=== PATIENT | male | born 1945 | race Caucasian/White ===

== ENCOUNTER 2017-09-18 07:41 | Day surgery (SDC) | payer MEDICARE, BC, SELFPAY ==
--- NOTE | 2017-09-11 11:33 | EKG12_ITS ---
Test Reason : PRE-OP Blood Pressure : / mmHG Vent. Rate : 073 BPM Atrial Rate : 073 BPM P-R Int : 134 ms QRS Dur : 112 ms QT Int : 444 ms P-R-T Axes : 081 060 -19 degrees QTc Int : 489 ms Normal sinus rhythm ST & T wave abnormality, consider inferior ischemia Abnormal ECG Confirmed by GINA BYRD ([id number]), purchase request editor RENATO CARTER ([id number]) on 09/14/2017 2:42:19 PM Referred By: Lakisha Figueroa Confirmed By:GINA BYRD
[2017-09-11 11:49] LABS: Hematocrit 39.4 % (40-54); Hemoglobin 13.2 g/dl (13.0-16.5); Mean Corp Hgb Conc 33.5 g/gl (32-36); Mean Corpuscular Hgb 31.7 pg (27.0-32.0); Mean Corpuscular Volume 94.7 fL (80-94); Mean Platelet Vol. 10.1 fl (6.2-12.0); Platelet Count 262 K/mm3 (150-450); RBC Distribution Width CV 12.9 % (11.6-14.6); RBC Distribution Width SD 44.5 fl (35.1-43.9); Red Blood Count 4.16 M/mm3 (4.6-6.2); White Blood Count 8.2 K/mm3 (4.4-11.0)
[2017-09-11 11:50] LABS: Scan Indicated on CBC? Y/N NO
[2017-09-11 12:01] LABS: Partial Thromboplast Time 37.7 Seconds (24.1-36.2)
[2017-09-11 14:32] LABS: AST(SGOT) 22 U/L (15-37); Alanine Aminotransfer ALT/SGPT 21 U/L (16-61); Albumin, Serum 2.9 g/dL (3.2-5.0); Alkaline Phosphatase 110 U/L (45-117); Anion Gap 5 (5-15); BUN 17 mg/dL (7-18); Bilirubin, Direct 0.16 mg/dL (0.00-0.30); Calcium,Total 8.8 mg/dL (8.5-10.1); Chloride 102 mmol/L (98-107); Creatinine, Serum 1.31 mg/dL (0.70-1.30); EST Glomerular Filtration Rate 57 mL/min (>60); Est Glom Filt Rate - Afr Amer 69 mL/min (>60); Globulin 3.5 g/dL (2.2-4.2); Glucose 91 mg/dL (74-106); Potassium 4.2 mmol/L (3.5-5.1); Protein, Total 6.4 g/dL (6.4-8.2); Sodium Level 136 mmol/L (136-145)
[2017-09-18] VITALS (7 sets, daily range): BP systolic 118–165; BP diastolic 74–85; PULSE 72–82; RESP 16–18; TEMP 36–36.1; O2SAT 94–99; BMI 19.5
[2017-09-18] MEDS: Cefazolin 2 GM in 0.9% Normal Saline 100 ML IV (09:02)
--- NOTE | 2017-09-18 09:04 | PCM.DC.HER ---
Discharge Diet: No Restrictions Discharge Activity: Return to Normal Activity, May not drive while taking narcotic pain medications. Lifting Restrictions: no lifting greater than 20 pounds for 6 weeks Call your doctor if your incision/area has: Continuous Slow Oozing, Foul Smelling Discharge Call your doctor if you observe: Fever of 101 or Higher Additional Dressing/Incision Instructions:: Leave dressings in place. May get wet in shower. Do not soak - no tub baths/swimming Allergies/Adverse Reactions: Allergies morphine Adverse Reaction (Verified 09/11/17 10:19) Nausea Medications to take at Discharge Multivit-Min/FA/Lycopene/Lut [Centrum Silver Tablet] 1 ea PO DAILY 08/31/13 Paroxetine HCl [Paxil] 20 mg PO DAILY 08/31/13 Atorvastatin Calcium [Lipitor] 80 mg PO QHS #30 tab 09/04/13 Carvedilol [Coreg (Beta Gely)] 6.25 mg PO BID #60 tab 09/04/13 Albuterol Inhaler [Ventolin Hfa] 1 puff INHALATION Q4H PRN PRN 10/03/16 Beclomethasone Diprop Inhaler [Qvar 80 Mcg Inhaler] 1 puff INHALATION BID 10/03/16 prednisone 5 mg tablet 4 mg PO QDAY 06/25/17 Albuterol Aerosols [Ventolin Aerosols] 2.5 mg INHALATION 4X/DAY 09/11/17 Hydroxychloroquine [Plaquenil] 200 mg PO QODAY 09/11/17 Hydroxychloroquine [Plaquenil] 300 mg PO QODAY 09/11/17 Omeprazole [Prilosec] 40 mg PO BID 09/11/17 Varenicline [Chantix] 1 mg PO DAILY 09/11/17 Primary Care Physician: Charly Benz MD [Primary Care Provider] - Please Follow Up With: Yahaira Mccann PA-C - call When: to be seen in 7-10 days, please call for date and time, thank you
--- NOTE | 2017-09-18 09:07 | OP.PN_ITS ---
Immediate Post-Op Note Date of Procedure: 09/18/17 Primary Surgeon/Physician: Lakisha Figueroa group therapy counselor: NOT,DEFINED Pre-Operative Diagnosis: left inguinal hernia Post-Operative Diagnosis: same Surgery/Procedure Performed:: left inguinal hernia repair with mesh Description of Surgical Findings:: left inguinal hernia Estimated Blood Loss: < 5 ml Specimen's removed: none Type of Anesthesia:: Local MAC ASA Class: ASA3 Severe Disease - Admit VTE Documentation VTE Present on Admission: Yes VTE Mechan Device Prophylaxis: SCD's
[2017-09-18] MEDS: Bupivacaine 0.25% 30 ML Vial (10:00)
--- NOTE | 2017-09-18 10:19 | OP.PCM_ITS ---
Report of Operation Date of Procedure: 09/18/17 Pre-Operative Diagnosis: left inguinal hernia Post-Operative Diagnosis: same Surgery/Procedure Performed:: left inguinal hernia repair with mesh Description of Surgical Findings:: left inguinal hernia - direct health information internship: NOT,DEFINED Type of Anesthesia:: Local MAC Anesthesiologist: Zack Rowley Specimen's removed: none Estimated Blood Loss (mL): < 5 ml Fluids Replaced: 700 ml RL Description of Procedure: After informed consent was obtained, the patient was brought to the Operating Room and placed in the supine position. Appropriate time out protocol was followed. The patient was then placed under anesthesia. The left groin area and lower torso and genitalia were then prepped with a sterile surgical skin preparation. Sterile surgical drapes were placed. This skin and subcutaneous tissues were then widely infiltrated with the local anesthetic. A skin incision was then made with a 15 blade scalpel over the hernia site in a transverse oblique fashion and carried down to the subcutaneous tissues using sharp dissection. Any hemorrhage was adequately controlled with electrocautery. Division of the tissues along the incision line continued down to the external oblique fascia was identified. It was then divided along its fibers using sharp dissection carefully avoiding any injury to any blood vessels /nerves. The spermatic cord was then isolated using blunt dissection and tagged with a Belén drain. The hernia defect was identified as a direct inguinal hernia. The spermatic cord was carefully inspected. There was no indirect inguinal hernia sac present. A Perfix plug was then placed in the preperitoneal space after opening the already filmy transversalis fascia at the floor of the inguinal canal. The repair of the hernia was then done. The Perfix mesh edges were sutured superiorly to the confluence of the internal oblique and transversalis fascia and the inferior aspect was sutured to Eloy' s ligament using interrupted 0 prolene suture. Another suture was placed at the pubic tubercle. The patch portion of the mesh was then sutured with 0 prolene suture in a continuous fashion to include the confluence of the internal oblique fascia superiorly, the pubic tubercle medially, and the Eloy' s ligament inferiorly. The lateral 'legs' of the mesh were then wrapped around the spermatic cord to recreate the internal ring. The spermatic cord was then replaced in its proper anatomical position. The external oblique fascia was then reapproximated over the spermatic cord to close the roof of the inguinal canal with a running 2-0 vicryl suture. Rafat's fascia was reapproximated with interrupted 3-0 vicryl sutures. The skin incision was reapproximated with a running 4-0 Monocryl suture. Cavilon and steristrips were placed to reinforce the skin closure and a sterile opsite dressing was applied. The patient was brought from to the Recovery Room in stable condition. Grafts/Implants Used: Bard Mesh Perfix plug lot#[id number] - Complications none noted - Admit VTE Documentation VTE Present on Admission: Yes VTE Mechan Device Prophylaxis: SCD's
== END 2017-09-18 11:24 | disposition home or self-care (01) ==
LOC: SDC 07:41 → AC 07:42
PROVIDERS: Family Provider Family Medicine; PCP Family Medicine; Visit Provider Surgery
PROC: (CPT 49505; principal; 2017-09-18 09:00)
DX: K40.90 Unilateral inguinal hernia, without obstruction or gangrene, not specified as recurrent (principal); K22.70 Barrett's esophagus without dysplasia; J44.9 Chronic obstructive pulmonary disease, unspecified; I25.10 Atherosclerotic heart disease of native coronary artery without angina pectoris; N18.3 Chronic kidney disease, stage 3 (moderate); I50.9 Heart failure, unspecified; F32.9 Major depressive disorder, single episode, unspecified; I42.0 Dilated cardiomyopathy; E78.00 Pure hypercholesterolemia, unspecified; I73.9 Peripheral vascular disease, unspecified; M19.90 Unspecified osteoarthritis, unspecified site; I27.20 Pulmonary hypertension, unspecified; G25.81 Restless legs syndrome; K21.9 Gastro-esophageal reflux disease without esophagitis; Z87.442 Personal history of urinary calculi; Z87.448 Personal history of other diseases of urinary system; Z87.19 Personal history of other diseases of the digestive system; Z87.2 Personal history of diseases of the skin and subcutaneous tissue; Z95.820 Peripheral vascular angioplasty status with implants and grafts; F17.200 Nicotine dependence, unspecified, uncomplicated; Z79.52 Long term (current) use of systemic steroids; Z79.899 Other long term (current) drug therapy
CPT/HCPCS: 49505; 36415; 80048; 80076; 85027; 85610; 85730; J7120; C1781

== ENCOUNTER 2018-01-15 11:07 | Inpatient (IN) | payer MEDICARE, BC, SELFPAY ==
[2018-01-15] VITALS (21 sets, daily range): BP systolic 83–178; BP diastolic 42–70; PULSE 75–113; RESP 16–36; TEMP 36.7–39.3; O2SAT 88–100; BMI 18.3; BMI 19.1; BMI 19.2
[2018-01-15] MEDS: 0.9% Normal Saline 1,000 ML 999 ML IV (11:30)
--- NOTE | 2018-01-15 11:50 | ED.RN ---
DR. CARSON NOTIFIED OF PT TRIAGE BP. VERBAL ORDER GIVEN FOR BOLUS OF NS, 1000 ML TO BE GIVEN IN TRIAGE WHILE PT WAITS FOR ROOM.
[2018-01-15 11:53] LABS: Mucous, Urine 0 SEEN /hpf (<or=2+); Red Blood Cells-Urine 0 SEEN /hpf (0-5); Squamous Epithelial Cells - UA 0 SEEN /hpf (0-5)
[2018-01-15 11:54] LABS: Color, Urine Yellow (Yellow); Glucose, Dipstick Normal (Normal); Ketone-Dipstick 5 mg/dl (Negative); Leukocyte Esterase-Dipstick 500 /ul (Negative); Nitrite-Dipstick Positive (Negative); Occult Blood-Urine 250 /ul (Negative); Protein-Dipstick 100 mg/dl (Negative); Specific Gravity, Urine 1.025 (1.002-1.030); Urine Clarity Turbid (Clear); Urine Urobilinogen 4 mg/dl (Normal)
[2018-01-15 11:56] LABS: Urine Bilirubin Dipstick 3 mg/dL (Negative)
--- NOTE | 2018-01-15 11:59 | EKG12_ITS ---
Test Reason : CP Blood Pressure : / mmHG Vent. Rate : 073 BPM Atrial Rate : 073 BPM P-R Int : 136 ms QRS Dur : 100 ms QT Int : 420 ms P-R-T Axes : 083 063 261 degrees QTc Int : 462 ms Normal sinus rhythm ST & T wave abnormality, consider inferolateral ischemia Prolonged QT Abnormal ECG Confirmed by BRAN BENSON, NIKOLAS ([id number]), publishing editor RENATO CARTER ([id number]) on 01/19/2018 1:08:33 PM Referred By: ALLI Confirmed By:NIKOLAS SOTOMAYOR MD
[2018-01-15 12:09] LABS: Bacteria 3+ /hpf (None Seen); White Blood Cells >100 SEEN /hpf (0-5)
[2018-01-15 12:13] LABS: Absolute Lymphocyte Count 0.56 X10^3/ul (0.83-4.51); Absolute Neutrophil Count 27.8 X10^3/uL (2.0-7.7); Basophil# 0.05 X10^3/uL; Basophil% 0.2 % (0-1); Eosinophil# 0.05 X10^3/uL; Eosinophils% 0.2 % (0-5); Hematocrit 42.8 % (40-54); Hemoglobin 14.6 g/dl (13.0-16.5); Lymphocyte # 0.56 X10^3/ul (4.0); Lymphocyte % 1.9 % (19-41); Mean Corp Hgb Conc 34.1 g/gl (32-36); Mean Corpuscular Hgb 33.2 pg (27.0-32.0); Mean Corpuscular Volume 97.3 fL (80-94); Mean Platelet Vol. 10.6 fl (6.2-12.0); Monocyte# 1.49 X10^3/uL; Monocyte% 4.9 % (0-10); Neutrophil # 27.84 X10^3/uL (2.7-7.7); Neutrophil % 92.2 % (47-70); Platelet Count 206 K/mm3 (150-450); RBC Distribution Width CV 12.8 % (11.6-14.6); RBC Distribution Width SD 44.1 fl (35.1-43.9)
[2018-01-15 12:17] LABS: Anion Gap 7 (5-15); BUN 24 mg/dL (7-18); BUN/Creat Ratio 10.5 RATIO (10-20); Calcium,Total 9.1 mg/dL (8.5-10.1); Chloride 106 mmol/L (98-107); Creatinine, Serum 2.28 mg/dL (0.70-1.30); Differential Indicated SCAN CRITERIA MET; EST Glomerular Filtration Rate 30 mL/min (>60); Est Glom Filt Rate - Afr Amer 36 mL/min (>60); Estimated Creatinine Clearance 20.36 ml/min; Glucose 94 mg/dL (74-106); POSITIVE COUNT YES; POSITIVE DIFFERENTIAL YES; POSITIVE MORPHOLOGY NO; Sodium Level 139 mmol/L (136-145); White Blood Count 30.2 K/mm3 (4.4-11.0)
--- NOTE | 2018-01-15 12:18 | ED.RN ---
LAB RESULTED WBC 30.2, PHYSICIAN NOTIFIED
[2018-01-15] MEDS: Ceftriaxone 1 GM/50 ML BAG IV (12:21)
[2018-01-15 12:23] LABS: Lactic Acid 2.6 mmol/L (0.4-2.0)
--- NOTE | 2018-01-15 12:29 | ED.DCSUM_ITS ---
- ER Visit Summary Date of Service: 01/15/18 Chief Complaint: Frequency, nausea vomiting fever chills History of Present Illness: The patient is a 72 M with multiple medical problems who presents with fever and chills yesterday. He complains of urgency with minimal urine output and dysuria. He states his urine looks different. He gives orthostatic symptoms. He states he does not feel well. He denies headache, visual, ocular auditory symptoms. He does complain of chronic shortness of breath secondary COPD. He has had some intermittent chest pain. He denies diarrhea. He denies any paresthesia, anesthesia motor weakness. Physical Examination: Initial blood pressure was 83/42 with a mean arterial pressure of 55. He is not febrile tachycardic. He appears ill. Pupils equal round reactive paradoxic muscle intact. Sclerae anicteric. TMs normal. Mucosa is dry. Heart is regular. Lungs reveal and his story rales at the bases. There is diminished breath sounds bilaterally. Abdomen is soft with suprapubic discomfort. Is no CVA tenderness noted. He is alert oriented with nonfocal neurologic exam. Test Results: White count is 30.2 thousand with 92 segs. Hemoglobin slightly elevated for patient. BMP is remarkable for elevated creatinine of 2.28 which is higher than baseline. Urine reveals leukoesterase nitrites blood and microscopic reveals grade 100 W disease with 3+ bacteria. Lactate elevated 2.6. EKG reveals sinus rhythm rate of [address]-T wave changes inferiorly and laterally. The lateral changes are new. The inferior changes are not. Emergency Department Course and Treatment: Since there is a concern this patient is septic he received a 30 cc/kg bolus. He received 1 g of Rocephin. Treatment Plan: Admit PCU stepdown Disposition: Admit PCU stepdown Impression: 1. UTI 2. Severe sepsis 3. Hypotension fluid responsive 4. History of COPD 5. Acute on chronic renal failure This note was generated with StormMQ dictation software. It may contain incorrect words, spelling, and punctuation that were not noted in review of the chart prior to signing ED Disposition - Plan for ED Patient: Chief Complaint: Nausea/Vomiting/Diarrhea Referrals: Charly Benz MD [Primary Care Provider] -
--- NOTE | 2018-01-15 14:18 | PCM.HP.STD ---
Problem List (1) Ischemic cardiomyopathy Status: Chronic (2) Other [employer] (current) drug therapy Status: Chronic (3) Atherosclerotic heart disease of [place] coronary artery without angina pectoris Status: Chronic Comment: Nondominant right coronary artery with total proximal occlusion Main coronary artery with 30% distal stenosis Left anterior descending artery with mild diffuse disease Ostial circumflex artery with 80% stenosis in a dominant vessel per [facility] 09/04/2013 (4) Nonrheumatic tricuspid (valve) insufficiency Status: Chronic (5) Hyperlipidemia Status: Chronic (6) Depression Status: Chronic (7) COPD (chronic obstructive pulmonary disease) Status: Chronic (8) 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 The patient is a 72 year old M who presents the emergency room with nausea, vomiting, bilateral flank pain, dysuria, frequency, hesitancy. Describes associated intermittent fever and chills. Patient states he began having urinary symptoms a few weeks ago with nausea beginning the last 2 days. Patient is dyspneic during assessment. He states this is his baseline breathing. Denies increased shortness of breath. Patient has chronic cough with occasional brown sputum. Denies chest pain. Patient complains of mild suprapubic discomfort. Denies other associated complaints. He has a past medical history of chronic kidney disease stage III, PVD, COPD, chronic systolic and diastolic CHF, ischemic cardio myopathy, hyperlipidemia, depression, tricuspid valve insufficiency, CAD, rheumatoid arthritis, tobacco dependence. Past Medical History Past Medical History (Chronic Problems): Chronic Problems (Last Reviewed 08/30/17 @ 18:42 by Beronica Pettit) Rheumatoid arthritis (Chronic) Ischemic cardiomyopathy (Chronic) Other correction (current) drug therapy (Chronic) Atherosclerotic heart disease of [place] coronary artery without angina pectoris (Chronic) Nondominant right coronary artery with total proximal occlusion Main coronary artery with 30% distal stenosis Left anterior descending artery with mild diffuse disease Ostial circumflex artery with 80% stenosis in a dominant vessel per [facility] 09/04/2013 Nonrheumatic tricuspid (valve) insufficiency (Chronic) Hyperlipidemia (Chronic) Depression (Chronic) COPD (chronic obstructive pulmonary disease) (Chronic) 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) 25% EF /14global diskinesia CKD (chronic kidney disease) stage 3, GFR 30-59 ml/min (Chronic) PVD (peripheral vascular disease) (Chronic) total occlusion of stents in iliacs, per cath 09/06 Medical History: Medical History (Last Reviewed 08/30/17 @ 18:42 by Beronica Pettit) Ischemic cardiomyopathy (Chronic) I25.5 Atherosclerotic heart disease of [place] coronary artery without angina pectoris (Chronic) I25.10 Nondominant right coronary artery with total proximal occlusion Main coronary artery with 30% distal stenosis Left anterior descending artery with mild diffuse disease Ostial circumflex artery with 80% stenosis in a dominant vessel per [facility] 09/04/2013 Nonrheumatic tricuspid (valve) insufficiency (Chronic) I36.1 Hyperlipidemia (Chronic) E78.5 Depression (Chronic) F32.9 COPD (chronic obstructive pulmonary disease) (Chronic) J44.9 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) I50.41 25% EF /14global diskinesia CKD (chronic kidney disease) stage 3, GFR 30-59 ml/min (Chronic) PVD (peripheral vascular disease) (Chronic) I73.9 total occlusion of stents in iliacs, per cath 09/06 Allergies morphine Adverse Reaction (Verified 01/15/18 11:12) Nausea Home Medications: Ambulatory Orders Medication Instructions Recorded Multivit-Min/FA/Lycopene/Lut 1 ea PO DAILY 08/31/13 [Centrum Silver Tablet] Paroxetine HCl [Paxil] 20 mg PO DAILY 08/31/13 Atorvastatin Calcium [Lipitor] 80 mg PO QHS #30 tab 09/04/13 Carvedilol [Coreg (Beta Gely)] 6.25 mg PO BID #60 tab 09/04/13 Albuterol Inhaler [Ventolin Hfa] 1 puff INHALATION Q4H PRN PRN 10/03/16 Beclomethasone Diprop Inhaler 1 puff INHALATION BID 10/03/16 [Qvar 80 Mcg Inhaler] prednisone 5 mg tablet 3 mg PO DAILY 06/25/17 Albuterol Aerosols [Ventolin 2.5 mg INHALATION 4X/DAY 09/11/17 Aerosols] Hydroxychloroquine [Plaquenil] 200 mg PO QODAY 09/11/17 Hydroxychloroquine [Plaquenil] 300 mg PO QODAY 09/11/17 Omeprazole [Prilosec] 40 mg PO BID 09/11/17 Surgical History: Surgical History (Last Reviewed 08/30/17 @ 18:42 by Beronica Pettit) History of right and left heart catheterization Z98.890 09/02/2016 right, with attempted left; 09/04/16 left heart cath per Dr. Sotelo [facility] Surgical History: adenoidectomy, appendectomy, tonsillectomy, - - Aortic aneurysm repair, left inguinal hernia repair, hemorrhoidectomy Psychiatric History: No pertinent psych hx Lives: Retirement Smoking Status: Heavy Smoker (>10/day) Tobacco Use: Cigarettes Alcohol: None Drugs: None - *Family History Offspring Family History: Family History (Last Reviewed 08/30/17 @ 18:42 by Beronica Pettit) Father CAD (coronary artery disease) History Items: No pertinent history Maternal Family History: Family History (Last Reviewed 08/30/17 @ 18:42 by Beronica Pettit) Father CAD (coronary artery disease) History Items: No pertinent history Paternal Family History: Family History (Last Reviewed 08/30/17 @ 18:42 by Beronica Pettit) Father CAD (coronary artery disease) History Items: No pertinent history Sibling Family History: Family History (Last Reviewed 08/30/17 @ 18:42 by Beronica Pettit) Father CAD (coronary artery disease) History Items: No pertinent history Review of Systems Constitutional: Reports: Chills, Fever, Weakness HEENT: Denies: Head Aches, Sinus Congestion, Sinus Drainage Cardiovascular: Denies: Chest Pain, Palpitations Respiratory: Denies: Cough, Shortness of breath at rest, Sputum production Gastrointestinal: Reports: Nausea, Vomiting. Denies: Abdominal Pain Genitourinary: Reports: Frequency Musculoskeletal: Denies: Joint Pain, Joint Tenderness Skin: Denies: Rash, Wounds Neurological: Denies: Numbness, Tingling, Focal weakness Psychiatric: Reports: Depression. Denies: Anxiety, Homicidal Ideations, Suicidal Ideations Hematologic/ Lymphatic: Denies: Easy Bruising, Easy Bleeding VTE Information - Inpt Only VTE Present on Admission: No VTE Mechan Device Prophylaxis: None VTE Pharm Prophylaxis ordered?: Yes - Physical Exam General: Alert, Oriented x3, Cooperative HEENT: Atraumatic, PERRLA, EOMI, Normocephalic Oral: Dry Mucosa Neck: Supple, No JVD, Negative Carotid Bruits Lungs: Diminished, Rales - Bilateral bases, Wheezes Cardiovascular: Regular rate, Regular Rhythm, Normal S1, Normal S2, No murmurs Abdomen: Bowel Sounds Present, Soft, Non Tender, Non-Distended Extremities: No clubbing, No cyanosis, No edema, Capillary Refill Less than 3 Seconds Skin: No rashes, No breakdown Musculoskeletal: No Tenderness to Palpation of Joints or Extremities, Cachexia Neurological: Cranial nerves II-XII grossly intact, Neuro grossly intact Psych/Mental Status: Normal Affect, Appropriate Vital Signs Temp Pulse Resp BP Pulse Ox 98.0 F 86 24 H 119/63 92 01/15/18 11:08 01/15/18 14:12 01/15/18 14:12 01/15/18 13:07 01/15/18 14:12 Oxygen Delivery Method Room Air Assessment/Plan All Active Problems (Last Reviewed 08/30/17 @ 18:42 by Beronica Pettit) CÉSAR (acute kidney injury) (Acute) Suicidal ideation (Resolved) 1. Severe sepsis secondary to acute UTI-UA positive. Urine sent for culture. Continue IV Rocephin. IV fluids. Lactic acid on admission 2.6. WBC 30.2. Tachypneic. Hypotensive. Complete post void bladder scan. Patient reports ongoing dribbling and hesitancy. Begin Flomax 0.4 mg daily. 2. Acute kidney injury on chronic kidney disease stage III-IV fluids, trend BMP. 3. Hypotension secondary to #1-improved with IV fluids. Continue to monitor. 4. CAD-continue statin, beta-gely. 5. Chronic combined systolic and diastolic CHF-follows with Dr. Sotelo. Continue home carvedilol regimen. 6. PVD-continue statin. 7. Chronic COPD-patient states his breathing is at baseline. Patient is dyspneic with scattered wheezing. Obtain chest x-ray. Continue supplemental oxygen to maintain O2 at or above 90%. Patient will need walking pulse ox prior to discharge. States he follows with pulmonary medicine out of town. 8. Hyperlipidemia-continue statin. 9. Depression-continue Paxil regimen. 10. GERD-continue omeprazole. 11. Moderate to severe protein calorie malnutrition-BMI 18.3. Consult nutrition. 12. Tobacco dependence-current pack per day smoker. Nicotine replacement patch. Encourage smoking cessation. 13. Rheumatoid arthritis-continue home regimen. DVT prophylaxis-heparin subcu. This patient was seen by BRITT Rosa under the supervision of Dr. Pguh.
--- NOTE | 2018-01-15 14:24 | HP.PCM_ITS ---
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 (3) Atherosclerotic heart disease of [place] coronary artery without angina pectoris Status: Chronic Comment: Nondominant right coronary artery with total proximal occlusion Main coronary artery with 30% distal stenosis Left anterior descending artery with mild diffuse disease Ostial circumflex artery with 80% stenosis in a dominant vessel per [facility] 2013 (4) Nonrheumatic tricuspid (valve) insufficiency Status: Chronic (5) Hyperlipidemia Status: Chronic (6) Depression Status: Chronic (7) COPD (chronic obstructive pulmonary disease) Status: Chronic (8) 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 The patient is a 72 year old M who presents the emergency room with nausea, vomiting, bilateral flank pain, dysuria, frequency, hesitancy. Describes associated intermittent fever and chills. Patient states he began having urinary symptoms a few weeks ago with nausea beginning the last 2 days. Patient is dyspneic during assessment. He states this is his baseline breathing. Denies increased shortness of breath. Patient has chronic cough with occasional brown sputum. Denies chest pain. Patient complains of mild suprapubic discomfort. Denies other associated complaints. He has a past medical history of chronic kidney disease stage III, PVD, COPD, chronic systolic and diastolic CHF, ischemic cardio myopathy, hyperlipidemia, depression , tricuspid valve insufficiency, CAD, rheumatoid arthritis, tobacco dependence. Past Medical History Past Medical History (Chronic Problems): Chronic Problems (Last Reviewed 08/30/17 @ 18:42 by Beronica Pettit) Rheumatoid arthritis (Chronic) Ischemic cardiomyopathy (Chronic) Other chcf (current) drug therapy (Chronic) Atherosclerotic heart disease of [place] coronary artery without angina pectoris (Chronic) Nondominant right coronary artery with total proximal occlusion Main coronary artery with 30% distal stenosis Left anterior descending artery with mild diffuse disease Ostial circumflex artery with 80% stenosis in a dominant vessel per [facility] 2013 Nonrheumatic tricuspid (valve) insufficiency (Chronic) Hyperlipidemia (Chronic) Depression (Chronic) COPD (chronic obstructive pulmonary disease) (Chronic) 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) 25% EF /14global diskinesia CKD (chronic kidney disease) stage 3, GFR 30-59 ml/min (Chronic) PVD (peripheral vascular disease) (Chronic) total occlusion of stents in iliacs, per cath 09/06 Medical History: Medical History (Last Reviewed 08/30/17 @ 18:42 by Beronica Pettit) Ischemic cardiomyopathy (Chronic) I25.5 Atherosclerotic heart disease of [place] coronary artery without angina pectoris (Chronic) I25.10 Nondominant right coronary artery with total proximal occlusion Main coronary artery with 30% distal stenosis Left anterior descending artery with mild diffuse disease Ostial circumflex artery with 80% stenosis in a dominant vessel per [facility] 2013 Nonrheumatic tricuspid (valve) insufficiency (Chronic) I36.1 Hyperlipidemia (Chronic) E78.5 Depression (Chronic) F32.9 COPD (chronic obstructive pulmonary disease) (Chronic) J44.9 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) I50.41 25% EF /14global diskinesia CKD (chronic kidney disease) stage 3, GFR 30-59 ml/min (Chronic) PVD (peripheral vascular disease) (Chronic) I73.9 total occlusion of stents in iliacs, per cath 09/06 Allergies morphine Adverse Reaction (Verified 01/15/18 11:12) Nausea Home Medications: Ambulatory Orders Medication Instructions Recorded Multivit-Min/FA/Lycopene/Lut 1 ea PO DAILY 08/31/13 [Centrum Silver Tablet] Paroxetine HCl [Paxil] 20 mg PO DAILY 08/31/13 Atorvastatin Calcium [Lipitor] 80 mg PO QHS #30 tab 09/04/13 Carvedilol [Coreg (Beta Gely)] 6.25 mg PO BID #60 tab 09/04/13 Albuterol Inhaler [Ventolin Hfa] 1 puff INHALATION Q4H PRN PRN 10/03/16 Beclomethasone Diprop Inhaler 1 puff INHALATION BID 10/03/16 [Qvar 80 Mcg Inhaler] prednisone 5 mg tablet 3 mg PO DAILY 06/25/17 Albuterol Aerosols [Ventolin 2.5 mg INHALATION 4X/DAY 09/11/17 Aerosols] Hydroxychloroquine [Plaquenil] 200 mg PO QODAY 09/11/17 Hydroxychloroquine [Plaquenil] 300 mg PO QODAY 09/11/17 Omeprazole [Prilosec] 40 mg PO BID 09/11/17 Surgical History: Surgical History (Last Reviewed 08/30/17 @ 18:42 by Beronica Pettit) History of right and left heart catheterization Z98.890 09/02/2016 right, with attempted left; 09/04/16 left heart cath per Dr. Sotelo [facility] Surgical History: adenoidectomy, appendectomy, tonsillectomy, - - Aortic aneurysm repair, left inguinal hernia repair, hemorrhoidectomy Psychiatric History: No pertinent psych hx Lives: [facility] Smoking Status: Heavy Smoker (>10/day) Tobacco Use: Cigarettes Alcohol: None Drugs: None - *Family History Offspring Family History: Family History (Last Reviewed 08/30/17 @ 18:42 by Beronica Pettit) Father CAD (coronary artery disease) History Items: No pertinent history Maternal Family History: Family History (Last Reviewed 08/30/17 @ 18:42 by Beronica Pettit) Father CAD (coronary artery disease) History Items: No pertinent history Paternal Family History: Family History (Last Reviewed 08/30/17 @ 18:42 by Beronica Pettit) Father CAD (coronary artery disease) History Items: No pertinent history Sibling Family History: Family History (Last Reviewed 08/30/17 @ 18:42 by Beronica Pettit) Father CAD (coronary artery disease) History Items: No pertinent history Review of Systems Constitutional: Reports: Chills, Fever, Weakness HEENT: Denies: Head Aches, Sinus Congestion, Sinus Drainage Cardiovascular: Denies: Chest Pain, Palpitations Respiratory: Denies: Cough, Shortness of breath at rest, Sputum production Gastrointestinal: Reports: Nausea, Vomiting. Denies: Abdominal Pain Genitourinary: Reports: Frequency Musculoskeletal: Denies: Joint Pain, Joint Tenderness Skin: Denies: Rash, Wounds Neurological: Denies: Numbness, Tingling, Focal weakness Psychiatric: Reports: Depression. Denies: Anxiety, Homicidal Ideations, Suicidal Ideations Hematologic/ Lymphatic: Denies: Easy Bruising, Easy Bleeding VTE Information - Inpt Only VTE Present on Admission: No VTE Mechan Device Prophylaxis: None VTE Pharm Prophylaxis ordered?: Yes - Physical Exam General: Alert, Oriented x3, Cooperative HEENT: Atraumatic, PERRLA, EOMI, Normocephalic Oral: Dry Mucosa Neck: Supple, No JVD, Negative Carotid Bruits Lungs: Diminished, Rales - Bilateral bases, Wheezes Cardiovascular: Regular rate, Regular Rhythm, Normal S1, Normal S2, No murmurs Abdomen: Bowel Sounds Present, Soft, Non Tender, Non-Distended Extremities: No clubbing, No cyanosis, No edema, Capillary Refill Less than 3 Seconds Skin: No rashes, No breakdown Musculoskeletal: No Tenderness to Palpation of Joints or Extremities, Cachexia Neurological: Cranial nerves II-XII grossly intact, Neuro grossly intact Psych/Mental Status: Normal Affect, Appropriate Vital Signs Temp Pulse Resp BP Pulse Ox 98.0 F 86 24 H 119/63 92 01/15/18 11:08 01/15/18 14:12 01/15/18 14:12 01/15/18 13:07 01/15/18 14:12 Oxygen Delivery Method Room Air Assessment/Plan All Active Problems (Last Reviewed 08/30/17 @ 18:42 by Beronica Pettit) CÉSAR (acute kidney injury) (Acute) Suicidal ideation (Resolved) 1. Severe sepsis secondary to acute UTI-UA positive. Urine sent for culture. Continue IV Rocephin. IV fluids. Lactic acid on admission 2.6. WBC 30.2. Tachypneic. Hypotensive. Complete post void bladder scan. Patient reports ongoing dribbling and hesitancy. Begin Flomax 0.4 mg daily. 2. Acute kidney injury on chronic kidney disease stage III-IV fluids, trend BMP. 3. Hypotension secondary to #1-improved with IV fluids. Continue to monitor. 4. CAD-continue statin, beta-gely. 5. Chronic combined systolic and diastolic CHF-follows with Dr. Sotelo. Continue home carvedilol regimen. 6. PVD-continue statin. 7. Chronic COPD-patient states his breathing is at baseline. Patient is dyspneic with scattered wheezing. Obtain chest x-ray. Continue supplemental oxygen to maintain O2 at or above 90%. Patient will need walking pulse ox prior to discharge. States he follows with pulmonary medicine out of town. 8. Hyperlipidemia-continue statin. 9. Depression-continue Paxil regimen. 10. GERD-continue omeprazole. 11. Moderate to severe protein calorie malnutrition-BMI 18.3. Consult nutrition. 12. Tobacco dependence-current pack per day smoker. Nicotine replacement patch. Encourage smoking cessation. 13. Rheumatoid arthritis-continue home regimen. DVT prophylaxis-heparin subcu. This patient was seen by BRITT Rosa under the supervision of Dr. Pugh.
[2018-01-15] MEDS: Ipratropium/Albuterol Sulfate 3 ML AMPUL.NEB INHALATION ×2 (14:55→19:39)
--- NOTE | 2018-01-15 15:36 | RAD_ITS ---
STUDY: X-RAY CHEST REASON FOR EXAM: Male, 72 years old. Shortness of breath. Fever. Sepsis. TECHNIQUE: Single AP portable view of the chest. COMPARISON: Acute abdominal series with chest, October 05, 2016. Chest, August 08, 2015. FINDINGS: The lungs are hyperexpanded with chronic interstitial changes suggesting COPD. No new mass or infiltrate. There is no demonstrated pleural abnormality. Normal size heart. Normal mediastinum and anitha. Normal visualized pulmonary arteries. Normal visualized aortic arch and descending thoracic aorta. There are diffuse degenerative changes of the visualized thoracic spine. There is degenerative osteoarthritis of the bilateral shoulders. There is no demonstrated abnormality of the visualized soft tissue structures of the upper abdomen. RAD/Chest 1 View (Portable) IMPRESSION: Question COPD without acute cardiopulmonary disease. Electronically Signed: Zoltan Rebolledo DO at 16:12 EDT Tel [phone], Service support ,
[2018-01-15 16:03] LABS: Reflex Lactate? Y
--- NOTE | 2018-01-15 16:29 | NURSING ---
pt not answering nurses questions at this time. unable to complete shift assess. will try again later
[2018-01-15 17:24] LABS: Lactic Acid 3.7 mmol/L (0.4-2.0)
[2018-01-15] MEDS: Ondansetron 4 MG/2 ML Vial IV (17:46)
[2018-01-15] MEDS: Heparin Injection (Vial) 5,000 UNIT/ML VIAL 5000 UNIT SC ×2 (17:47→21:29)
[2018-01-15] MEDS: Tamsulosin HCl 0.4 MG Capsule PO (17:49)
[2018-01-15] MEDS: Budesonide Respules 0.5 MG/2 ML AMPUL.NEB. INHALATION (19:39)
[2018-01-15] MEDS: 0.9% Normal Saline 1,000 ML 100 ML IV (21:25)
[2018-01-15] MEDS: Albuterol 2.5 MG/3 ML VIAL.NEB. INHALATION ×2 (21:26→23:30)
[2018-01-15] MEDS: Atorvastatin Calcium 80 MG Tablet PO (21:30)
[2018-01-15] MEDS: Carvedilol 6.25 MG Tablet PO (21:30)
[2018-01-15] MEDS: Acetaminophen 325 MG Tablet 650 MG PO (23:17)
[2018-01-16] VITALS (23 sets, daily range): BP systolic 83–136; BP diastolic 39–78; PULSE 61–107; RESP 16–26; TEMP 36.4–37.3; O2SAT 93–98
[2018-01-16] MEDS: Ipratropium/Albuterol Sulfate 3 ML AMPUL.NEB INHALATION ×4 (01:28→19:15)
[2018-01-16] MEDS: 0.9% Normal Saline 1,000 ML 100 ML IV ×3 (05:06→23:58)
[2018-01-16] MEDS: Heparin Injection (Vial) 5,000 UNIT/ML VIAL 5000 UNIT SC ×3 (05:06→21:46)
[2018-01-16 06:25] LABS: Absolute Lymphocyte Count 0.58 X10^3/ul (0.83-4.51); Absolute Neutrophil Count 16.6 X10^3/uL (2.0-7.7); Basophil# 0.02 X10^3/uL; Basophil% 0.1 % (0-1); Eosinophil# 0.01 X10^3/uL; Eosinophils% 0.1 % (0-5); Hematocrit 34.3 % (40-54); Hemoglobin 11.7 g/dl (13.0-16.5); Lymphocyte # 0.58 X10^3/ul (4.0); Lymphocyte % 3.1 % (19-41); Mean Corp Hgb Conc 34.1 g/gl (32-36); Mean Corpuscular Hgb 33.9 pg (27.0-32.0); Mean Corpuscular Volume 99.4 fL (80-94); Monocyte# 1.02 X10^3/uL; Monocyte% 5.5 % (0-10); Neutrophil # 16.63 X10^3/uL (2.7-7.7); Neutrophil % 88.8 % (47-70); Platelet Count 98 K/mm3 (150-450); RBC Distribution Width CV 13.1 % (11.6-14.6); RBC Distribution Width SD 45.3 fl (35.1-43.9); Red Blood Count 3.45 M/mm3 (4.6-6.2); White Blood Count 18.7 K/mm3 (4.4-11.0)
[2018-01-16 06:29] LABS: Differential Indicated SCAN CRITERIA MET; POSITIVE COUNT YES; POSITIVE DIFFERENTIAL YES; POSITIVE MORPHOLOGY YES
[2018-01-16 06:46] LABS: Anion Gap 9 (5-15); BUN 28 mg/dL (7-18); BUN/Creat Ratio 13.4 RATIO (10-20); Calcium,Total 7.6 mg/dL (8.5-10.1); Chloride 112 mmol/L (98-107); Creatinine, Serum 2.09 mg/dL (0.70-1.30); EST Glomerular Filtration Rate 33 mL/min (>60); Est Glom Filt Rate - Afr Amer 40 mL/min (>60); Estimated Creatinine Clearance 23.29 ml/min; Glucose 80 mg/dL (74-106); Potassium 4.1 mmol/L (3.5-5.1); Sodium Level 141 mmol/L (136-145)
[2018-01-16 06:58] LABS: Differential Comment SCANNED
[2018-01-16] MEDS: Pantoprazole Sodium 40 MG Tablet PO ×2 (07:08→21:46)
[2018-01-16] MEDS: Budesonide Respules 0.5 MG/2 ML AMPUL.NEB. INHALATION ×2 (07:37→19:15)
[2018-01-16] MEDS: Carvedilol 6.25 MG Tablet PO ×2 (09:01→21:46)
[2018-01-16] MEDS: predniSONE 1 MG Tablet 3 MG PO (09:01)
[2018-01-16] MEDS: Hydroxychloroquine 200 MG Tablet 300 MG PO (09:04)
[2018-01-16] MEDS: Albuterol 2.5 MG/3 ML VIAL.NEB. INHALATION ×3 (11:55→23:00)
--- NOTE | 2018-01-16 12:20 | CASEMGMT ---
arabella to Face with patient for initial transition planning/care coordination assessment. LINDA OLIVA introduced self and role at [facility], pt voices understanding and consents to assessment at this time. Pt is lying in bed in no distress at this time. Pt is A/O x4 at this time and answers all questions appropriately at this time. Care providers, pharmacy, and demographics verified. See attached link. Pt voices no further concerns/needs at this time. Advised pt to ask for CM if any further questions/concerns/needs arise, voices understanding. Pt requests that this LINDA OLIVA call daughter, Jud, to verify specialists and to get phone number for pt's granddaughter/HPOA, Kathia Smith. Granddaughter states no concerns with pt coming home at time of discharge. PL[place]IV[place]
--- NOTE | 2018-01-16 14:44 | PCM.PROGNOTE ---
Subjective: Patient seen and examined. Resting comfortably in bed no acute distress. Denies further nausea, vomiting. Denies fever, chills. Dysuria improved. No other complaints at this time. - Physical Exam General: Alert, Oriented x3, Cooperative, No apparent distress HEENT: Atraumatic, PERRLA, EOMI, Normocephalic Neck: Supple, No JVD, Negative Carotid Bruits Lungs: Clear to auscultation, Diminished Cardiovascular: Regular rate, Regular Rhythm, Normal S1, Normal S2, No murmurs Abdomen: Bowel Sounds Present, Soft, Non Tender, Non-Distended Extremities: No clubbing, No cyanosis, No edema, Capillary Refill Less than 3 Seconds Skin: No rashes, No breakdown Musculoskeletal: No Tenderness to Palpation of Joints or Extremities, Cachexia Neurological: Cranial nerves II-XII grossly intact, Neuro grossly intact Psych/Mental Status: Normal Affect, Appropriate Vital Signs Temp Pulse Resp BP Pulse Ox 97.5 F L 78 16 113/59 L 95 01/16/18 09:13 01/16/18 13:24 01/16/18 13:24 01/16/18 09:13 01/16/18 09:13 Oxygen Flow Rate (L/min) 2 Oxygen Delivery Method Nasal Cannula Weight: 115 lb 4.828 oz Body Mass Index (BMI) 19.1 Intake and Output for Last 24 Hours 01/14/18 01/15/18 01/16/18 23:59 23:59 23:59 Intake Total 1031 / 1031 1762 / 1762 Output Total 100 / 100 Balance 1031 / 1031 1662 / 1662 Laboratory Tests Past 24 Hrs 01/15/18 01/16/18 01/16/18 16:19 05:40 05:40 WBC 18.7 H RBC 3.45 L Hgb 11.7 L Hct 34.3 L MCV 99.4 H MCH 33.9 H MCHC 34.1 RDW 13.1 RDW Differential 45.3 H Plt Count 98 L MPV 11.0 Immature Gran % (Auto) 2.400 H Neut % (Auto) 88.8 H Lymph % (Auto) 3.1 L Sullivan % (Auto) 5.5 Eos % (Auto) 0.1 Baso % (Auto) 0.1 Absolute Neuts (auto) 16.6 H Absolute Lymphs (auto) 0.58 L Total Counted Not Reportable Differential Comment SCANNED Diff Path Review May foll Sodium 141 Potassium 4.1 Chloride 112 H Carbon Dioxide 20.0 L Anion Gap 9 BUN 28 H Creatinine 2.09 H Estim Creat Clear Calc 23.29 Est GFR (MDRD) Af Amer 40 L Est GFR (MDRD) Non-Af 33 L BUN/Creatinine Ratio 13.4 Glucose 80 Lactic Acid 3.7 H Calcium 7.6 L Medical Necessity - Tobacco Use Smoking Status: Heavy Smoker (>10/day) Tobacco Use: Cigarettes Assessment/Plan All Active Problems (Last Reviewed 08/30/17 @ 18:42 by Beronica Pettit) CÉSAR (acute kidney injury) (Acute) Suicidal ideation (Resolved) 1. Severe sepsis secondary to acute suspected gram-negative UTI with associated gram-negative bacteremia-UA positive. Urine culture pending. Continue IV Rocephin. IV fluids. (Severe sepsis criteria, present on admission with Lactic acid 2.6, WBC 30.2, Tachypneic, Hypotensive) Continue Flomax 0.4 mg daily. Leukocytosis improving. 2. Acute kidney injury on chronic kidney disease stage III-IV fluids, trend BMP. Improved with IV fluids. 3. Hypotension secondary to #1-improved with IV fluids. Continue to monitor. 4. CAD-continue statin, beta-mikel. 5. Chronic combined systolic and diastolic CHF-follows with Dr. Sotelo. Continue home carvedilol regimen. 6. PVD-continue statin. 7. Chronic COPD-patient states his breathing is at baseline. Patient is dyspneic with scattered wheezing. Chest x-ray shows COPD without acute cardiopulmonary process. Continue supplemental oxygen to maintain O2 at or above 90%. Patient will need walking pulse ox prior to discharge. States he follows with pulmonary medicine out of town. 8. Hyperlipidemia-continue statin. 9. Depression-continue Paxil regimen. 10. GERD-continue omeprazole. 11. Moderate to severe protein calorie malnutrition-BMI 18.3. Consult nutrition. 12. Tobacco dependence-current pack per day smoker. Nicotine replacement patch. Encourage smoking cessation. 13. Rheumatoid arthritis-continue home regimen. DVT prophylaxis-heparin subcu. This patient was seen by BRITT Rosa under the supervision of Dr. Pugh.
--- NOTE | 2018-01-16 16:02 | CHAPLAIN ---
Type of Pastoral Visit _x__ Initial Visit ___ Follow-up Visit ___ On-call Visit ___ General Patient Visit ___ Spiritual Assessment ___ Family Conference ___ Bereavement ___ Rapid Response ___ Code Blue ___ Other (describe below) Pastoral Care Referral From _x__ Patient ___ Family ___ Nurse ___ Physician ___ Dietitian Chief ___ Inbound Sales Advisor ___ Other (describe below) Sacrament/Intervention _x__ Active listening ___ Anointing ___ Episcopalian ___ Bereavement ___ Communion ___ Lilia exploration ___ ___ Life review ___ Prayer ___ Reconciliation ___ Sacrament of Sick ___ Supportive presence ___ Wedding ___ Other (describe below) Pastoral Comments patient is blunt in conversation; pt says that he does not accept any adventism; offered emotional support and asked pt to describe his life and what is happening; pt continued to talk about himself; pt said that he did not need anything and believes he is getting better; pt said that the truth is that his body is wearing out;pt says that he has numerous family members living with him at his house
[2018-01-16 16:28] LABS: Pathologist Review Reviewed
[2018-01-16 16:30] LABS: Pathologist Review Reviewed
[2018-01-16] MEDS: Tamsulosin HCl 0.4 MG Capsule PO (16:33)
[2018-01-16] MEDS: Acetaminophen 325 MG Tablet 650 MG PO (20:14)
[2018-01-16] MEDS: Atorvastatin Calcium 80 MG Tablet PO (21:46)
[2018-01-17] VITALS (14 sets, daily range): BP systolic 114–131; BP diastolic 61–74; PULSE 58–101; RESP 16–20; TEMP 37.1–37.3; O2SAT 92–96
[2018-01-17] MEDS: Albuterol 2.5 MG/3 ML VIAL.NEB. INHALATION ×3 (01:15→11:18)
[2018-01-17] MEDS: Heparin Injection (Vial) 5,000 UNIT/ML VIAL 5000 UNIT SC (06:12)
[2018-01-17] MEDS: Ipratropium/Albuterol Sulfate 3 ML AMPUL.NEB INHALATION ×2 (06:57→12:55)
[2018-01-17] MEDS: Budesonide Respules 0.5 MG/2 ML AMPUL.NEB. INHALATION (07:00)
[2018-01-17] MEDS: Pantoprazole Sodium 40 MG Tablet PO (08:19)
[2018-01-17] MEDS: Hydroxychloroquine 200 MG Tablet PO (08:20)
[2018-01-17] MEDS: predniSONE 1 MG Tablet 3 MG PO (08:21)
[2018-01-17 08:24] LABS: Absolute Lymphocyte Count 0.42 X10^3/ul (0.83-4.51); Absolute Neutrophil Count 12.3 X10^3/uL (2.0-7.7); Basophil# 0.02 X10^3/uL; Basophil% 0.2 % (0-1); Eosinophil# 0.05 X10^3/uL; Eosinophils% 0.4 % (0-5); Hematocrit 34.9 % (40-54); Hemoglobin 11.5 g/dl (13.0-16.5); Lymphocyte # 0.42 X10^3/ul (4.0); Lymphocyte % 3.2 % (19-41); Mean Corpuscular Hgb 32.6 pg (27.0-32.0); Mean Corpuscular Volume 98.9 fL (80-94); Mean Platelet Vol. 11.5 fl (6.2-12.0); Neutrophil # 12.28 X10^3/uL (2.7-7.7); Neutrophil % 92.9 % (47-70); Platelet Count 87 K/mm3 (150-450); RBC Distribution Width CV 13.3 % (11.6-14.6); RBC Distribution Width SD 48.1 fl (35.1-43.9); Red Blood Count 3.53 M/mm3 (4.6-6.2); White Blood Count 13.2 K/mm3 (4.4-11.0)
[2018-01-17 08:33] LABS: Differential Indicated SCAN CRITERIA MET; POSITIVE COUNT NO; POSITIVE DIFFERENTIAL YES; POSITIVE MORPHOLOGY NO
[2018-01-17] MEDS: Carvedilol 6.25 MG Tablet PO (10:02)
[2018-01-17] MEDS: Cefazolin 1 GM/50 ML BAG IV (10:12)
--- NOTE | 2018-01-17 11:17 | PCM.DC ---
- Discharge Diagnoses Current Active Problems: Current Active and Chronic Problems (Last Reviewed 08/30/17 @ 18:42 by Beronica Pettit) Rheumatoid arthritis (Chronic) You will use the following diet at home:: Cardiac Discharge Activity: Return to Normal Activity Call your doctor if you observe: Fever of 101 or Higher, Inability to urinate, Dizziness, Fainting spells, Chest pain Allergies/Adverse Reactions: Allergies morphine Adverse Reaction (Verified 01/15/18 11:12) Nausea Medications to take at Discharge Multivit-Min/FA/Lycopene/Lut [Centrum Silver Tablet] 1 ea PO DAILY 08/31/13 Paroxetine HCl [Paxil] 20 mg PO DAILY 08/31/13 Atorvastatin Calcium [Lipitor] 80 mg PO QHS #30 tab 09/04/13 Carvedilol [Coreg (Beta Gely)] 6.25 mg PO BID #60 tab 09/04/13 Albuterol Inhaler [Ventolin Hfa] 1 puff INHALATION Q4H PRN PRN 10/03/16 Beclomethasone Diprop Inhaler [Qvar 80 Mcg Inhaler] 1 puff INHALATION BID 10/03/16 prednisone 5 mg tablet 3 mg PO DAILY 06/25/17 Albuterol Aerosols [Ventolin Aerosols] 2.5 mg INHALATION 4X/DAY 09/11/17 Hydroxychloroquine [Plaquenil] 200 mg PO QODAY 09/11/17 Hydroxychloroquine [Plaquenil] 300 mg PO QODAY 09/11/17 Omeprazole [Prilosec] 40 mg PO BID 09/11/17 Ciprofloxacin [Cipro] 500 mg PO BID #20 tab 01/17/18 Tamsulosin HCl [Flomax] 0.4 mg PO DAILY@1730 #30 cap 01/17/18 The following prescriptions were given: Tamsulosin HCl [Flomax] 0.4 mg PO DAILY@1730 #30 cap Ciprofloxacin [Cipro] 500 mg PO BID #20 tab Primary Care Physician: Charly Benz MD [Primary Care Provider] - Please follow up with your Primary Care Physician in: 1 Week Test Results: Test results from this visit will be discussed in further detail at your follow-up appointment, if applicable. Proposed Discharge Date: 01/17/18
--- NOTE | 2018-01-17 11:21 | CASEMGMT ---
Addendum entered by Giselle Florian 01/17/18 11:49: Per Rosalba MCKEON, pt does not qualify for home oxygen at this time. Magda MCKEON CM Original Note: If pt qualifies for home oxygen, pt states would like [facility]. Awaiting home oxygen qualification. Magda MCKEON CM
--- NOTE | 2018-01-17 11:23 | DCINST_ITS ---
- Discharge Diagnoses Current Active Problems: Current Active and Chronic Problems (Last Reviewed 08/30/17 @ 18:42 by Beronica Pettit) Rheumatoid arthritis (Chronic) You will use the following diet at home:: Cardiac Discharge Activity: Return to Normal Activity Call your doctor if you observe: Fever of 101 or Higher, Inability to urinate, Dizziness, Fainting spells, Chest pain Allergies/Adverse Reactions: Allergies morphine Adverse Reaction (Verified 01/15/18 11:12) Nausea Medications to take at Discharge Multivit-Min/FA/Lycopene/Lut [Centrum Silver Tablet] 1 ea PO DAILY 08/31/13 Paroxetine HCl [Paxil] 20 mg PO DAILY 08/31/13 Atorvastatin Calcium [Lipitor] 80 mg PO QHS #30 tab 09/04/13 Carvedilol [Coreg (Beta Gely)] 6.25 mg PO BID #60 tab 09/04/13 Albuterol Inhaler [Ventolin Hfa] 1 puff INHALATION Q4H PRN PRN 10/03/16 Beclomethasone Diprop Inhaler [Qvar 80 Mcg Inhaler] 1 puff INHALATION BID prednisone 5 mg tablet 3 mg PO DAILY 06/25/17 Albuterol Aerosols [Ventolin Aerosols] 2.5 mg INHALATION 4X/DAY 09/11/17 Hydroxychloroquine [Plaquenil] 200 mg PO QODAY 09/11/17 Hydroxychloroquine [Plaquenil] 300 mg PO QODAY 09/11/17 Omeprazole [Prilosec] 40 mg PO BID 09/11/17 Ciprofloxacin [Cipro] 500 mg PO BID #20 tab 01/17/18 Tamsulosin HCl [Flomax] 0.4 mg PO DAILY@1730 #30 cap 01/17/18 The following prescriptions were given: Tamsulosin HCl [Flomax] 0.4 mg PO DAILY@1730 #30 cap Ciprofloxacin [Cipro] 500 mg PO BID #20 tab Primary Care Physician: Charly Benz MD [Primary Care Provider] - Please follow up with your Primary Care Physician in: 1 Week Test Results: Test results from this visit will be discussed in further detail at your follow- up appointment, if applicable. Proposed Discharge Date: 01/17/18
--- NOTE | 2018-01-17 11:28 | PCM.DC.SUM ---
Discharge Date and Diagnosis Date of Admission: 01/15/18 Date of Discharge: 01/17/18 - Primary Discharge Diagnosis 1. Severe sepsis secondary to acute E. coli cystitis 2. Acute kidney injury on chronic kidney disease stage III 3. Hypotension, secondary #1 4. Rheumatoid arthritis 5. CAD 6. Chronic combined systolic and diastolic CHF 7. PVD 8. Hyperlipidemia 9. Depression 10. GERD 11. Moderate protein calorie restriction 12. Tobacco dependence - Secondary Discharge Diagnosis Chronic Problems (Last Reviewed 08/30/17 @ 18:42 by Beronica Pettit) Rheumatoid arthritis (Chronic) Ischemic cardiomyopathy (Chronic) Other [facility] (current) drug therapy (Chronic) Atherosclerotic heart disease of [place] coronary artery without angina pectoris (Chronic) Nondominant right coronary artery with total proximal occlusion Main coronary artery with 30% distal stenosis Left anterior descending artery with mild diffuse disease Ostial circumflex artery with 80% stenosis in a dominant vessel per [facility] 09/04/2013 Nonrheumatic tricuspid (valve) insufficiency (Chronic) Hyperlipidemia (Chronic) Depression (Chronic) COPD (chronic obstructive pulmonary disease) (Chronic) 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) 25% EF 09/06global diskinesia CKD (chronic kidney disease) stage 3, GFR 30-59 ml/min (Chronic) PVD (peripheral vascular disease) (Chronic) total occlusion of stents in iliacs, per cath 09/06 Hospital Course and Treatment Imaging Results: Diagnostic Data Chest X-Ray 01/15/18 15:36 IMPRESSION: Question COPD without acute cardiopulmonary disease. Electronically Signed: Zoltan Rebolledo DO at 16:12 EDT Tel [phone], Service support , Operations: None Procedures: None Summary of Care Provided: 1. Severe sepsis secondary to acute E. coli UTI with associated gram-negative bacteremia-urine culture positive for E. coli. Patient received IV Rocephin. Patient will be discharged on Cipro 500 mg twice daily for 10 days. (Severe sepsis criteria, present on admission with Lactic acid 2.6, WBC 30.2, Tachypneic, Hypotensive) Continue Flomax 0.4 mg daily. If patient continues to have dribbling or recurrent UTI, recommend referral to urology. Follow-up with primary care physician in 1 week. 2. Acute kidney injury on chronic kidney disease stage III-improved with IV fluids. Repeat BMP in 1 week. 3. Hypotension secondary to #1-improved with IV fluids. Continue to monitor. 4. CAD-continue statin, beta-gely. 5. Chronic combined systolic and diastolic CHF-follows with Dr. Sotelo. Continue home carvedilol regimen. 6. PVD-continue statin. 7. Chronic COPD-patient states his breathing is at baseline. Patient is dyspneic with scattered wheezing. Chest x-ray shows COPD without acute cardiopulmonary process. Follow-up with pulmonary medicine as scheduled. Patient follows with a steam box operator out of town. Walking pulse ox completed prior to discharge and patient did not require supplemental oxygen. 8. Hyperlipidemia-continue statin. 9. Depression-continue Paxil regimen. 10. GERD-continue omeprazole. 11. Moderate to severe protein calorie malnutrition-BMI 18.3. Recommend continued ensure/boost supplements at discharge. 12. Tobacco dependence-current pack per day smoker. Encourage smoking cessation. 13. Rheumatoid arthritis-continue home regimen. General: Alert, Oriented x3, Cooperative, No apparent distress HEENT: Atraumatic, PERRLA, EOMI, Normocephalic Neck: Supple, No JVD, Negative Carotid Bruits Lungs: Clear to auscultation, Diminished Cardiovascular: Regular rate, Regular Rhythm, Normal S1, Normal S2, No murmurs Abdomen: Bowel Sounds Present, Soft, Non Tender, Non-Distended Extremities: No clubbing, No cyanosis, No edema, Capillary Refill Less than 3 Seconds Skin: No rashes, No breakdown Musculoskeletal: No Tenderness to Palpation of Joints or Extremities, Cachexia Neurological: Cranial nerves II-XII grossly intact, Neuro grossly intact Psych/Mental Status: Normal Affect, Appropriate Patient seen exam prior to discharge. Physical assessment as noted above. Patient is stable for discharge home. This patient was seen by BRITT Rosa under the supervision of Dr. Pugh. Discharge Diet: Low fat/ Low Cholesterol Discharge Activity: Return to Normal Activity Call your doctor if you observe: Fever of 101 or Higher, Inability to urinate, Dizziness, Fainting spells, Chest pain Home Medications: Medications to take at Discharge Multivit-Min/FA/Lycopene/Lut [Centrum Silver Tablet] 1 ea PO DAILY 08/31/13 Paroxetine HCl [Paxil] 20 mg PO DAILY 08/31/13 Atorvastatin Calcium [Lipitor] 80 mg PO QHS #30 tab 09/04/13 Carvedilol [Coreg (Beta Gely)] 6.25 mg PO BID #60 tab 09/04/13 Albuterol Inhaler [Ventolin Hfa] 1 puff INHALATION Q4H PRN PRN 10/03/16 Beclomethasone Diprop Inhaler [Qvar 80 Mcg Inhaler] 1 puff INHALATION BID 10/03/16 prednisone 5 mg tablet 3 mg PO DAILY 06/25/17 Albuterol Aerosols [Ventolin Aerosols] 2.5 mg INHALATION 4X/DAY 09/11/17 Hydroxychloroquine [Plaquenil] 200 mg PO QODAY 09/11/17 Hydroxychloroquine [Plaquenil] 300 mg PO QODAY 09/11/17 Omeprazole [Prilosec] 40 mg PO BID 09/11/17 Ciprofloxacin [Cipro] 500 mg PO BID #20 tab 01/17/18 Tamsulosin HCl [Flomax] 0.4 mg PO DAILY@1730 #30 cap 01/17/18 Following Prescrptions Were Given to Patient: Tamsulosin HCl [Flomax] 0.4 mg PO DAILY@1730 #30 cap Ciprofloxacin [Cipro] 500 mg PO BID #20 tab Primary Care Physician: Charly Benz MD [Primary Care Provider] - Please follow up with your Primary Care Physician in: 1 Week Disposition: Home Minutes spent on discharge:: 35 Patient Condition:: Stable Medical Necessity - Tobacco Use Smoking Status: Heavy Smoker (>10/day) Tobacco Use: Cigarettes Meaningful Use Info Meaningful Use Diagnoses (Choose all that apply): None applicable
--- NOTE | 2018-01-17 11:37 | DS.PCM_ITS ---
Addendum entered and electronically signed by BRITT Rosa 01/17/18 11:40: Code Visit Addendum to discharge diagnoses #1- Severe sepsis secondary to acute E. coli cystitis with associated E. coli bacteremia Original Note: Discharge Date and Diagnosis Date of Admission: 01/15/18 Date of Discharge: 01/17/18 - Primary Discharge Diagnosis 1. Severe sepsis secondary to acute E. coli cystitis 2. Acute kidney injury on chronic kidney disease stage III 3. Hypotension, secondary #1 4. Rheumatoid arthritis 5. CAD 6. Chronic combined systolic and diastolic CHF 7. PVD 8. Hyperlipidemia 9. Depression 10. GERD 11. Moderate protein calorie restriction 12. Tobacco dependence - Secondary Discharge Diagnosis Chronic Problems (Last Reviewed 08/30/17 @ 18:42 by Beronica Pettit) Rheumatoid arthritis (Chronic) Ischemic cardiomyopathy (Chronic) Other halfway (current) drug therapy (Chronic) Atherosclerotic heart disease of [place] coronary artery without angina pectoris (Chronic) Nondominant right coronary artery with total proximal occlusion Main coronary artery with 30% distal stenosis Left anterior descending artery with mild diffuse disease Ostial circumflex artery with 80% stenosis in a dominant vessel per [facility] 2013 Nonrheumatic tricuspid (valve) insufficiency (Chronic) Hyperlipidemia (Chronic) Depression (Chronic) COPD (chronic obstructive pulmonary disease) (Chronic) 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) 25% EF 09/06global diskinesia CKD (chronic kidney disease) stage 3, GFR 30-59 ml/min (Chronic) PVD (peripheral vascular disease) (Chronic) total occlusion of stents in iliacs, per cath 09/06 Hospital Course and Treatment Imaging Results: Diagnostic Data Chest X-Ray 01/15/18 15:36 IMPRESSION: Question COPD without acute cardiopulmonary disease. Electronically Signed: Zoltan Rebolledo DO at 16:12 EDT Tel [phone], Service support , Operations: None Procedures: None Summary of Care Provided: 1. Severe sepsis secondary to acute E. coli UTI with associated gram-negative bacteremia-urine culture positive for E. coli. Patient received IV Rocephin. Patient will be discharged on Cipro 500 mg twice daily for 10 days. (Severe sepsis criteria, present on admission with Lactic acid 2.6, WBC 30.2, Tachypneic , Hypotensive) Continue Flomax 0.4 mg daily. If patient continues to have dribbling or recurrent UTI, recommend referral to urology. Follow-up with primary care physician in 1 week. 2. Acute kidney injury on chronic kidney disease stage III-improved with IV fluids. Repeat BMP in 1 week. 3. Hypotension secondary to #1-improved with IV fluids. Continue to monitor. 4. CAD-continue statin, beta-gely. 5. Chronic combined systolic and diastolic CHF-follows with Dr. Sotelo. Continue home carvedilol regimen. 6. PVD-continue statin. 7. Chronic COPD-patient states his breathing is at baseline. Patient is dyspneic with scattered wheezing. Chest x-ray shows COPD without acute cardiopulmonary process. Follow-up with pulmonary medicine as scheduled. Patient follows with a tobacco curer out of town. Walking pulse ox completed prior to discharge and patient did not require supplemental oxygen. 8. Hyperlipidemia-continue statin. 9. Depression-continue Paxil regimen. 10. GERD-continue omeprazole. 11. Moderate to severe protein calorie malnutrition-BMI 18.3. Recommend continued ensure/boost supplements at discharge. 12. Tobacco dependence-current pack per day smoker. Encourage smoking cessation. 13. Rheumatoid arthritis-continue home regimen. General: Alert, Oriented x3, Cooperative, No apparent distress HEENT: Atraumatic, PERRLA, EOMI, Normocephalic Neck: Supple, No JVD, Negative Carotid Bruits Lungs: Clear to auscultation, Diminished Cardiovascular: Regular rate, Regular Rhythm, Normal S1, Normal S2, No murmurs Abdomen: Bowel Sounds Present, Soft, Non Tender, Non-Distended Extremities: No clubbing, No cyanosis, No edema, Capillary Refill Less than 3 Seconds Skin: No rashes, No breakdown Musculoskeletal: No Tenderness to Palpation of Joints or Extremities, Cachexia Neurological: Cranial nerves II-XII grossly intact, Neuro grossly intact Psych/Mental Status: Normal Affect, Appropriate Patient seen exam prior to discharge. Physical assessment as noted above. Patient is stable for discharge home. This patient was seen by BRITT Rosa under the supervision of Dr. Pugh. Discharge Diet: Low fat/ Low Cholesterol Discharge Activity: Return to Normal Activity Call your doctor if you observe: Fever of 101 or Higher, Inability to urinate, Dizziness, Fainting spells, Chest pain Home Medications: Medications to take at Discharge Multivit-Min/FA/Lycopene/Lut [Centrum Silver Tablet] 1 ea PO DAILY 08/31/13 Paroxetine HCl [Paxil] 20 mg PO DAILY 08/31/13 Atorvastatin Calcium [Lipitor] 80 mg PO QHS #30 tab 09/04/13 Carvedilol [Coreg (Beta Gely)] 6.25 mg PO BID #60 tab 09/04/13 Albuterol Inhaler [Ventolin Hfa] 1 puff INHALATION Q4H PRN PRN 10/03/16 Beclomethasone Diprop Inhaler [Qvar 80 Mcg Inhaler] 1 puff INHALATION BID prednisone 5 mg tablet 3 mg PO DAILY 06/25/17 Albuterol Aerosols [Ventolin Aerosols] 2.5 mg INHALATION 4X/DAY 09/11/17 Hydroxychloroquine [Plaquenil] 200 mg PO QODAY 09/11/17 Hydroxychloroquine [Plaquenil] 300 mg PO QODAY 09/11/17 Omeprazole [Prilosec] 40 mg PO BID 09/11/17 Ciprofloxacin [Cipro] 500 mg PO BID #20 tab 01/17/18 Tamsulosin HCl [Flomax] 0.4 mg PO DAILY@1730 #30 cap 01/17/18 Following Prescrptions Were Given to Patient: Tamsulosin HCl [Flomax] 0.4 mg PO DAILY@1730 #30 cap Ciprofloxacin [Cipro] 500 mg PO BID #20 tab Primary Care Physician: Charly Benz MD [Primary Care Provider] - Please follow up with your Primary Care Physician in: 1 Week Disposition: Home Minutes spent on discharge:: 35 Patient Condition:: Stable Medical Necessity - Tobacco Use Smoking Status: Heavy Smoker (>10/day) Tobacco Use: Cigarettes Meaningful Use Info Meaningful Use Diagnoses (Choose all that apply): None applicable
--- NOTE | 2018-01-19 11:22 | CASEMGMT ---
RN CM F/U phone call. Intro role of CM to patient via home phone. Pt states he is doing well, no questions re: f/u appointment, dc instructions. Pt stated his care was exceptional and had no suggestions. Arturo SUMMERSN RN ACM
== END 2018-01-17 15:49 | disposition home or self-care (01) | DRG 872 ==
LOC: ED 13:11 → PCU 13:13
PROVIDERS: Admitting Provider Internal Medicine; Emergency Provider Emergency Medicine; Family Provider Family Medicine; PCP Family Medicine; Visit Provider Internal Medicine
DX: A41.51 Sepsis due to Escherichia coli [E. coli] (principal); N30.00 Acute cystitis without hematuria; N17.9 Acute kidney failure, unspecified; E44.0 Moderate protein-calorie malnutrition; Z68.1 Body mass index [BMI] 19.9 or less, adult; I50.42 Chronic combined systolic (congestive) and diastolic (congestive) heart failure; R65.20 Severe sepsis without septic shock; I95.9 Hypotension, unspecified; B96.20 Unspecified Escherichia coli [E. coli] as the cause of diseases classified elsewhere; N18.3 Chronic kidney disease, stage 3 (moderate); I25.10 Atherosclerotic heart disease of native coronary artery without angina pectoris; I25.5 Ischemic cardiomyopathy; M06.9 Rheumatoid arthritis, unspecified; J44.9 Chronic obstructive pulmonary disease, unspecified; I73.9 Peripheral vascular disease, unspecified; E78.5 Hyperlipidemia, unspecified; K21.9 Gastro-esophageal reflux disease without esophagitis; F32.9 Major depressive disorder, single episode, unspecified; F17.210 Nicotine dependence, cigarettes, uncomplicated; Z79.52 Long term (current) use of systemic steroids; Z79.899 Other long term (current) drug therapy; Z86.73 Personal history of transient ischemic attack (TIA), and cerebral infarction without residual deficits
CPT/HCPCS: 36415; 71045; 80048; 81001; 83605; 85025; 87040; 87077; 87086; 87088; 87186; 93005; 94640; 97110; 97162; 97165; 97802; 99285; J7030; J7040; J0696; J2405

== ENCOUNTER 2018-03-06 09:46 | Emergency (ER) | payer MEDICARE, BC, SELFPAY ==
[2018-03-06 09:47] VITALS: BP 144/79; PULSE 102; RESP 20; TEMP 36.3; O2SAT 94; BMI 18.3
[2018-03-06 10:19] LABS: Absolute Lymphocyte Count 0.62 X10^3/ul (0.83-4.51); Absolute Neutrophil Count 8.2 X10^3/uL (2.0-7.7); Basophil# 0.04 X10^3/uL; Basophil% 0.4 % (0-1); Hematocrit 40.1 % (40-54); Hemoglobin 13.2 g/dl (13.0-16.5); Lymphocyte # 0.62 X10^3/ul (4.0); Lymphocyte % 6.3 % (19-41); Mean Corp Hgb Conc 32.9 g/gl (32-36); Mean Corpuscular Hgb 32.2 pg (27.0-32.0); Mean Corpuscular Volume 97.8 fL (80-94); Mean Platelet Vol. 9.9 fl (6.2-12.0); Monocyte# 0.69 X10^3/uL; Neutrophil % 83.2 % (47-70); POSITIVE COUNT NO; POSITIVE DIFFERENTIAL NO; POSITIVE MORPHOLOGY NO; Platelet Count 222 K/mm3 (150-450); RBC Distribution Width CV 13.6 % (11.6-14.6); RBC Distribution Width SD 48.7 fl (35.1-43.9); White Blood Count 9.9 K/mm3 (4.4-11.0)
[2018-03-06 10:32] LABS: Anion Gap 8 (5-15); BUN 25 mg/dL (7-18); BUN/Creat Ratio 15.7 RATIO (10-20); Calcium,Total 9.2 mg/dL (8.5-10.1); Chloride 108 mmol/L (98-107); Creatinine, Serum 1.59 mg/dL (0.70-1.30); EST Glomerular Filtration Rate 46 mL/min (>60); Est Glom Filt Rate - Afr Amer 55 mL/min (>60); Glucose 112 mg/dL (74-106); Potassium 4.4 mmol/L (3.5-5.1); Sodium Level 142 mmol/L (136-145)
--- NOTE | 2018-03-06 10:41 | ED.DCSUM_ITS ---
- ER Visit Summary Date of Service: 03/06/18 Chief Complaint: Rectal pain and was diagnosed by urologist yesterday with prostatitis. Prescription for antibiotic was called into pharmacy. 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 History of Present Illness: The patient is a 72 M who presents with constipation for the past 4-5 days with rectal pain and diagnosis of prostatitis by urologist. He denies fever, chills night sweats. He has no more short of breath than normal. He has end-stage COPD with weight loss. He denies nausea, vomiting or abdominal pain. He denies dysuria, frequency, urgency or hematuria. He states is having difficulty urinating. He denies any testicular pain. He denies any hematologic, immunologic, or neurologic symptoms. Physical Examination: Vital signs noted and blood pressure is elevated 144/77. Head is atraumatic normocephalic. Pupils are equal round reactive. Extraocular muscles are intact. TMs are pearly white with landmarks noted. Nares patent with no drainage. Posterior pharynx without erythema or exudate. Uvula is midline. There is no dysphonia or dysphasia. Trachea is midline. There is no stridor with auscultation of the neck. Heart is regular without murmur, gallop or rub. S1 and S2 are normal. Lungs are clear to auscultation with good movement of air bilaterally. Abdomen soft nontender. exam is unremarkable. Rectal exam is remarkable for hemorrhoids and fecal impaction. Unable to palpate the prostate. Attempted rectal exam causes him significant discomfort. Neuro exam is nonfocal Test Results: CBC is essentially unremarkable. Basic metabolic panel reveals elevated BUN and creatinine at 25 1.59 and glucose of 152. Will need to compare to prior. UA is consistent with infection positive leukoesterase nitrites blood pyuria and bacteria. Since she has had a recent urinary tract infection culture was sent. He received first dose of Bactrim DS in the department. Emergency Department Course and Treatment: In light of patient's history blood work was obtained as well as UA. After performing rectal exam and determine if patient has fecal impaction causing his pain light of the chest was instilled into the rectum for anesthesia. He was unable to retain and difficulty because of the amount of stool. Patient was digitally disimpacted by me. There was significant amount of stool. After rectum was disimpacted prostate exam was performed and is normal. He reports he is still unable to urinate. Bladder scan was performed. Treatment Plan: Discharge to home with appropriate home-going instruction and 7 day course of Bactrim DS Disposition: Discharged home in stable improved condition Impression: 1. UTI 2. Fecal impaction 3. End-stage renal disease 4. End-stage COPD on oxygen 5. History of ischemic cardiomyopathy This note was generated with nothingGrinder dictation software. It may contain incorrect words, spelling, and punctuation that were not noted in review of the chart prior to signing ED Disposition - Plan for ED Patient: Disposition: Home or Assisted Living Chief Complaint: Complaint Instructions: ED UTI Cystitis Male, ED Impaction Fecal Treated Prescriptions: Smz/Tmp Ds [Bactrim Ds] 1 tab PO BID #14 tab Referrals: Charly Benz MD [Primary Care Provider] - 3-5 Days if not improving
[2018-03-06 11:12] LABS: Color, Urine Yellow (Yellow); Glucose, Dipstick Normal (Normal); Ketone-Dipstick Negative (Negative); Leukocyte Esterase-Dipstick 500 /ul (Negative); Nitrite-Dipstick Positive (Negative); Occult Blood-Urine 150 /ul (Negative); Protein-Dipstick 30 mg/dl (Negative); Specific Gravity, Urine 1.015 (1.002-1.030); Urine Bilirubin Dipstick Negative (Negative); Urine Clarity Cloudy (Clear); Urine Urobilinogen Normal (Normal)
[2018-03-06 11:17] LABS: White Blood Cells >100 SEEN /hpf (0-5)
[2018-03-06 11:22] LABS: Bacteria 4+ /hpf (None Seen); Mucous, Urine 1+ /hpf (<or=2+); Red Blood Cells-Urine 0-5 SEEN /hpf (0-5); Squamous Epithelial Cells - UA 0-5 SEEN /hpf (0-5)
[2018-03-06 11:30] VITALS: BP 139/83; PULSE 90; RESP 20; O2SAT 96
[2018-03-06] MEDS: Lidocaine Jelly 2% 20 ML Syringe (URO-JET) 20 APPLIC TOPICAL (11:30)
[2018-03-06 11:40] VITALS: BP 139/83; PULSE 91; RESP 24; O2SAT 95
[2018-03-06] MEDS: Smz/Tmp Ds Tablet 1 TABLET PO (11:43)
== END 2018-03-06 12:38 | disposition home or self-care (01) ==
PROVIDERS: Emergency Provider Emergency Medicine; Family Provider Family Medicine; PCP Family Medicine
DX: N39.0 Urinary tract infection, site not specified (principal); K56.41 Fecal impaction; N18.6 End stage renal disease; R33.9 Retention of urine, unspecified; K64.9 Unspecified hemorrhoids; I25.10 Atherosclerotic heart disease of native coronary artery without angina pectoris; I25.5 Ischemic cardiomyopathy; J44.9 Chronic obstructive pulmonary disease, unspecified; M06.9 Rheumatoid arthritis, unspecified; R03.0 Elevated blood-pressure reading, without diagnosis of hypertension; I73.9 Peripheral vascular disease, unspecified; F32.9 Major depressive disorder, single episode, unspecified; Z72.0 Tobacco use; Z79.899 Other long term (current) drug therapy
CPT/HCPCS: 51702; 80048; 81001; 85025; 87086; 87088; 99285

== ENCOUNTER 2018-03-06 21:03 | Inpatient (IN) | payer MEDICARE, BC, SELFPAY ==
[2018-03-06 21:03] VITALS: BP 138/94; PULSE 111; RESP 16; TEMP 36.6; O2SAT 95; BMI 18.3
[2018-03-06] MEDS: Ipratropium/Albuterol Sulfate 3 ML AMPUL.NEB INHALATION (22:28)
[2018-03-06 22:30] VITALS: PULSE 108; RESP 22
--- NOTE | 2018-03-06 22:30 | ED.DCSUM_ITS ---
- ER Visit Summary Date of Service: 03/06/18 Chief Complaint: Vomiting, abdominal pain History of Present Illness: The patient is a 72 M he was seen in the ER this morning with constipation and urinary retention. He was disimpacted in the ED. Leija catheter was placed. He states he had 3 bowel movements after returning home. Patient was diagnosed with prostatitis 2 days ago. His urine looked infected today and he was started on Bactrim. Patient states after returning home he developed upper abdominal pain along with nausea and vomiting. Past history significant for CHF, COPD, high cholesterol, chronic kidney disease , rheumatoid arthritis, ischemic cardiomyopathy. Physical Examination: Blood pressure is 138/94, temperature 97.9, heart rate 111 , respiratory rate 16, pulse ox 95% on room air. Patient is a cachectic appearing elderly gentleman. He is in no acute distress. Head neck examination grossly unremarkable. Heart is slightly tachycardic. Lung sounds with mild expiratory wheezes throughout. Abdomen is soft with epigastric tenderness. No guarding or rebound. Hypoactive bowel sounds noted throughout. Test Results: CBC tonight reveal a white count 11.5 with 89% neutrophils. White count has bumped slightly when compared to this morning's labs. Chemistry studies reveal BUN 24 and creatinine 1.63. LFTs and lipase normal. Lactate is normal. The urinalysis earlier today showed greater than 100 white cells with 4+ bacteria. Urine culture is currently pending. Acute abdominal series was obtained. Per my impression there appears to be an ileus. Normal read is still pending. Emergency Department Course and Treatment: Patient was given IV fluids, fentanyl , Zofran, and a DuoNeb treatment. On repeat evaluation he is resting much more comfortably. He will be given a dose of IV Rocephin and admitted. Treatment Plan: [] Disposition: Admit Impression: 1. Cystitis 2. Vomiting, improved 3. Ileus This note was generated with [employer] dictation software. It may contain incorrect words, spelling, and punctuation that were not noted in review of the chart prior to signing ED Disposition - Plan for ED Patient: Chief Complaint: Nausea/Vomiting Referrals: Charly Benz MD [Primary Care Provider] -
[2018-03-06] MEDS: 0.9% Normal Saline 1,000 ML 150 ML IV (22:32)
[2018-03-06 22:33] LABS: Absolute Lymphocyte Count 1.12 X10^3/ul (0.83-4.51); Absolute Neutrophil Count 10.3 X10^3/uL (2.0-7.7); Basophil# 0.04 X10^3/uL; Basophil% 0.3 % (0-1); Eosinophil# 0.02 X10^3/uL; Eosinophils% 0.2 % (0-5); Hematocrit 43.2 % (40-54); Hemoglobin 14.5 g/dl (13.0-16.5); Lymphocyte # 1.12 X10^3/ul (4.0); Lymphocyte % 9.7 % (19-41); Mean Corp Hgb Conc 33.6 g/gl (32-36); Mean Corpuscular Hgb 32.6 pg (27.0-32.0); Mean Corpuscular Volume 97.1 fL (80-94); Mean Platelet Vol. 10.5 fl (6.2-12.0); Monocyte# 0.05 X10^3/uL; Monocyte% 0.4 % (0-10); Neutrophil # 10.25 X10^3/uL (2.7-7.7); Neutrophil % 89.3 % (47-70); POSITIVE COUNT NO; POSITIVE DIFFERENTIAL NO; POSITIVE MORPHOLOGY NO; Platelet Count 269 K/mm3 (150-450); RBC Distribution Width CV 13.6 % (11.6-14.6); RBC Distribution Width SD 48.5 fl (35.1-43.9); Red Blood Count 4.45 M/mm3 (4.6-6.2); White Blood Count 11.5 K/mm3 (4.4-11.0)
[2018-03-06] MEDS: fentaNYL 100 MCG/2 ML Ampul 25 MCG IV (22:33)
[2018-03-06] MEDS: Ondansetron 4 MG/2 ML Vial IV (22:33)
--- NOTE | 2018-03-06 22:45 | RAD_ITS ---
STUDY: X-RAY - ACUTE ABDOMINAL SERIES REASON FOR EXAM: Male, 72 years old. Abdominal pain TECHNIQUE: Single view of the chest. Supine, and erect view(s) of the abdomen were obtained. COMPARISON: None. FINDINGS: The lungs are clear and expanded. Normal size heart. Normal mediastinum and anitha. Normal visualized pulmonary arteries. Normal visualized aortic arch and descending thoracic aorta. Multiple distended loops of small bowel are noted with air-fluid levels. There is a stent in the right lower quadrant. Normal visualized osseous structures. RAD/Acute Abdomen Inc Chest IMPRESSION: Probable small bowel obstruction.. Recommend CT abdomen and pelvis. Electronically Signed: Boom Campos MD at 23:45 EDT , Service support ,
[2018-03-06 22:46] LABS: AST(SGOT) 22 U/L (15-37); Alanine Aminotransfer ALT/SGPT 23 U/L (16-61); Albumin, Serum 3.6 g/dL (3.2-5.0); Alkaline Phosphatase 129 U/L (45-117); Anion Gap 9 (5-15); BUN 24 mg/dL (7-18); BUN/Creat Ratio 14.7 RATIO (10-20); Bilirubin, Direct 0.22 mg/dL (0.00-0.30); Calcium,Total 9.9 mg/dL (8.5-10.1); Chloride 103 mmol/L (98-107); Creatinine, Serum 1.63 mg/dL (0.70-1.30); EST Glomerular Filtration Rate 44 mL/min (>60); Est Glom Filt Rate - Afr Amer 54 mL/min (>60); Estimated Creatinine Clearance 28.48 ml/min; Globulin 4.2 g/dL (2.2-4.2); Glucose 134 mg/dL (74-106); Lipase 57 U/L (73-393); Potassium 4.1 mmol/L (3.5-5.1); Protein, Total 7.8 g/dL (6.4-8.2); Sodium Level 141 mmol/L (136-145)
[2018-03-06 22:48] LABS: Lactic Acid 1.5 mmol/L (0.4-2.0)
[2018-03-06 23:12] VITALS: BP 140/81; PULSE 102; RESP 19; O2SAT 93
[2018-03-06] MEDS: Ceftriaxone 1 GM/50 ML BAG IV (23:51)
[2018-03-06 23:52] VITALS: BP 139/76; PULSE 101; RESP 17; O2SAT 93
[2018-03-07] VITALS (13 sets, daily range): BP systolic 140–174; BP diastolic 82–99; PULSE 82–103; RESP 16–20; TEMP 36.8–37.3; O2SAT 89–96; BMI 18.3; BMI 18.6
--- NOTE | 2018-03-07 00:39 | PCM.HP.STD ---
Problem List (1) Prostatitis, acute Status: Acute (2) Depression Status: Chronic (3) COPD (chronic obstructive pulmonary disease) Status: Chronic (4) CÉSAR (acute kidney injury) Status: Chronic (5) Abdominal pain Status: Acute History of Present Illness Date of Admission: 03/06/18 Chief Complaint: abdominal pain; nausea and vomitting The patient is a 72 year old M with a significant history of rheumatoid arthritis; Shingles; CKD stage 4; COPD; ischemic cardiomyopathy; pulmonary hypertension and CKD who presents with severe lower abdominal pain; nausea and vomiting after drinking soup. Back pain radiates to his back. His back pain improved with pain medication administered at emergency department. His daughter reports that patient's vomits with every food intake. Patient was diagnosed with prostatitis by his urologist within this week. He was prescribed double strength Bactrim but to the first dose on the day of admission. This is patient's second visit in the same day. On the first visit he had rectal pain and constipation and he was disimpacted. Also on the face visit because he had a urinary retention and a Leija catheter was placed and was asked to follow up with his urologist Dr. Juan Manuel Tian in 3 days time. His current symptoms of abdominal pain nausea and vomited started today (day of admission) after his bowel disimpaction. Urinalysis obtained on the first ED visit was positive for nitrites; Leukocyte esterase; WBC and bacteria At emergency department patient had on him a bottle filled with Bactrim DS that he was supposed to take for prostatitis Abdominal pain, nausea and vomiting Likely related to his acute prostatitis Official reading of acute abdominal series showed probable small bowel obstruction and CT of abdomen and pelvis was recommended. Independent review of acute abdominal series showed distended loops of bowel. CT abdomen and pelvis with oral contrast ordered. IV contrast not used because of CKD. NPO Normal saline IV infusion. Acute prostatitis Since patient is unable to tolerate p.o. Bactrim IV ordered. Supportive treatment with oxycodone pain medication and antiemetics. Trend CBC and BMP. Tobacco abuse Smoke cigarettes Counseled Nicotine patch ordered. COPD Stable Home breathing treatments continued Rheumatoid arthritis Plaquenil continued. Prednisone continued. Family reported that the patient is on prednisone taper 2 mg for 2 weeks; and 1 mg for 4 weeks. CKD stage 4 Creatinine 1.63; baseline Trend BMP. 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) Atherosclerotic heart disease of [place] coronary artery without angina pectoris (Chronic) Nondominant right coronary artery with total proximal occlusion Main coronary artery with 30% distal stenosis Left anterior descending artery with mild diffuse disease Ostial circumflex artery with 80% stenosis in a dominant vessel per [facility] 09/04/2013 Nonrheumatic tricuspid (valve) insufficiency (Chronic) Hyperlipidemia (Chronic) Depression (Chronic) COPD (chronic obstructive pulmonary disease) (Chronic) 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) 25% EF 09/06global diskinesia CKD (chronic kidney disease) stage 3, GFR 30-59 ml/min (Chronic) PVD (peripheral vascular disease) (Chronic) total occlusion of stents in iliacs, per cath 09/06 CÉSAR (acute kidney injury) (Chronic) Medical History: Medical History (Last Reviewed 03/07/18 @ 01:05 by Bonilla Denise MD) Ischemic cardiomyopathy (Chronic) I25.5 Atherosclerotic heart disease of [place] coronary artery without angina pectoris (Chronic) I25.10 Nondominant right coronary artery with total proximal occlusion Main coronary artery with 30% distal stenosis Left anterior descending artery with mild diffuse disease Ostial circumflex artery with 80% stenosis in a dominant vessel per [facility] 09/04/2013 Nonrheumatic tricuspid (valve) insufficiency (Chronic) I36.1 Hyperlipidemia (Chronic) E78.5 Depression (Chronic) F32.9 COPD (chronic obstructive pulmonary disease) (Chronic) J44.9 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) I50.41 25% EF /14global diskinesia CKD (chronic kidney disease) stage 3, GFR 30-59 ml/min (Chronic) PVD (peripheral vascular disease) (Chronic) I73.9 total occlusion of stents in iliacs, per cath 09/06 Allergies morphine Adverse Reaction (Verified 03/06/18 22:06) Nausea Home Medications: Ambulatory Orders Medication Instructions Recorded Multivit-Min/FA/Lycopene/Lut 1 ea PO DAILY 08/31/13 [Centrum Silver Tablet] Paroxetine HCl [Paxil] 20 mg PO DAILY 08/31/13 Atorvastatin Calcium [Lipitor] 80 mg PO QHS #30 tab 09/04/13 Carvedilol [Coreg (Beta Gely)] 6.25 mg PO BID #60 tab 09/04/13 Albuterol Inhaler [Ventolin Hfa] 1 puff INHALATION Q4H PRN PRN 10/03/16 Beclomethasone Diprop Inhaler 1 puff INHALATION BID 10/03/16 [Qvar 80 Mcg Inhaler] prednisone 5 mg tablet 2 mg PO DAILY 06/25/17 Albuterol Aerosols [Ventolin 2.5 mg INHALATION 4X/DAY 09/11/17 Aerosols] Hydroxychloroquine [Plaquenil] 200 mg PO QODAY 09/11/17 Hydroxychloroquine [Plaquenil] 300 mg PO QODAY 09/11/17 Omeprazole [Prilosec] 40 mg PO BID 09/11/17 Tamsulosin HCl [Flomax] 0.4 mg PO DAILY@1730 #30 cap 01/17/18 Smz/Tmp Ds [Bactrim Ds] 1 tab PO BID #14 tab 03/06/18 Surgical History: Surgical History (Last Reviewed 03/07/18 @ 01:05 by Bonilla Denise MD) History of right and left heart catheterization Z98.890 09/02/2016 right, with attempted left; 09/04/16 left heart cath per Dr. Sotelo [facility] Surgical History: adenoidectomy, appendectomy, tonsillectomy, - - Aortic aneurysm repair, left inguinal hernia repair, hemorrhoidectomy Psychiatric History: Depression Smoking Status: Current every day smoker - smokes cigarette Alcohol: Occasional - *Family History Offspring Family History: Family History (Last Reviewed 03/07/18 @ 01:06 by Bonilla Denise MD) Father CAD (coronary artery disease) History Items: No pertinent history Maternal Family History: Family History (Last Reviewed 03/07/18 @ 01:06 by Bonilla Denise MD) Father CAD (coronary artery disease) History Items: No pertinent history Paternal Family History: Family History (Last Reviewed 03/07/18 @ 01:06 by Bonilla Denise MD) Father CAD (coronary artery disease) History Items: No pertinent history Sibling Family History: Family History (Last Reviewed 03/07/18 @ 01:06 by Bonilla Denise MD) Father CAD (coronary artery disease) History Items: No pertinent history Review of Systems Constitutional: Denies: Chills, Fever, Weight Change Eyes: Denies: Blurred vision, Pain HEENT: Denies: Head Aches, Sinus Congestion, Sinus Drainage Cardiovascular: Denies: Chest Pain, Palpitations Respiratory: Denies: Cough, Shortness of breath at rest, Sputum production Gastrointestinal: Reports: Abdominal Pain, Nausea, Vomiting Genitourinary: Reports: Retention Musculoskeletal: Denies: Joint Pain, Joint Tenderness Skin: Denies: Rash, Wounds Neurological: Denies: Numbness, Tingling, Focal weakness Psychiatric: Denies: Anxiety, Depression, Homicidal Ideations, Suicidal Ideations Hematologic/ Lymphatic: Denies: Easy Bruising, Easy Bleeding VTE Information - Inpt Only VTE Present on Admission: No VTE Mechan Device Prophylaxis: None VTE Pharm Prophylaxis ordered?: Yes Patient Problems: Active and Suspected Problems (Last Reviewed 03/07/18 @ 01:05 by Bonilla Denise MD) Prostatitis, acute (Acute) Abdominal pain (Acute) - Physical Exam General: Alert, Oriented x3, Cooperative HEENT: Atraumatic, PERRLA, EOMI, Normocephalic Neck: Supple, No JVD, Negative Carotid Bruits Lungs: Wheezes Cardiovascular: Regular Rhythm, Normal S1, Normal S2, Tachycardic Abdomen: Non Tender, - - Bowel sounds not present Extremities: No edema, Capillary Refill Less than 3 Seconds Skin: No rashes, No breakdown Musculoskeletal: No Tenderness to Palpation of Joints or Extremities Lymphatic: No Cervical, Supraclavicular, or Inguinal Adenopathy Neurological: Cranial nerves II-XII grossly intact Psych/Mental Status: Normal Affect, Appropriate Vital Signs Temp Pulse Resp BP Pulse Ox 97.9 F 101 H 17 139/76 H 93 03/06/18 21:03 03/06/18 23:52 03/06/18 23:52 03/06/18 23:52 03/06/18 23:52 Oxygen Delivery Method Room Air Assessment/Plan All Active Problems (Last Reviewed 03/07/18 @ 01:05 by Bonilla Denise MD) Prostatitis, acute (Acute) Abdominal pain (Acute) Suicidal ideation (Resolved) The patient is a 72 year old M with a significant history of rheumatoid arthritis; Shingles; CKD stage 4; COPD; ischemic cardiomyopathy; pulmonary hypertension and CKD who presents with severe lower abdominal pain; nausea and vomiting after drinking soup; and also with recently diagnosed prostatitis; abnormal urinalysis and radiographic evidence of probable small bowel obstruction. Abdominal pain, nausea and vomiting Likely related to his acute prostatitis Official reading of acute abdominal series showed probable small bowel obstruction and CT of abdomen and pelvis was recommended. Independent review of acute abdominal series showed distended loops of bowel. CT abdomen and pelvis with oral contrast ordered. IV contrast not used because of CKD. NPO Normal saline IV infusion. Acute prostatitis Since patient is unable to tolerate p.o. Bactrim IV ordered. Supportive treatment with oxycodone pain medication and antiemetics. Trend CBC and BMP. Tobacco abuse Smoke cigarettes Counseled Nicotine patch ordered. COPD Stable Home breathing treatments continued Rheumatoid arthritis Plaquenil continued. Prednisone continued. Family reported that the patient is on prednisone taper 2 mg for 2 weeks; and 1 mg for 4 weeks. CKD stage 4 Creatinine 1.63; baseline Trend BMP. DVT prophylaxis with subcutaneous heparin Code Visit Inpatient E&M: 68226 Init Hosp L3
--- NOTE | 2018-03-07 01:16 | CT_ITS ---
STUDY: CT ABDOMEN AND PELVIS WITHOUT CONTRAST REASON FOR EXAM: Male, 72 years old. Lower abdominal pain. RADIATION DOSAGE (If Supplied By Facility): CTDIvol = ( 6.04 ) mGy, DLP = ( 265.75 ) mGycm TECHNIQUE: Transaxial images were obtained from the dome of the diaphragm to the symphysis pubis without oral contrast, and without intravenous contrast. Sagittal and coronal images were reconstructed. Individualized dose optimization techniques were used for this CT. COMPARISON: Comparison is made with prior study dated October 01, 2016. FINDINGS: Mild degree of increased linear markings with areas of confluence at the right lung base suggestive of a scarring with possible superimposed atelectasis. This has progressed as compared to prior study. Coronary artery calcification. Normal liver. Small amount of perihepatic fluid. Low-level density are seen within the gallbladder lumen. This may represent either cholelithiasis or sludge. There are multiple benign calcified granulomata of the spleen. Normal pancreas. Normal bilateral adrenal glands. Normal right kidney. Nonobstructive 4 mm calculus in the midpole calyx of the left kidney. Normal visualized stomach. There are dilated loops of the small intestine with a non-distended colon consistent with a small bowel obstruction. Normal colon. The patient is status post appendectomy. There is diffuse atherosclerotic calcification of the abdominal aorta and the major visceral branches, without a demonstrated aneurysm. The patient is status post aortic biiliac bypass. The [place] aorta and iliac arteries are densely calcified. Normal inferior vena cava. Normal retroperitoneum. A Leija catheter is seen within the urinary bladder. The urinary bladder is empty. Small amount of free fluid is seen in the pelvis. There is a left-sided inguinal hernia containing adipose tissue. Disc space narrowing and degeneration at the L5-S1 level. Stable mild degree of loss of height of the superior endplate of the T12 vertebrae. CT/Abdomen/Pel W ORAL Cont Only IMPRESSION: Findings in keeping with a small bowel obstruction. Small amount of fluid is seen in the cul-de-sac. Electronically Signed: Chandu Patel MD at 12:48 EDT Tel [phone], Service support ,
[2018-03-07] MEDS: 0.9% Normal Saline 1,000 ML 100 ML IV (02:05)
[2018-03-07] MEDS: oxyCODONE 5 MG Tablet PO (03:45)
[2018-03-07] MEDS: Albuterol 2.5 MG/3 ML VIAL.NEB. INHALATION ×4 (06:00→18:46)
[2018-03-07] MEDS: Budesonide Respules 0.5 MG/2 ML AMPUL.NEB. INHALATION ×2 (06:10→18:47)
[2018-03-07 06:35] LABS: Absolute Lymphocyte Count 0.68 X10^3/ul (0.83-4.51); Basophil# 0.05 X10^3/uL; Basophil% 0.5 % (0-1); Eosinophil# 0.06 X10^3/uL; Eosinophils% 0.6 % (0-5); Hematocrit 39.1 % (40-54); Hemoglobin 12.9 g/dl (13.0-16.5); Lymphocyte # 0.68 X10^3/ul (4.0); Mean Corpuscular Hgb 32.3 pg (27.0-32.0); Mean Corpuscular Volume 97.8 fL (80-94); Mean Platelet Vol. 10.1 fl (6.2-12.0); Monocyte# 0.86 X10^3/uL; Monocyte% 8.9 % (0-10); Neutrophil # 8.03 X10^3/uL (2.7-7.7); Neutrophil % 82.8 % (47-70); Platelet Count 247 K/mm3 (150-450); RBC Distribution Width CV 13.4 % (11.6-14.6); RBC Distribution Width SD 46.8 fl (35.1-43.9); White Blood Count 9.7 K/mm3 (4.4-11.0)
[2018-03-07 06:40] LABS: POSITIVE COUNT NO; POSITIVE DIFFERENTIAL NO; POSITIVE MORPHOLOGY NO
[2018-03-07] MEDS: Ondansetron 4 MG/2 ML Vial IV ×2 (06:42→14:52)
[2018-03-07] MEDS: LORazepam 2 MG/ML Syringe 1 MG IV (06:42)
[2018-03-07] MEDS: 0.9% NaCl Peripheral Flush Adult/Peds IV ×3 (06:43→14:52)
[2018-03-07 06:45] LABS: Anion Gap 11 (5-15); BUN 21 mg/dL (7-18); Calcium,Total 8.9 mg/dL (8.5-10.1); Chloride 106 mmol/L (98-107); EST Glomerular Filtration Rate 49 mL/min (>60); Est Glom Filt Rate - Afr Amer 59 mL/min (>60); Estimated Creatinine Clearance 31.39 ml/min; Glucose 117 mg/dL (74-106); Potassium 3.7 mmol/L (3.5-5.1); Sodium Level 144 mmol/L (136-145)
[2018-03-07] MEDS: Heparin Injection (Vial) 5,000 UNIT/ML VIAL 5000 UNIT SC ×3 (06:45→21:20)
--- NOTE | 2018-03-07 08:05 | NURSING ---
Addendum entered by Catalina Myers 03/07/18 08:09: CT staff notified that pt. did not drink about 80cc of contrast as it emptied on floor Original Note: upon entering pt's room at 0715- pt had fallen asleep and spilled some of contrast from his cup on floor. Assisted with clean up. pt finished drinking CT contrast at 0730- CT called and notified by this RN. Notified that patient will have CT at 0930. Sylvester notified on MS3 and same written on board.
--- NOTE | 2018-03-07 08:30 | PCM.PN.HOSP ---
Patient Problems: Active and Suspected Problems (Last Reviewed 03/07/18 @ 01:05 by Bonilla Denise MD) Prostatitis, acute (Acute) Abdominal pain (Acute) Subjective: The patient is a 72 year old M with a significant history including COPD; ischemic cardiomyopathy; pulmonary hypertension and CKD who presented with severe lower abdominal pain; an assessment acute prostatitis made admitted to regular nursing floor for further management Objective: GENERAL:Seen appears ill looking HEENT: Clear conjunctiva, NECK; supple, normal thyroid, CHEST: Clear to auscultation bilaterally, HEART: Regular S1 S2, ABDOMEN: Non Distended, epigastric tenderness RECTAL: deferred EXTREMITIES: No edema, no clubbing, no cyanosis. 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 SKIN: No Rash Vitals/I&O's: Vital Signs Temp Pulse Resp BP Pulse Ox 98.3 F 99 18 160/82 H 92 03/07/18 07:43 03/07/18 07:43 03/07/18 07:43 03/07/18 07:43 03/07/18 07:57 Oxygen Flow Rate (L/min) 1 Oxygen Delivery Method Nasal Cannula Weight: 50.6 kg Body Mass Index (BMI) 18.6 Intake and Output for Last 24 Hours 03/05/18 03/06/18 03/07/18 23:59 23:59 23:59 Intake Total 1462 / 1462 Output Total 450 / 450 Balance 1012 / 1012 Laboratory Results 03/07/18 06:14: WBC 9.7, RBC 4.00 L, Hgb 12.9 L, Hct 39.1 L, MCV 97.8 H, MCH 32.3 H, MCHC 33.0, RDW 13.4, RDW Differential 46.8 H, Plt Count 247, MPV 10.1, Immature Gran % (Auto) 0.200, Neut % (Auto) 82.8 H, Lymph % (Auto) 7.0 L, [place] % (Auto) 8.9, Eos % (Auto) 0.6, Baso % (Auto) 0.5, Absolute Neuts (auto) 8.0 H, Absolute Lymphs (auto) 0.68 L, Total Counted Not Reportable 03/07/18 06:14: Sodium 144, Potassium 3.7, Chloride 106, Carbon Dioxide 27.0, Anion Gap 11, BUN 21 H, Creatinine 1.50 H, Estim Creat Clear Calc 31.39, Est GFR (MDRD) Af Amer 59 L, Est GFR (MDRD) Non-Af 49 L, BUN/Creatinine Ratio 14.0, Glucose 117 H, Calcium 8.9 Current Medications Acetaminophen (Tylenol) 650 mg PO Q6H PRN PRN PRN Reason: Mild Pain (1-3)/Temp > 100.7 F Albuterol Sulfate (Ventolin Aerosols) 2.5 mg INHALATION 4X/DAY.RT [facility] Last Admin: 03/07/18 06:00 Dose: 2.5 mg Albuterol Sulfate (Ventolin Aerosols) 2.5 mg INHALATION Q4H PRN PRN PRN Reason: wheezing Atorvastatin Calcium (Lipitor) 80 mg PO QHS [facility] Bisacodyl (Dulcolax) 5 mg PO DAILY PRN PRN PRN Reason: Constipation Budesonide (Pulmicort Aerosol) 0.5 mg INHALATION BID.RT [facility] Last Admin: 03/07/18 06:10 Dose: 0.5 mg Carvedilol (Coreg) 6.25 mg PO BID [facility] Heparin Sodium (Porcine) (Heparin Na) 5,000 unit SC Q8 [facility] Last Admin: 03/07/18 06:45 Dose: 5,000 unit Hydroxychloroquine Sulfate (Plaquenil) 200 mg PO MoWeFr@0800 JOYCE Hydroxychloroquine Sulfate (Plaquenil) 300 mg PO SuTuThSa@0800 [facility] Sodium Chloride () 1,000 mls @ 100 mls/hr IV .Q10H [facility] Stop: 03/07/18 11:15 Last Admin: 03/07/18 02:05 Dose: 100 mls/hr Trimethoprim/Sulfamethoxazole (160 mg/ Dextrose) 260 mls @ 175 mls/hr IV Q12 [facility] Last Admin: 03/07/18 02:40 Dose: 175 mls/hr Magnesium Hydroxide (Milk Of Magnesia) 30 ml PO DAILY PRN PRN PRN Reason: Constipation Nicotine (Nicoderm Cq (Pbkc)) 21 mg TRANSDERM. DAILY [facility] Last Admin: 03/07/18 02:04 Dose: 21 mg Ondansetron HCl (Zofran) 4 mg IV Q6H PRN PRN PRN Reason: NAUSEA/VOMITING Last Admin: 03/07/18 06:42 Dose: 4 mg Oxycodone HCl (Oxyir) 5 - 10 mg PO Q4H PRN PRN PRN Reason: MOD-SEVERE PAIN (4-10/10) Last Admin: 03/07/18 03:45 Dose: 10 mg Pantoprazole Sodium (Protonix) 40 mg PO BID [facility] Paroxetine HCl (Paxil) 20 mg PO DAILY [facility] Prednisone () 2 mg PO DAILYCM [facility] Sodium Chloride () 5 - 30 ml IV UD PRN PRN Reason: SALINE FLUSH Last Admin: 03/07/18 06:43 Dose: 10 ml Tamsulosin HCl (Flomax) 0.4 mg PO DAILY@1730 [facility] Zolpidem Tartrate (Ambien (Generic)) 5 mg PO QHS PRN PRN PRN Reason: INSOMNIA Medical Necessity - Tobacco Use Smoking Status: Current every day smoker - smokes cigarette Assessment/Plan All Active Problems (Last Reviewed 03/07/18 @ 01:05 by Bonilla Denise MD) Prostatitis, acute (Acute) Abdominal pain (Acute) Suicidal ideation (Resolved) The patient is a 72 year old M with a significant history including COPD; ischemic cardiomyopathy; pulmonary hypertension and CKD who presented with severe lower abdominal pain; an assessment acute prostatitis made admitted to regular nursing floor for further management 1. Acute prostatitis patient did fail outpatient treatment admitted to regular nursing floor was initially started on Bactrim which has been switched to IV Rocephin 2. Partial small bowel obstruction as demonstrated on patient CAT scan patient conservatively with bowel rest, pain meds as well as antinausea medication with serial imaging studies ordered 3. Chronic systolic heart failure 9Ischemic cardiomyopathy with an ejection fraction of 25%) currently compensated 4. rheumatoid arthritis; is on Plaquenil did continue 5. Hypertension-blood pressure controlled, home medications continued with dose adjustment as needed 6. Dyslipidemia-patient is on statin therapy, continued at home dose 7. COPD without exacerbation did continue with home regimen 8. Coronary artery disease 9. Peripheral vascular disease with previous stents in his iliacs 10. BPH 11. Pulmonary hypertension Active Medications Acetaminophen (Tylenol) 650 mg PO Q6H PRN PRN PRN Reason: Mild Pain (1-3)/Temp > 100.7 F Albuterol Sulfate (Ventolin Aerosols) 2.5 mg INHALATION 4X/DAY.RT [facility] Last Admin: 03/07/18 06:00 Dose: 2.5 mg Albuterol Sulfate (Ventolin Aerosols) 2.5 mg INHALATION Q4H PRN PRN PRN Reason: wheezing Atorvastatin Calcium (Lipitor) 80 mg PO QHS [facility] Bisacodyl (Dulcolax) 5 mg PO DAILY PRN PRN PRN Reason: Constipation Budesonide (Pulmicort Aerosol) 0.5 mg INHALATION BID.RT [facility] Last Admin: 03/07/18 06:10 Dose: 0.5 mg Carvedilol (Coreg) 6.25 mg PO BID [facility] Heparin Sodium (Porcine) (Heparin Na) 5,000 unit SC Q8 [facility] Last Admin: 03/07/18 06:45 Dose: 5,000 unit Hydroxychloroquine Sulfate (Plaquenil) 200 mg PO MoWeFr@0800 [facility] Hydroxychloroquine Sulfate (Plaquenil) 300 mg PO SuTuThSa@0800 [facility] Sodium Chloride () 1,000 mls @ 100 mls/hr IV .Q10H [facility] Stop: 03/07/18 11:15 Last Admin: 03/07/18 02:05 Dose: 100 mls/hr Trimethoprim/Sulfamethoxazole (160 mg/ Dextrose) 260 mls @ 175 mls/hr IV Q12 [facility] Last Admin: 03/07/18 02:40 Dose: 175 mls/hr Magnesium Hydroxide (Milk Of Magnesia) 30 ml PO DAILY PRN PRN PRN Reason: Constipation Nicotine (Nicoderm Cq (Pbkc)) 21 mg TRANSDERM. DAILY [facility] Last Admin: 03/07/18 02:04 Dose: 21 mg Ondansetron HCl (Zofran) 4 mg IV Q6H PRN PRN PRN Reason: NAUSEA/VOMITING Last Admin: 03/07/18 06:42 Dose: 4 mg Oxycodone HCl (Oxyir) 5 - 10 mg PO Q4H PRN PRN PRN Reason: MOD-SEVERE PAIN (4-10/10) Last Admin: 03/07/18 03:45 Dose: 10 mg Pantoprazole Sodium (Protonix) 40 mg PO BID [facility] Paroxetine HCl (Paxil) 20 mg PO DAILY [facility] Prednisone () 2 mg PO DAILYCM [facility] Sodium Chloride () 5 - 30 ml IV UD PRN PRN Reason: SALINE FLUSH Last Admin: 03/07/18 06:43 Dose: 10 ml Tamsulosin HCl (Flomax) 0.4 mg PO DAILY@1730 [facility] Zolpidem Tartrate (Ambien (Generic)) 5 mg PO QHS PRN PRN PRN Reason: INSOMNIA Clinical Impression(s) from Imaging Studies Acute Abdomen Series 03/06/18 22:45 IMPRESSION: Probable small bowel obstruction.. Recommend CT abdomen and pelvis. Electronically Signed: Boom Campos MD at 23:45 EDT , Service support , Code Visit Inpatient E&M: 18386 Subs Hosp L3
--- NOTE | 2018-03-07 09:29 | NURSING ---
pt saline locked- taken off of unit for ct scan.
--- NOTE | 2018-03-07 10:00 | CASEMGMT ---
LINDA OLIVA Face to Face with patient for initial transition planning/care coordination assessment. LINDA OLIVA introduced self and role at [facility]. Patient becki willoughby bed, alert and oriented. Patient willing to participate in assessment and is able to answer all questions appropriately. Care providers, pharmacy, and demographics verified. See link attached. Patient wishes to discharge home, denies need for home health at this time. Patient states he has no further needs or concerns at this time. CM to follow for discharge planning needs that may arise. Disposition Plan: Patient to discharge home with family support and follow-up plans in place. Will continue to monitor for need for HHC Giselle CLARK, RN, CM
--- NOTE | 2018-03-07 11:13 | NURSING ---
Addendum entered by Catalina Myers 03/07/18 12:23: peggy Renner's phone number: [phone] Original Note: Returned call to peggy Renner after speaking with pt to ensure giving medical information regarding his care was ok with him. Pt verbalized that any information may be given to peggy Renner. Notified of CT scan this morning and waiting on results. Jud states she is pulling into parking lot now.
[2018-03-07] MEDS: proMETHazine 25 MG/ML Syringe 12.5 MG IV (11:41)
--- NOTE | 2018-03-07 17:40 | RAD_ITS ---
STUDY: X-RAY - ABDOMEN/PELVIS REASON FOR EXAM: Male, 72 years old. Small bowel obstruction and NG placement TECHNIQUE: Single AP view of the abdomen / pelvis. COMPARISON: March 06, 2018 FINDINGS: Normal visualized lung bases. Multiple distended gas-filled loops of small bowel. Enteric tube in the stomach. Sidehole is near the GE junction. The visualized liver, spleen and kidneys are grossly normal in size and morphology. Surgical clips right lower quadrant and endovascular stent. Normal soft tissue structures. Normal visualized osseous structures. RAD/Abdomen Single View IMPRESSION: Small bowel obstruction versus ileus unchanged. NG tube in the stomach but sidehole is near the GE junction. Recommend advancing 5 to 10 cm. Electronically Signed: Boom Campos MD at 18:53 EDT , Service support ,
[2018-03-08] VITALS (7 sets, daily range): BP systolic 131–145; BP diastolic 85–92; PULSE 85–103; RESP 16–20; TEMP 37.2–37.4; O2SAT 92–96
[2018-03-08] MEDS: Heparin Injection (Vial) 5,000 UNIT/ML VIAL 5000 UNIT SC ×3 (06:01→21:24)
[2018-03-08 06:25] LABS: Hematocrit 40.2 % (40-54); Hemoglobin 13.6 g/dl (13.0-16.5); Mean Corp Hgb Conc 33.8 g/gl (32-36); Mean Corpuscular Hgb 32.9 pg (27.0-32.0); Mean Corpuscular Volume 97.3 fL (80-94); Platelet Count 224 K/mm3 (150-450); RBC Distribution Width CV 13.6 % (11.6-14.6); RBC Distribution Width SD 47.1 fl (35.1-43.9); Red Blood Count 4.13 M/mm3 (4.6-6.2); White Blood Count 10.9 K/mm3 (4.4-11.0)
[2018-03-08 06:28] LABS: Anion Gap 8 (5-15); BUN 13 mg/dL (7-18); BUN/Creat Ratio 9.2 RATIO (10-20); Calcium,Total 8.6 mg/dL (8.5-10.1); Chloride 107 mmol/L (98-107); Creatinine, Serum 1.41 mg/dL (0.70-1.30); EST Glomerular Filtration Rate 52 mL/min (>60); Est Glom Filt Rate - Afr Amer 63 mL/min (>60); Estimated Creatinine Clearance 33.39 ml/min; Glucose 124 mg/dL (74-106); Magnesium 1.9 mg/dL (1.6-2.6); Potassium 3.8 mmol/L (3.5-5.1); Sodium Level 140 mmol/L (136-145)
[2018-03-08 06:29] LABS: Scan Indicated on CBC? Y/N NO
[2018-03-08] MEDS: Budesonide Respules 0.5 MG/2 ML AMPUL.NEB. INHALATION (06:31)
[2018-03-08] MEDS: Albuterol 2.5 MG/3 ML VIAL.NEB. INHALATION ×3 (06:31→22:43)
--- NOTE | 2018-03-08 09:13 | PCM.PN.HOSP ---
Patient Problems: Active and Suspected Problems (Last Reviewed 03/07/18 @ 01:05 by Bonilla Denise MD) Prostatitis, acute (Acute) Abdominal pain (Acute) Subjective: Imaging studies obtained the day prior demonstrates the presence of small bowel obstruction. An NG tube was placed with copious amounts of secretions. Consultation was placed to general surgery due to persistence of patient bowel obstruction; patient seen this a.m. complains of sore throat Objective: GENERAL:Seen appears ill looking HEENT: Clear conjunctiva, NECK; supple, normal thyroid, CHEST: Clear to auscultation bilaterally, HEART: Regular S1 S2, ABDOMEN: Non Distended, epigastric tenderness RECTAL: deferred EXTREMITIES: No edema, no clubbing, no cyanosis. 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 SKIN: No Rash Vitals/I&O's: Vital Signs Temp Pulse Resp BP Pulse Ox 99.4 F H 88 20 H 137/92 H 96 03/08/18 04:04 03/08/18 06:31 03/08/18 06:31 03/08/18 04:04 03/08/18 06:31 Oxygen Flow Rate (L/min) 2 Oxygen Delivery Method Room Air Weight: 50.6 kg Intake and Output for Last 24 Hours 03/06/18 03/07/18 03/08/18 23:59 23:59 23:59 Intake Total 997 / 2459 1569 / 1569 Output Total 1250 / 1700 1650 / 1650 Balance -253 / 759 -81 / -81 Laboratory Results 03/08/18 05:25: WBC 10.9, RBC 4.13 L, Hgb 13.6, Hct 40.2, MCV 97.3 H, MCH 32.9 H, MCHC 33.8, RDW 13.6, RDW Differential 47.1 H, Plt Count 224, MPV 11.0 03/08/18 05:25: Sodium 140, Potassium 3.8, Chloride 107, Carbon Dioxide 25.0, Anion Gap 8, BUN 13, Creatinine 1.41 H, Estim Creat Clear Calc 33.39, Est GFR (MDRD) Af Amer 63, Est GFR (MDRD) Non-Af 52 L, BUN/Creatinine Ratio 9.2 L, Glucose 124 H, Calcium 8.6, Magnesium 1.9 Current Medications Acetaminophen (Tylenol) 650 mg PO Q6H PRN PRN PRN Reason: Mild Pain (1-3)/Temp > 100.7 F Albuterol Sulfate (Ventolin Aerosols) 2.5 mg INHALATION 4X/DAY.RT [facility] Last Admin: 03/08/18 06:31 Dose: 2.5 mg Albuterol Sulfate (Ventolin Aerosols) 2.5 mg INHALATION Q4H PRN PRN PRN Reason: wheezing Atorvastatin Calcium (Lipitor) 80 mg PO QHS [facility] Last Admin: 03/07/18 21:22 Dose: Not Given Bisacodyl (Dulcolax) 5 mg PO DAILY PRN PRN PRN Reason: Constipation Budesonide (Pulmicort Aerosol) 0.5 mg INHALATION BID.RT [facility] Last Admin: 03/08/18 06:31 Dose: 0.5 mg Carvedilol (Coreg) 6.25 mg PO BID [facility] Last Admin: 03/07/18 21:22 Dose: Not Given Heparin Sodium (Porcine) (Heparin Na) 5,000 unit SC Q8 [facility] Last Admin: 03/08/18 06:01 Dose: 5,000 unit Hydroxychloroquine Sulfate (Plaquenil) 200 mg PO MoWeFr@0800 [facility] Last Admin: 03/07/18 14:54 Dose: Not Given Hydroxychloroquine Sulfate (Plaquenil) 300 mg PO SuTuThSa@0800 [facility] Last Admin: 03/08/18 08:10 Dose: Not Given Ceftriaxone Sodium 2 gm/ (Sodium Chloride) 50 mls @ 100 mls/hr IV Q24 [facility] Last Admin: 03/07/18 10:03 Dose: 100 mls/hr Potassium Chloride/Dextrose/Sod Cl (Kcl 20meq In D5.45ns 1000ml) 1,000 mls @ 125 mls/hr IV .Q8H [facility] Last Admin: 03/08/18 08:11 Dose: 125 mls/hr Magnesium Hydroxide (Milk Of Magnesia) 30 ml PO DAILY PRN PRN PRN Reason: Constipation Nicotine (Nicoderm Cq (Pbkc)) 21 mg TRANSDERM. DAILY [facility] Last Admin: 03/07/18 02:04 Dose: 21 mg Nutritional Formula (Lactose Free) (Ensure Clear) 120 ml PO 4X/DAY [facility] Ondansetron HCl (Zofran) 4 mg IV Q6H PRN PRN PRN Reason: NAUSEA/VOMITING Last Admin: 03/07/18 14:52 Dose: 4 mg Oxycodone HCl (Oxyir) 5 - 10 mg PO Q4H PRN PRN PRN Reason: MOD-SEVERE PAIN (4-10/10) Last Admin: 03/07/18 03:45 Dose: 10 mg Pantoprazole Sodium (Protonix) 40 mg PO BID [facility] Last Admin: 03/07/18 21:22 Dose: Not Given Paroxetine HCl (Paxil) 20 mg PO DAILY [facility] Last Admin: 03/07/18 14:54 Dose: Not Given Prednisone () 2 mg PO DAILYCM [facility] Last Admin: 03/08/18 08:10 Dose: Not Given Promethazine HCl (Phenergan) 12.5 mg IV Q6H PRN PRN PRN Reason: NAUSEA/VOMITING Last Admin: 03/07/18 11:41 Dose: 12.5 mg Sodium Chloride () 5 - 30 ml IV UD PRN PRN Reason: SALINE FLUSH Last Admin: 03/07/18 14:52 Dose: 10 ml Tamsulosin HCl (Flomax) 0.4 mg PO DAILY@1730 [facility] Last Admin: 03/07/18 17:15 Dose: Not Given Zolpidem Tartrate (Ambien (Generic)) 5 mg PO QHS PRN PRN PRN Reason: INSOMNIA Medical Necessity - Tobacco Use Smoking Status: Current every day smoker Assessment/Plan All Active Problems (Last Reviewed 03/07/18 @ 01:05 by Bonilla Denise MD) Prostatitis, acute (Acute) Abdominal pain (Acute) Suicidal ideation (Resolved) The patient is a 72 year old M with a significant history including COPD; ischemic cardiomyopathy; pulmonary hypertension and CKD who presented with severe lower abdominal pain; an assessment acute prostatitis made admitted to regular nursing floor for further management 1. Acute prostatitis repeat cultures drawn so far positive for E. coli (please refer to previous visit to review microbiology) patient did fail outpatient treatment admitted to regular nursing floor was initially started on Bactrim which has been switched to IV Rocephin 2. Amall bowel obstruction as demonstrated on patient CAT scan patient conservatively with bowel rest, pain meds as well as antinausea medication with serial imaging studies ordered subsequent imaging studies demonstrated presence of small bowel obstruction. An NG tube was placed with copious amount of NG secretions. Consultation was placed to Dr. Nathan with general surgery on 03/08/2018 3. Chronic systolic heart failure 9schemic cardiomyopathy with an ejection fraction of 25%) currently compensated 4. Rheumatoid arthritis; is on Plaquenil did continue 5. Hypertension-blood pressure controlled, home medications continued with dose adjustment as needed 6. Dyslipidemia-patient is on statin therapy, continued at home dose 7. COPD without exacerbation did continue with home regimen 8. Coronary artery disease 9. Peripheral vascular disease with previous stents in his iliacs 10. BPH 11. Pulmonary hypertension Clinical Impression(s) from Imaging Studies Acute Abdomen Series 03/06/18 22:45 IMPRESSION: Probable small bowel obstruction.. Recommend CT abdomen and pelvis. Electronically Signed: Boom Campos MD at 23:45 EDT , Service support , Abdomen CT 03/07/18 01:16 IMPRESSION: Findings in keeping with a small bowel obstruction. Small amount of fluid is seen in the cul-de-sac. Electronically Signed: Chandu Patel MD at 12:48 EDT Tel [phone], Service support , KUB X-Ray 03/07/18 17:40 IMPRESSION: Small bowel obstruction versus ileus unchanged. NG tube in the stomach but sidehole is near the GE junction. Recommend advancing 5 to 10 cm. Electronically Signed: Boom Campos MD at 18:53 EDT , Service support , Code Visit Inpatient E&M: 00122 Subs Hosp L3
--- NOTE | 2018-03-08 09:17 | PN_ITS ---
Patient Problems: Active and Suspected Problems (Last Reviewed 03/07/18 @ 01:05 by Bonilla Denise MD) Prostatitis, acute (Acute) Abdominal pain (Acute) Subjective: Imaging studies obtained the day prior demonstrates the presence of small bowel obstruction. An NG tube was placed with copious amounts of secretions. Consultation was placed to general surgery due to persistence of patient bowel obstruction; patient seen this a.m. complains of sore throat Objective: GENERAL:Seen appears ill looking HEENT: Clear conjunctiva, NECK; supple, normal thyroid, CHEST: Clear to auscultation bilaterally, HEART: Regular S1 S2, ABDOMEN: Non Distended, epigastric tenderness RECTAL: deferred EXTREMITIES: No edema, no clubbing, no cyanosis. 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 SKIN: No Rash Vitals/I&O's: Vital Signs Temp Pulse Resp BP Pulse Ox 99.4 F H 88 20 H 137/92 H 96 03/08/18 04:04 03/08/18 06:31 03/08/18 06:31 03/08/18 04:04 03/08/18 06:31 Oxygen Flow Rate (L/min) 2 Oxygen Delivery Method Room Air Weight: 50.6 kg Intake and Output for Last 24 Hours 03/06/18 03/07/18 03/08/18 23:59 23:59 23:59 Intake Total 997 / 2459 1569 / 1569 Output Total 1250 / 1700 1650 / 1650 Balance -253 / 759 -81 / -81 Laboratory Results 03/08/18 05:25: WBC 10.9, RBC 4.13 L, Hgb 13.6, Hct 40.2, MCV 97.3 H, MCH 32.9 H , MCHC 33.8, RDW 13.6, RDW Differential 47.1 H, Plt Count 224, MPV 11.0 03/08/18 05:25: Sodium 140, Potassium 3.8, Chloride 107, Carbon Dioxide 25.0, Anion Gap 8, BUN 13, Creatinine 1.41 H, Estim Creat Clear Calc 33.39, Est GFR ( MDRD) Af Amer 63, Est GFR (MDRD) Non-Af 52 L, BUN/Creatinine Ratio 9.2 L, Glucose 124 H, Calcium 8.6, Magnesium 1.9 Current Medications Acetaminophen (Tylenol) 650 mg PO Q6H PRN PRN PRN Reason: Mild Pain (1-3)/Temp > 100.7 F Albuterol Sulfate (Ventolin Aerosols) 2.5 mg INHALATION 4X/DAY.RT [facility] Last Admin: 03/08/18 06:31 Dose: 2.5 mg Albuterol Sulfate (Ventolin Aerosols) 2.5 mg INHALATION Q4H PRN PRN PRN Reason: wheezing Atorvastatin Calcium (Lipitor) 80 mg PO QHS [facility] Last Admin: 03/07/18 21:22 Dose: Not Given Bisacodyl (Dulcolax) 5 mg PO DAILY PRN PRN PRN Reason: Constipation Budesonide (Pulmicort Aerosol) 0.5 mg INHALATION BID.RT [facility] Last Admin: 03/08/18 06:31 Dose: 0.5 mg Carvedilol (Coreg) 6.25 mg PO BID [facility] Last Admin: 03/07/18 21:22 Dose: Not Given Heparin Sodium (Porcine) (Heparin Na) 5,000 unit SC Q8 [facility] Last Admin: 03/08/18 06:01 Dose: 5,000 unit Hydroxychloroquine Sulfate (Plaquenil) 200 mg PO MoWeFr@0800 [facility] Last Admin: 03/07/18 14:54 Dose: Not Given Hydroxychloroquine Sulfate (Plaquenil) 300 mg PO SuTuThSa@0800 [facility] Last Admin: 03/08/18 08:10 Dose: Not Given Ceftriaxone Sodium 2 gm/ (Sodium Chloride) 50 mls @ 100 mls/hr IV Q24 [facility] Last Admin: 03/07/18 10:03 Dose: 100 mls/hr Potassium Chloride/Dextrose/Sod Cl (Kcl 20meq In D5.45ns 1000ml) 1,000 mls @ 125 mls/hr IV .Q8H [facility] Last Admin: 03/08/18 08:11 Dose: 125 mls/hr Magnesium Hydroxide (Milk Of Magnesia) 30 ml PO DAILY PRN PRN PRN Reason: Constipation Nicotine (Nicoderm Cq (Pbkc)) 21 mg TRANSDERM. DAILY [facility] Last Admin: 03/07/18 02:04 Dose: 21 mg Nutritional Formula (Lactose Free) (Ensure Clear) 120 ml PO 4X/DAY [facility] Ondansetron HCl (Zofran) 4 mg IV Q6H PRN PRN PRN Reason: NAUSEA/VOMITING Last Admin: 03/07/18 14:52 Dose: 4 mg Oxycodone HCl (Oxyir) 5 - 10 mg PO Q4H PRN PRN PRN Reason: MOD-SEVERE PAIN (4-10/10) Last Admin: 03/07/18 03:45 Dose: 10 mg Pantoprazole Sodium (Protonix) 40 mg PO BID [facility] Last Admin: 03/07/18 21:22 Dose: Not Given Paroxetine HCl (Paxil) 20 mg PO DAILY [facility] Last Admin: 03/07/18 14:54 Dose: Not Given Prednisone () 2 mg PO DAILYCM [facility] Last Admin: 03/08/18 08:10 Dose: Not Given Promethazine HCl (Phenergan) 12.5 mg IV Q6H PRN PRN PRN Reason: NAUSEA/VOMITING Last Admin: 03/07/18 11:41 Dose: 12.5 mg Sodium Chloride () 5 - 30 ml IV UD PRN PRN Reason: SALINE FLUSH Last Admin: 03/07/18 14:52 Dose: 10 ml Tamsulosin HCl (Flomax) 0.4 mg PO DAILY@1730 [facility] Last Admin: 03/07/18 17:15 Dose: Not Given Zolpidem Tartrate (Ambien (Generic)) 5 mg PO QHS PRN PRN PRN Reason: INSOMNIA Medical Necessity - Tobacco Use Smoking Status: Current every day smoker Assessment/Plan All Active Problems (Last Reviewed 03/07/18 @ 01:05 by Bonilla Denise MD) Prostatitis, acute (Acute) Abdominal pain (Acute) Suicidal ideation (Resolved) The patient is a 72 year old M with a significant history including COPD; ischemic cardiomyopathy; pulmonary hypertension and CKD who presented with severe lower abdominal pain; an assessment acute prostatitis made admitted to regular nursing floor for further management 1. Acute prostatitis repeat cultures drawn so far positive for E. coli (please refer to previous visit to review microbiology) patient did fail outpatient treatment admitted to regular nursing floor was initially started on Bactrim which has been switched to IV Rocephin 2. Amall bowel obstruction as demonstrated on patient CAT scan patient conservatively with bowel rest, pain meds as well as antinausea medication with serial imaging studies ordered subsequent imaging studies demonstrated presence of small bowel obstruction. An NG tube was placed with copious amount of NG secretions. Consultation was placed to Dr. Nathan with general surgery on 3. Chronic systolic heart failure 9schemic cardiomyopathy with an ejection fraction of 25%) currently compensated 4. Rheumatoid arthritis; is on Plaquenil did continue 5. Hypertension-blood pressure controlled, home medications continued with dose adjustment as needed 6. Dyslipidemia-patient is on statin therapy, continued at home dose 7. COPD without exacerbation did continue with home regimen 8. Coronary artery disease 9. Peripheral vascular disease with previous stents in his iliacs 10. BPH 11. Pulmonary hypertension Clinical Impression(s) from Imaging Studies Acute Abdomen Series 03/06/18 22:45 IMPRESSION: Probable small bowel obstruction.. Recommend CT abdomen and pelvis. Electronically Signed: Boom Campos MD at 23:45 EDT , Service support , Abdomen CT 03/07/18 01:16 IMPRESSION: Findings in keeping with a small bowel obstruction. Small amount of fluid is seen in the cul-de-sac. Electronically Signed: Chandu Patel MD at 12:48 EDT Tel [phone], Service support , KUB X-Ray 03/07/18 17:40 IMPRESSION: Small bowel obstruction versus ileus unchanged. NG tube in the stomach but sidehole is near the GE junction. Recommend advancing 5 to 10 cm. Electronically Signed: Boom Campos MD at 18:53 EDT , Service support , Code Visit Inpatient E&M: 79455 Subs Hosp L3
[2018-03-08] MEDS: BENZOCAINE/MENTHOL 1 LOZENGE MUCOUS MEM (11:09)
--- NOTE | 2018-03-08 12:48 | PCM.CONS.GEN ---
Problem List (1) Ileus Status: Acute Reason for Consult Date of Consultation: 03/08/18 Reason for Consultation: Nausea and vomiting History of Present Illness: The patient is a 72 year old M who presented with abdominal pain as well as nausea and vomiting. The patient had a CT scan yesterday which showed dilated small bowel in the patient had an NG tube in with copious discharge. The patient says that his abdominal pain has been relieved since the placement of the NG tube. He was having bowel movements up until admission. He says that he is not passing any flatus at this moment. He did have a bowel obstruction last year that was very similar and resolved without surgery. 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) Atherosclerotic heart disease of [place] coronary artery without angina pectoris (Chronic) Nondominant right coronary artery with total proximal occlusion Main coronary artery with 30% distal stenosis Left anterior descending artery with mild diffuse disease Ostial circumflex artery with 80% stenosis in a dominant vessel per [facility] 09/04/2013 Nonrheumatic tricuspid (valve) insufficiency (Chronic) Hyperlipidemia (Chronic) Depression (Chronic) COPD (chronic obstructive pulmonary disease) (Chronic) 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) 25% EF 09/06global diskinesia CKD (chronic kidney disease) stage 3, GFR 30-59 ml/min (Chronic) PVD (peripheral vascular disease) (Chronic) total occlusion of stents in iliacs, per cath 09/06 CÉSAR (acute kidney injury) (Chronic) Medical History: Medical History (Last Reviewed 03/07/18 @ 01:05 by Bonilla Denise MD) Ischemic cardiomyopathy (Chronic) I25.5 Atherosclerotic heart disease of [place] coronary artery without angina pectoris (Chronic) I25.10 Nondominant right coronary artery with total proximal occlusion Main coronary artery with 30% distal stenosis Left anterior descending artery with mild diffuse disease Ostial circumflex artery with 80% stenosis in a dominant vessel per [facility] 09/04/2013 Nonrheumatic tricuspid (valve) insufficiency (Chronic) I36.1 Hyperlipidemia (Chronic) E78.5 Depression (Chronic) F32.9 COPD (chronic obstructive pulmonary disease) (Chronic) J44.9 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) I50.41 25% EF 09/06global diskinesia CKD (chronic kidney disease) stage 3, GFR 30-59 ml/min (Chronic) PVD (peripheral vascular disease) (Chronic) I73.9 total occlusion of stents in iliacs, per cath 09/06 Allergies morphine Adverse Reaction (Verified 03/06/18 22:06) Nausea Home Medications: Ambulatory Orders Medication Instructions Recorded Multivit-Min/FA/Lycopene/Lut 1 ea PO DAILY 08/31/13 [Centrum Silver Tablet] Paroxetine HCl [Paxil] 20 mg PO DAILY 08/31/13 Atorvastatin Calcium [Lipitor] 80 mg PO QHS #30 tab 09/04/13 Carvedilol [Coreg (Beta Gely)] 6.25 mg PO BID #60 tab 09/04/13 Albuterol Inhaler [Ventolin Hfa] 1 puff INHALATION Q4H PRN PRN 10/03/16 Beclomethasone Diprop Inhaler 1 puff INHALATION BID 10/03/16 [Qvar 80 Mcg Inhaler] prednisone 5 mg tablet 2 mg PO DAILY 06/25/17 Albuterol Aerosols [Ventolin 2.5 mg INHALATION 4X/DAY 09/11/17 Aerosols] Hydroxychloroquine [Plaquenil] 200 mg PO QODAY 09/11/17 Hydroxychloroquine [Plaquenil] 300 mg PO QODAY 09/11/17 Omeprazole [Prilosec] 40 mg PO BID 09/11/17 Tamsulosin HCl [Flomax] 0.4 mg PO DAILY@1730 #30 cap 01/17/18 Smz/Tmp Ds [Bactrim Ds] 1 tab PO BID #14 tab 03/06/18 Surgical History: Surgical History (Last Reviewed 03/07/18 @ 01:05 by Bonilla Denise MD) History of right and left heart catheterization Z98.890 09/02/2016 right, with attempted left; 09/04/16 left heart cath per Dr. Sotelo [facility] Surgical History: adenoidectomy, appendectomy, tonsillectomy, - - Aortic aneurysm repair, left inguinal hernia repair, hemorrhoidectomy Psychiatric History: Depression Smoking Status: Current every day smoker Alcohol: Occasional - *Family History Offspring Family History: Family History (Last Reviewed 03/07/18 @ 01:06 by Bonilla Denise MD) Father CAD (coronary artery disease) History Items: No pertinent history Maternal Family History: Family History (Last Reviewed 03/07/18 @ 01:06 by Bonilla Denise MD) Father CAD (coronary artery disease) History Items: No pertinent history Paternal Family History: Family History (Last Reviewed 03/07/18 @ 01:06 by Bonilla Denise MD) Father CAD (coronary artery disease) History Items: No pertinent history Sibling Family History: Family History (Last Reviewed 03/07/18 @ 01:06 by Bonilla Denise MD) Father CAD (coronary artery disease) History Items: No pertinent history Review of Systems Constitutional: Denies: Anorexia, Chills HEENT: Denies: Difficulty Swallowing Cardiovascular: Denies: Chest Pain Respiratory: Denies: Cough, Shortness of Breath Gastrointestinal: Reports: Abdominal Pain, Constipation, Nausea, Vomiting Genitourinary: Reports: - - Patient has Leija in for prostatitis Musculoskeletal: Denies: Joint Tenderness Skin: Denies: Dryness Neurological: Denies: Balance problems Psychiatric: Denies: Anxiety Hematologic/ Lymphatic: Denies: Anemia Patient Problems: Active and Suspected Problems (Last Reviewed 03/07/18 @ 01:05 by Bonilla Denise MD) Prostatitis, acute (Acute) Abdominal pain (Acute) Ileus (Acute) - Physical Exam General: Alert, Oriented x3, Cooperative, No apparent distress HEENT: Atraumatic, PERRLA, EOMI, Normocephalic Oral: Moist Mucosa Neck: Supple Lungs: Normal air movement Cardiovascular: Regular rate, Regular Rhythm Abdomen: Soft, Non Tender, Non-Distended Extremities: No clubbing Skin: No rashes Musculoskeletal: No Tenderness to Palpation of Joints or Extremities Neurological: Cranial nerves II-XII grossly intact Psych/Mental Status: Normal Affect, Appropriate Vital Signs Temp Pulse Resp BP Pulse Ox 99.4 F H 85 20 H 144/85 H 92 03/08/18 10:04 03/08/18 10:40 03/08/18 10:40 03/08/18 10:04 03/08/18 10:04 Oxygen Flow Rate (L/min) 2 Oxygen Delivery Method Room Air Weight: 111 lb 8.862 oz Intake and Output for Last 24 Hours 03/06/18 03/07/18 03/08/18 23:59 23:59 23:59 Intake Total 997 / 2459 1569 / 1569 Output Total 1250 / 1700 1650 / 1650 Balance -253 / 759 -81 / -81 Laboratory Tests Past 24 Hrs 03/08/18 03/08/18 03/08/18 05:25 05:25 05:25 WBC 10.9 RBC 4.13 L Hgb 13.6 Hct 40.2 MCV 97.3 H MCH 32.9 H MCHC 33.8 RDW 13.6 RDW Differential 47.1 H Plt Count 224 MPV 11.0 Sodium 140 Potassium 3.8 Chloride 107 Carbon Dioxide 25.0 Anion Gap 8 BUN 13 Creatinine 1.41 H Estim Creat Clear Calc 33.39 Est GFR (MDRD) Af Amer 63 Est GFR (MDRD) Non-Af 52 L BUN/Creatinine Ratio 9.2 L Glucose 124 H Calcium 8.6 Phosphorus 3.0 Magnesium 1.9 Cancelled Clinical Impression(s) from Imaging Studies KUB X-Ray 03/07/18 17:40 IMPRESSION: Small bowel obstruction versus ileus unchanged. NG tube in the stomach but sidehole is near the GE junction. Recommend advancing 5 to 10 cm. Electronically Signed: Boom Campos MD at 18:53 EDT , Service support , Assessment/Plan All Active Problems (Last Reviewed 03/07/18 @ 01:05 by Bonilla Denise MD) Prostatitis, acute (Acute) Abdominal pain (Acute) Ileus (Acute) Suicidal ideation (Resolved) 72-year-old male with ileus 1. The patient had a CT scan which shows dilated loops of bowel. I have unable to make out gas in the transverse colon on the study. The patient reports that his pain is dissipated once he had an NG tube placed. The NG tube is bilious with copious output. 2. At this time I believe the patient has an ileus due to his prostatitis and infection. I recommend continuing antibiotics and NG decompression until the patient begins to pass flatus. I do not believe the patient has small bowel obstruction at this time but either way I would recommend conservative treatment at this time as the patient's vitals are stable and his abdominal exam is benign. 3. Continue NG and IV fluids until patient is passing flatus. Patient had resolution of bowel obstruction 1 year ago with conservative management. Tom Nathan MD Pager: [facility] [address] [place] [address], [address] [place] [address] Office:
--- NOTE | 2018-03-08 12:52 | CON.PCM_ITS ---
Problem List (1) Ileus Status: Acute Reason for Consult Date of Consultation: 03/08/18 Reason for Consultation: Nausea and vomiting History of Present Illness: The patient is a 72 year old M who presented with abdominal pain as well as nausea and vomiting. The patient had a CT scan yesterday which showed dilated small bowel in the patient had an NG tube in with copious discharge. The patient says that his abdominal pain has been relieved since the placement of the NG tube. He was having bowel movements up until admission. He says that he is not passing any flatus at this moment. He did have a bowel obstruction last year that was very similar and resolved without surgery. 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) Atherosclerotic heart disease of [place] coronary artery without angina pectoris (Chronic) Nondominant right coronary artery with total proximal occlusion Main coronary artery with 30% distal stenosis Left anterior descending artery with mild diffuse disease Ostial circumflex artery with 80% stenosis in a dominant vessel per [facility] 2013 Nonrheumatic tricuspid (valve) insufficiency (Chronic) Hyperlipidemia (Chronic) Depression (Chronic) COPD (chronic obstructive pulmonary disease) (Chronic) 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) 25% EF 09/06global diskinesia CKD (chronic kidney disease) stage 3, GFR 30-59 ml/min (Chronic) PVD (peripheral vascular disease) (Chronic) total occlusion of stents in iliacs, per cath 09/06 CÉSAR (acute kidney injury) (Chronic) Medical History: Medical History (Last Reviewed 03/07/18 @ 01:05 by Bonilla Denise MD) Ischemic cardiomyopathy (Chronic) I25.5 Atherosclerotic heart disease of [place] coronary artery without angina pectoris (Chronic) I25.10 Nondominant right coronary artery with total proximal occlusion Main coronary artery with 30% distal stenosis Left anterior descending artery with mild diffuse disease Ostial circumflex artery with 80% stenosis in a dominant vessel per [facility] 2013 Nonrheumatic tricuspid (valve) insufficiency (Chronic) I36.1 Hyperlipidemia (Chronic) E78.5 Depression (Chronic) F32.9 COPD (chronic obstructive pulmonary disease) (Chronic) J44.9 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) I50.41 25% EF 09/06global diskinesia CKD (chronic kidney disease) stage 3, GFR 30-59 ml/min (Chronic) PVD (peripheral vascular disease) (Chronic) I73.9 total occlusion of stents in iliacs, per cath 09/06 Allergies morphine Adverse Reaction (Verified 03/06/18 22:06) Nausea Home Medications: Ambulatory Orders Medication Instructions Recorded Multivit-Min/FA/Lycopene/Lut 1 ea PO DAILY 08/31/13 [Centrum Silver Tablet] Paroxetine HCl [Paxil] 20 mg PO DAILY 08/31/13 Atorvastatin Calcium [Lipitor] 80 mg PO QHS #30 tab 09/04/13 Carvedilol [Coreg (Beta Gely)] 6.25 mg PO BID #60 tab 09/04/13 Albuterol Inhaler [Ventolin Hfa] 1 puff INHALATION Q4H PRN PRN 10/03/16 Beclomethasone Diprop Inhaler 1 puff INHALATION BID 10/03/16 [Qvar 80 Mcg Inhaler] prednisone 5 mg tablet 2 mg PO DAILY 06/25/17 Albuterol Aerosols [Ventolin 2.5 mg INHALATION 4X/DAY 09/11/17 Aerosols] Hydroxychloroquine [Plaquenil] 200 mg PO QODAY 09/11/17 Hydroxychloroquine [Plaquenil] 300 mg PO QODAY 09/11/17 Omeprazole [Prilosec] 40 mg PO BID 09/11/17 Tamsulosin HCl [Flomax] 0.4 mg PO DAILY@1730 #30 cap 01/17/18 Smz/Tmp Ds [Bactrim Ds] 1 tab PO BID #14 tab 03/06/18 Surgical History: Surgical History (Last Reviewed 03/07/18 @ 01:05 by Bonilla Denise MD) History of right and left heart catheterization Z98.890 09/02/2016 right, with attempted left; 09/04/16 left heart cath per Dr. Sotelo [facility] Surgical History: adenoidectomy, appendectomy, tonsillectomy, - - Aortic aneurysm repair, left inguinal hernia repair, hemorrhoidectomy Psychiatric History: Depression Smoking Status: Current every day smoker Alcohol: Occasional - *Family History Offspring Family History: Family History (Last Reviewed 03/07/18 @ 01:06 by Bonilla Denise MD) Father CAD (coronary artery disease) History Items: No pertinent history Maternal Family History: Family History (Last Reviewed 03/07/18 @ 01:06 by Bonilla Denise MD) Father CAD (coronary artery disease) History Items: No pertinent history Paternal Family History: Family History (Last Reviewed 03/07/18 @ 01:06 by Bonilla Denise MD) Father CAD (coronary artery disease) History Items: No pertinent history Sibling Family History: Family History (Last Reviewed 03/07/18 @ 01:06 by Bonilla Denise MD) Father CAD (coronary artery disease) History Items: No pertinent history Review of Systems Constitutional: Denies: Anorexia, Chills HEENT: Denies: Difficulty Swallowing Cardiovascular: Denies: Chest Pain Respiratory: Denies: Cough, Shortness of Breath Gastrointestinal: Reports: Abdominal Pain, Constipation, Nausea, Vomiting Genitourinary: Reports: - - Patient has Leija in for prostatitis Musculoskeletal: Denies: Joint Tenderness Skin: Denies: Dryness Neurological: Denies: Balance problems Psychiatric: Denies: Anxiety Hematologic/ Lymphatic: Denies: Anemia Patient Problems: Active and Suspected Problems (Last Reviewed 03/07/18 @ 01:05 by Bonilla Denise MD) Prostatitis, acute (Acute) Abdominal pain (Acute) Ileus (Acute) - Physical Exam General: Alert, Oriented x3, Cooperative, No apparent distress HEENT: Atraumatic, PERRLA, EOMI, Normocephalic Oral: Moist Mucosa Neck: Supple Lungs: Normal air movement Cardiovascular: Regular rate, Regular Rhythm Abdomen: Soft, Non Tender, Non-Distended Extremities: No clubbing Skin: No rashes Musculoskeletal: No Tenderness to Palpation of Joints or Extremities Neurological: Cranial nerves II-XII grossly intact Psych/Mental Status: Normal Affect, Appropriate Vital Signs Temp Pulse Resp BP Pulse Ox 99.4 F H 85 20 H 144/85 H 92 03/08/18 10:04 03/08/18 10:40 03/08/18 10:40 03/08/18 10:04 03/08/18 10:04 Oxygen Flow Rate (L/min) 2 Oxygen Delivery Method Room Air Weight: 111 lb 8.862 oz Intake and Output for Last 24 Hours 03/06/18 03/07/18 03/08/18 23:59 23:59 23:59 Intake Total 997 / 2459 1569 / 1569 Output Total 1250 / 1700 1650 / 1650 Balance -253 / 759 -81 / -81 Laboratory Tests Past 24 Hrs 03/08/18 03/08/18 03/08/18 05:25 05:25 05:25 WBC 10.9 RBC 4.13 L Hgb 13.6 Hct 40.2 MCV 97.3 H MCH 32.9 H MCHC 33.8 RDW 13.6 RDW Differential 47.1 H Plt Count 224 MPV 11.0 Sodium 140 Potassium 3.8 Chloride 107 Carbon Dioxide 25.0 Anion Gap 8 BUN 13 Creatinine 1.41 H Estim Creat Clear Calc 33.39 Est GFR (MDRD) Af Amer 63 Est GFR (MDRD) Non-Af 52 L BUN/Creatinine Ratio 9.2 L Glucose 124 H Calcium 8.6 Phosphorus 3.0 Magnesium 1.9 Cancelled Clinical Impression(s) from Imaging Studies KUB X-Ray 03/07/18 17:40 IMPRESSION: Small bowel obstruction versus ileus unchanged. NG tube in the stomach but sidehole is near the GE junction. Recommend advancing 5 to 10 cm. Electronically Signed: Boom Campos MD at 18:53 EDT , Service support , Assessment/Plan All Active Problems (Last Reviewed 03/07/18 @ 01:05 by Bonilla Denise MD) Prostatitis, acute (Acute) Abdominal pain (Acute) Ileus (Acute) Suicidal ideation (Resolved) 72-year-old male with ileus 1. The patient had a CT scan which shows dilated loops of bowel. I have unable to make out gas in the transverse colon on the study. The patient reports that his pain is dissipated once he had an NG tube placed. The NG tube is bilious with copious output. 2. At this time I believe the patient has an ileus due to his prostatitis and infection. I recommend continuing antibiotics and NG decompression until the patient begins to pass flatus. I do not believe the patient has small bowel obstruction at this time but either way I would recommend conservative treatment at this time as the patient's vitals are stable and his abdominal exam is benign. 3. Continue NG and IV fluids until patient is passing flatus. Patient had resolution of bowel obstruction 1 year ago with conservative management. Tom Nathan MD Pager: [facility] [address] [place] [address], [address] [place] [address] Office:
[2018-03-08] MEDS: Ondansetron 4 MG/2 ML Vial IV (14:55)
[2018-03-08] MEDS: HYDROmorphone 1 MG/ML Syringe IV (18:35)
[2018-03-09] VITALS (15 sets, daily range): BP systolic 133–155; BP diastolic 73–89; PULSE 70–89; RESP 16–26; TEMP 36.6–37.2; O2SAT 86–98
[2018-03-09] MEDS: HYDROmorphone 1 MG/ML Syringe IV ×3 (03:22→14:14)
[2018-03-09 06:12] LABS: Hematocrit 33.7 % (40-54); Hemoglobin 11.3 g/dl (13.0-16.5); Mean Corp Hgb Conc 33.5 g/gl (32-36); Mean Corpuscular Volume 98.5 fL (80-94); Mean Platelet Vol. 10.2 fl (6.2-12.0); Platelet Count 177 K/mm3 (150-450); RBC Distribution Width CV 13.6 % (11.6-14.6); RBC Distribution Width SD 47.3 fl (35.1-43.9); Red Blood Count 3.42 M/mm3 (4.6-6.2); White Blood Count 7.1 K/mm3 (4.4-11.0)
[2018-03-09] MEDS: Heparin Injection (Vial) 5,000 UNIT/ML VIAL 5000 UNIT SC ×3 (06:13→22:01)
[2018-03-09 06:27] LABS: Anion Gap 5 (5-15); BUN 8 mg/dL (7-18); BUN/Creat Ratio 6.8 RATIO (10-20); Chloride 107 mmol/L (98-107); Creatinine, Serum 1.18 mg/dL (0.70-1.30); EST Glomerular Filtration Rate 64 mL/min (>60); Est Glom Filt Rate - Afr Amer 78 mL/min (>60); Glucose 118 mg/dL (74-106); Sodium Level 138 mmol/L (136-145)
[2018-03-09 06:28] LABS: Scan Indicated on CBC? Y/N NO
[2018-03-09] MEDS: Budesonide Respules 0.5 MG/2 ML AMPUL.NEB. INHALATION ×2 (07:48→19:34)
[2018-03-09] MEDS: Albuterol 2.5 MG/3 ML VIAL.NEB. INHALATION ×2 (07:48→13:01)
[2018-03-09] MEDS: 0.9% NaCl Peripheral Flush Adult/Peds IV ×3 (07:57→14:14)
[2018-03-09] MEDS: Hydroxychloroquine 200 MG Tablet PO (09:16)
[2018-03-09] MEDS: Carvedilol 6.25 MG Tablet PO ×2 (09:17→22:01)
[2018-03-09] MEDS: predniSONE 1 MG Tablet 2 MG PO (09:17)
[2018-03-09] MEDS: Pantoprazole Sodium 40 MG Tablet PO ×2 (09:18→22:01)
--- NOTE | 2018-03-09 09:40 | NURSING ---
NG tube flushed wth 50mL of NS per orders. placement checked prior to flushing via air auscultation and aspiration. Pt tolerated well.
--- NOTE | 2018-03-09 11:46 | PCM.PN.HOSP ---
Patient Problems: Active and Suspected Problems (Last Reviewed 03/07/18 @ 01:05 by Bonilla Denise MD) Prostatitis, acute (Acute) Abdominal pain (Acute) Ileus (Acute) Subjective: Abdomen is not distended. Patient denies abdominal pain, distention. NG tube is draining bilious fluid. Did not pass flatus yet. Vitals/I&O's: Vital Signs Temp Pulse Resp BP Pulse Ox 98.4 F 72 18 144/75 H 94 03/09/18 07:50 03/09/18 08:32 03/09/18 08:32 03/09/18 07:50 03/09/18 10:15 Oxygen Flow Rate (L/min) 4 Oxygen Delivery Method Room Air Weight: 111 lb 8.862 oz Intake and Output for Last 24 Hours 03/07/18 03/08/18 03/09/18 23:59 23:59 23:59 Intake Total 997 / 2459 3319 / 3319 1588 / 1588 Output Total 1250 / 1700 3275 / 3275 1130 / 1130 Balance -253 / 759 44 / 44 458 / 458 General: Alert, Oriented x3, Cooperative HEENT: Atraumatic, PERRLA, EOMI, Normocephalic Neck: Supple, No JVD, Negative Carotid Bruits Lungs: Clear to auscultation, Diminished - Bilateral lung bases. Cardiovascular: Regular rate, Regular Rhythm, Normal S1, Normal S2, No murmurs Abdomen: Soft, Non Tender, Non-Distended, Hypoactive Bowel Sounds, - - NG tube Extremities: No edema, Capillary Refill Less than 3 Seconds Skin: No rashes, No breakdown Musculoskeletal: No Tenderness to Palpation of Joints or Extremities, Arthritic Changes Neurological: Cranial nerves II-XII grossly intact Psych/Mental Status: Normal Affect, Appropriate Laboratory Results 03/09/18 05:40: WBC 7.1, RBC 3.42 L, Hgb 11.3 L, Hct 33.7 L, MCV 98.5 H, MCH 33.0 H, MCHC 33.5, RDW 13.6, RDW Differential 47.3 H, Plt Count 177, MPV 10.2 03/09/18 05:40: Sodium 138, Potassium 4.0, Chloride 107, Carbon Dioxide 26.0, Anion Gap 5, BUN 8, Creatinine 1.18, Estim Creat Clear Calc 39.90, Est GFR (MDRD) Af Amer 78, Est GFR (MDRD) Non-Af 64, BUN/Creatinine Ratio 6.8 L, Glucose 118 H, Calcium 8.0 L Current Medications Acetaminophen (Tylenol) 650 mg PO Q6H PRN PRN PRN Reason: Mild Pain (1-3)/Temp > 100.7 F Albuterol Sulfate (Ventolin Aerosols) 2.5 mg INHALATION 4X/DAY.RT [facility] Last Admin: 03/09/18 07:48 Dose: 2.5 mg Albuterol Sulfate (Ventolin Aerosols) 2.5 mg INHALATION Q4H PRN PRN PRN Reason: wheezing Atorvastatin Calcium (Lipitor) 80 mg PO QHS [facility] Last Admin: 03/08/18 21:20 Dose: Not Given Bisacodyl (Dulcolax) 5 mg PO DAILY PRN PRN PRN Reason: Constipation Budesonide (Pulmicort Aerosol) 0.5 mg INHALATION BID.RT [facility] Last Admin: 03/09/18 07:48 Dose: 0.5 mg Carvedilol (Coreg) 6.25 mg PO BID [facility] Last Admin: 03/09/18 09:17 Dose: 6.25 mg Heparin Sodium (Porcine) (Heparin Na) 5,000 unit SC Q8 [facility] Last Admin: 03/09/18 06:13 Dose: 5,000 unit Hydromorphone HCl (Dilaudid Inj) 1 mg IV Q3H PRN PRN PRN Reason: SEVERE PAIN (6-10/10) Last Admin: 03/09/18 07:56 Dose: 1 mg Hydroxychloroquine Sulfate (Plaquenil) 200 mg PO MoWeFr@0800 [facility] Last Admin: 03/09/18 09:16 Dose: 200 mg Hydroxychloroquine Sulfate (Plaquenil) 300 mg PO SuTuThSa@0800 [facility] Last Admin: 03/08/18 08:10 Dose: Not Given Ceftriaxone Sodium 2 gm/ (Sodium Chloride) 50 mls @ 100 mls/hr IV Q24 [facility] Last Admin: 03/09/18 09:23 Dose: 100 mls/hr Potassium Chloride/Dextrose/Sod Cl (Kcl 20meq In D5.45ns 1000ml) 1,000 mls @ 125 mls/hr IV .Q8H [facility] Last Admin: 03/09/18 07:56 Dose: 125 mls/hr Magnesium Hydroxide (Milk Of Magnesia) 30 ml PO DAILY PRN PRN PRN Reason: Constipation Nicotine (Nicoderm Cq (Pbkc)) 21 mg TRANSDERM. DAILY [facility] Last Admin: 03/09/18 09:17 Dose: 21 mg Nutritional Formula (Lactose Free) (Ensure Clear) 120 ml PO 4X/DAY [facility] Last Admin: 03/09/18 09:17 Dose: Not Given Ondansetron HCl (Zofran) 4 mg IV Q6H PRN PRN PRN Reason: NAUSEA/VOMITING Last Admin: 03/08/18 14:55 Dose: 4 mg Oxycodone HCl (Oxyir) 5 - 10 mg PO Q4H PRN PRN PRN Reason: MOD-SEVERE PAIN (4-1010) Last Admin: 03/07/18 03:45 Dose: 10 mg Pantoprazole Sodium (Protonix) 40 mg PO BID [facility] Last Admin: 03/09/18 09:18 Dose: 40 mg Paroxetine HCl (Paxil) 20 mg PO DAILY [facility] Last Admin: 03/09/18 09:18 Dose: [facility] Last Admin: 03/09/18 09:17 Dose: 2 mg Promethazine HCl (Phenergan) 12.5 mg IV Q6H PRN PRN PRN Reason: NAUSEA/VOMITING Last Admin: 03/07/18 11:41 Dose: 12.5 mg Sodium Chloride () 5 - 30 ml IV UD PRN PRN Reason: SALINE FLUSH Last Admin: 03/09/18 07:57 Dose: 10 ml Tamsulosin HCl (Flomax) 0.4 mg PO DAILY@1730 [facility] Last Admin: 03/08/18 16:09 Dose: Not Given Throat Lozenges (Cepacol Sore Throat Lozenge) 1 lozenge MUCOUS MEM Q2H PRN PRN PRN Reason: SORE THROAT Last Admin: 03/08/18 11:09 Dose: 1 lozenge Zolpidem Tartrate (Ambien (Generic)) 5 mg PO QHS PRN PRN PRN Reason: INSOMNIA Medical Necessity - Tobacco Use Smoking Status: Current every day smoker Assessment/Plan All Active Problems (Last Reviewed 03/07/18 @ 01:05 by Bonilla Denise MD) Prostatitis, acute (Acute) Abdominal pain (Acute) Ileus (Acute) Suicidal ideation (Resolved) The patient is a 72 year old M with a significant history including COPD; ischemic cardiomyopathy; pulmonary hypertension and CKD who presented with severe lower abdominal pain; an assessment acute prostatitis made admitted to regular nursing floor for further management 1. Acute prostatitis repeat cultures drawn so far positive for E. coli (please refer to previous visit to review microbiology), pansensitive. Patient did fail outpatient treatment admitted to regular nursing floor was initially started on Bactrim which has been switched to IV Rocephin,started on 03/06/2018 2. Small bowel ileus as demonstrated on patient CAT scan patient conservatively with bowel rest, pain meds as well as antinausea medication with serial imaging studies ordered subsequent imaging studies demonstrated presence of small bowel ileus. CT abdomen showed dilated small bowel loops. An NG tube was placed with copious amount of NG secretions. Currently, on conservative management with NG decompression, IV fluid, monitor intake and output. Dr. Nathan consult reviewed and appreciated. 3. Chronic systolic heart failure 9schemic cardiomyopathy with an ejection fraction of 25%) currently compensated. 4. Rheumatoid arthritis; is on Plaquenil did continue. 5. Hypertension-blood pressure controlled, home medications continued with dose adjustment as needed 6. Dyslipidemia-patient is on statin therapy, continued at home dose 7. COPD without exacerbation did continue with home regimen 8. Coronary artery disease 9. Peripheral vascular disease with previous stents in his iliacs 10. BPH 11. Pulmonary hypertension Clinical Impression(s) from Imaging Studies Acute Abdomen Series 03/06/18 22:45 IMPRESSION: Probable small bowel obstruction.. Recommend CT abdomen and pelvis. Abdomen CT 03/07/18 01:16 IMPRESSION: Findings in keeping with a small bowel obstruction. Small amount of fluid is seen in the cul-de-sac. Laboratory Results 03/06/18 22:00: Carcinoembryonic Ag Pending, CA 19-9 Serial Monitor Pending 03/09/18 05:40: WBC 7.1, RBC 3.42 L, Hgb 11.3 L, Hct 33.7 L, MCV 98.5 H, MCH 33.0 H, MCHC 33.5, RDW 13.6, RDW Differential 47.3 H, Plt Count 177, MPV 10.2 03/09/18 05:40: Sodium 138, Potassium 4.0, Chloride 107, Carbon Dioxide 26.0, Anion Gap 5, BUN 8, Creatinine 1.18, Estim Creat Clear Calc 39.90, Est GFR (MDRD) Af Amer 78, Est GFR (MDRD) Non-Af 64, BUN/Creatinine Ratio 6.8 L, Glucose 118 H, Calcium 8.0 L Code Visit Inpatient E&M: 88980 Subs Hosp L3
--- NOTE | 2018-03-09 11:54 | PN_ITS ---
Patient Problems: Active and Suspected Problems (Last Reviewed 03/07/18 @ 01:05 by Bonilla Denise MD) Prostatitis, acute (Acute) Abdominal pain (Acute) Ileus (Acute) Subjective: Abdomen is not distended. Patient denies abdominal pain, distention. NG tube is draining bilious fluid. Did not pass flatus yet. Vitals/I&O's: Vital Signs Temp Pulse Resp BP Pulse Ox 98.4 F 72 18 144/75 H 94 03/09/18 07:50 03/09/18 08:32 03/09/18 08:32 03/09/18 07:50 03/09/18 10:15 Oxygen Flow Rate (L/min) 4 Oxygen Delivery Method Room Air Weight: 111 lb 8.862 oz Intake and Output for Last 24 Hours 03/07/18 03/08/18 03/09/18 23:59 23:59 23:59 Intake Total 997 / 2459 3319 / 3319 1588 / 1588 Output Total 1250 / 1700 3275 / 3275 1130 / 1130 Balance -253 / 759 44 / 44 458 / 458 General: Alert, Oriented x3, Cooperative HEENT: Atraumatic, PERRLA, EOMI, Normocephalic Neck: Supple, No JVD, Negative Carotid Bruits Lungs: Clear to auscultation, Diminished - Bilateral lung bases. Cardiovascular: Regular rate, Regular Rhythm, Normal S1, Normal S2, No murmurs Abdomen: Soft, Non Tender, Non-Distended, Hypoactive Bowel Sounds, - - NG tube Extremities: No edema, Capillary Refill Less than 3 Seconds Skin: No rashes, No breakdown Musculoskeletal: No Tenderness to Palpation of Joints or Extremities, Arthritic Changes Neurological: Cranial nerves II-XII grossly intact Psych/Mental Status: Normal Affect, Appropriate Laboratory Results 03/09/18 05:40: WBC 7.1, RBC 3.42 L, Hgb 11.3 L, Hct 33.7 L, MCV 98.5 H, MCH 33.0 H, MCHC 33.5, RDW 13.6, RDW Differential 47.3 H, Plt Count 177, MPV 10.2 03/09/18 05:40: Sodium 138, Potassium 4.0, Chloride 107, Carbon Dioxide 26.0, Anion Gap 5, BUN 8, Creatinine 1.18, Estim Creat Clear Calc 39.90, Est GFR (MDRD ) Af Amer 78, Est GFR (MDRD) Non-Af 64, BUN/Creatinine Ratio 6.8 L, Glucose 118 H, Calcium 8.0 L Current Medications Acetaminophen (Tylenol) 650 mg PO Q6H PRN PRN PRN Reason: Mild Pain (1-3)/Temp > 100.7 F Albuterol Sulfate (Ventolin Aerosols) 2.5 mg INHALATION 4X/DAY.RT [facility] Last Admin: 03/09/18 07:48 Dose: 2.5 mg Albuterol Sulfate (Ventolin Aerosols) 2.5 mg INHALATION Q4H PRN PRN PRN Reason: wheezing Atorvastatin Calcium (Lipitor) 80 mg PO QHS [facility] Last Admin: 03/08/18 21:20 Dose: Not Given Bisacodyl (Dulcolax) 5 mg PO DAILY PRN PRN PRN Reason: Constipation Budesonide (Pulmicort Aerosol) 0.5 mg INHALATION BID.RT [facility] Last Admin: 03/09/18 07:48 Dose: 0.5 mg Carvedilol (Coreg) 6.25 mg PO BID [facility] Last Admin: 03/09/18 09:17 Dose: 6.25 mg Heparin Sodium (Porcine) (Heparin Na) 5,000 unit SC Q8 [facility] Last Admin: 03/09/18 06:13 Dose: 5,000 unit Hydromorphone HCl (Dilaudid Inj) 1 mg IV Q3H PRN PRN PRN Reason: SEVERE PAIN (6-10/10) Last Admin: 03/09/18 07:56 Dose: 1 mg Hydroxychloroquine Sulfate (Plaquenil) 200 mg PO MoWeFr@0800 [facility] Last Admin: 03/09/18 09:16 Dose: 200 mg Hydroxychloroquine Sulfate (Plaquenil) 300 mg PO SuTuThSa@0800 [facility] Last Admin: 03/08/18 08:10 Dose: Not Given Ceftriaxone Sodium 2 gm/ (Sodium Chloride) 50 mls @ 100 mls/hr IV Q24 [facility] Last Admin: 03/09/18 09:23 Dose: 100 mls/hr Potassium Chloride/Dextrose/Sod Cl (Kcl 20meq In D5.45ns 1000ml) 1,000 mls @ 125 mls/hr IV .Q8H [facility] Last Admin: 03/09/18 07:56 Dose: 125 mls/hr Magnesium Hydroxide (Milk Of Magnesia) 30 ml PO DAILY PRN PRN PRN Reason: Constipation Nicotine (Nicoderm Cq (Pbkc)) 21 mg TRANSDERM. DAILY [facility] Last Admin: 03/09/18 09:17 Dose: 21 mg Nutritional Formula (Lactose Free) (Ensure Clear) 120 ml PO 4X/DAY [facility] Last Admin: 03/09/18 09:17 Dose: Not Given Ondansetron HCl (Zofran) 4 mg IV Q6H PRN PRN PRN Reason: NAUSEA/VOMITING Last Admin: 03/08/18 14:55 Dose: 4 mg Oxycodone HCl (Oxyir) 5 - 10 mg PO Q4H PRN PRN PRN Reason: MOD-SEVERE PAIN (4-1010) Last Admin: 03/07/18 03:45 Dose: 10 mg Pantoprazole Sodium (Protonix) 40 mg PO BID [facility] Last Admin: 03/09/18 09:18 Dose: 40 mg Paroxetine HCl (Paxil) 20 mg PO DAILY [facility] Last Admin: 03/09/18 09:18 Dose: 20 mg Prednisone () [facility] Last Admin: 03/09/18 09:17 Dose: 2 mg Promethazine HCl (Phenergan) 12.5 mg IV Q6H PRN PRN PRN Reason: NAUSEA/VOMITING Last Admin: 03/07/18 11:41 Dose: 12.5 mg Sodium Chloride () 5 - 30 ml IV UD PRN PRN Reason: SALINE FLUSH Last Admin: 03/09/18 07:57 Dose: 10 ml Tamsulosin HCl (Flomax) 0.4 mg PO DAILY@1730 [facility] Last Admin: 03/08/18 16:09 Dose: Not Given Throat Lozenges (Cepacol Sore Throat Lozenge) 1 lozenge MUCOUS MEM Q2H PRN PRN PRN Reason: SORE THROAT Last Admin: 03/08/18 11:09 Dose: 1 lozenge Zolpidem Tartrate (Ambien (Generic)) 5 mg PO QHS PRN PRN PRN Reason: INSOMNIA Medical Necessity - Tobacco Use Smoking Status: Current every day smoker Assessment/Plan All Active Problems (Last Reviewed 03/07/18 @ 01:05 by Bonilla Denise MD) Prostatitis, acute (Acute) Abdominal pain (Acute) Ileus (Acute) Suicidal ideation (Resolved) The patient is a 72 year old M with a significant history including COPD; ischemic cardiomyopathy; pulmonary hypertension and CKD who presented with severe lower abdominal pain; an assessment acute prostatitis made admitted to regular nursing floor for further management 1. Acute prostatitis repeat cultures drawn so far positive for E. coli (please refer to previous visit to review microbiology), pansensitive. Patient did fail outpatient treatment admitted to regular nursing floor was initially started on Bactrim which has been switched to IV Rocephin,started on 03/06/2018 2. Small bowel ileus as demonstrated on patient CAT scan patient conservatively with bowel rest, pain meds as well as antinausea medication with serial imaging studies ordered subsequent imaging studies demonstrated presence of small bowel ileus. CT abdomen showed dilated small bowel loops. An NG tube was placed with copious amount of NG secretions. Currently, on conservative management with NG decompression, IV fluid, monitor intake and output. Dr. Nathan consult reviewed and appreciated. 3. Chronic systolic heart failure 9schemic cardiomyopathy with an ejection fraction of 25%) currently compensated. 4. Rheumatoid arthritis; is on Plaquenil did continue. 5. Hypertension-blood pressure controlled, home medications continued with dose adjustment as needed 6. Dyslipidemia-patient is on statin therapy, continued at home dose 7. COPD without exacerbation did continue with home regimen 8. Coronary artery disease 9. Peripheral vascular disease with previous stents in his iliacs 10. BPH 11. Pulmonary hypertension Clinical Impression(s) from Imaging Studies Acute Abdomen Series 03/06/18 22:45 IMPRESSION: Probable small bowel obstruction.. Recommend CT abdomen and pelvis. Abdomen CT 03/07/18 01:16 IMPRESSION: Findings in keeping with a small bowel obstruction. Small amount of fluid is seen in the cul-de-sac. Laboratory Results 03/06/18 22:00: Carcinoembryonic Ag Pending, [place] 19-9 Serial Monitor Pending 03/09/18 05:40: WBC 7.1, RBC 3.42 L, Hgb 11.3 L, Hct 33.7 L, MCV 98.5 H, MCH 33.0 H, MCHC 33.5, RDW 13.6, RDW Differential 47.3 H, Plt Count 177, MPV 10.2 03/09/18 05:40: Sodium 138, Potassium 4.0, Chloride 107, Carbon Dioxide 26.0, Anion Gap 5, BUN 8, Creatinine 1.18, Estim Creat Clear Calc 39.90, Est GFR (MDRD ) Af Amer 78, Est GFR (MDRD) Non-Af 64, BUN/Creatinine Ratio 6.8 L, Glucose 118 H, Calcium 8.0 L Code Visit Inpatient E&M: 57122 Subs Hosp L3
--- NOTE | 2018-03-09 12:38 | NURSING ---
pt up to side of bed to ambulate and coughing up small amt thick yellow sputum with exertion and spo2 only 84% on ra. once pt placed on 2l sats 94%. amb to joint center room and started coughing again for thick yellow stringy mucous. sob noted though pt sats with o2 maintained. pt with no hx home o2.. only walked out to joint center but too dyspneic to return to room so wc used. lungs with insp and exp wheezes throughout. cps called for treatment.
--- NOTE | 2018-03-09 13:35 | RAD_ITS ---
STUDY: X-RAY CHEST REASON FOR EXAM: Male, 72 years old. Shortness of breath. TECHNIQUE: PA and lateral views of the chest. COMPARISON: March 06, 2018. FINDINGS: The lungs remain hyperinflated. There is no new focal consolidation. Normal size heart. Normal mediastinum and anitha. Normal visualized pulmonary arteries. Normal visualized aortic arch and descending thoracic aorta. Normal visualized thoracic spine. There is a stable anterior compression deformity of a mid thoracic vertebra. There is a nasogastric tube in place with its tip within the expected region of the gastric fundus.. RAD/Chest PA and Lateral IMPRESSION: Hyperinflated lungs suggestive of underlying COPD. Electronically Signed: Carolyn Conte MD at 18:12 EDT Tel , Service support ,
--- NOTE | 2018-03-09 14:15 | NURSING ---
L nares NG tube fkushed at this time with 50mL of NS per orders, pt tolerated well
--- NOTE | 2018-03-09 16:28 | PN.SURG_ITS ---
Patient Problems: Active and Suspected Problems (Last Reviewed 03/07/18 @ 01:05 by Bonilla Denise MD) Prostatitis, acute (Acute) Abdominal pain (Acute) Ileus (Acute) Subjective: The patient reported that his abdomen feels better this morning. He is still not passing any flatus. - Physical Exam General: Alert, Oriented x3, Cooperative HEENT: Atraumatic Neck: Supple Lungs: Normal air movement Cardiovascular: Regular rate, Regular Rhythm Abdomen: Soft, Non Tender, Non-Distended Vital Signs Temp Pulse Resp BP Pulse Ox 97.8 F 76 20 H 146/79 H 94 03/09/18 13:10 03/09/18 13:10 03/09/18 14:28 03/09/18 13:10 03/09/18 14:28 Oxygen Flow Rate (L/min) 2 Oxygen Delivery Method Nasal Cannula Weight: 111 lb 8.862 oz Intake and Output for Last 24 Hours 03/07/18 03/08/18 03/09/18 23:59 23:59 23:59 Intake Total 997 / 2459 3319 / 3319 2470 / 2470 Output Total 1250 / 1700 3275 / 3275 1805 / 1805 Balance -253 / 759 44 / 44 665 / 665 Laboratory Tests Past 24 Hrs 03/09/18 03/09/18 05:40 05:40 WBC 7.1 RBC 3.42 L Hgb 11.3 L Hct 33.7 L MCV 98.5 H MCH 33.0 H MCHC 33.5 RDW 13.6 RDW Differential 47.3 H Plt Count 177 MPV 10.2 Sodium 138 Potassium 4.0 Chloride 107 Carbon Dioxide 26.0 Anion Gap 5 BUN 8 Creatinine 1.18 Estim Creat Clear Calc 39.90 Est GFR (MDRD) Af Amer 78 Est GFR (MDRD) Non-Af 64 BUN/Creatinine Ratio 6.8 L Glucose 118 H Calcium 8.0 L Medical Necessity - Tobacco Use Smoking Status: Current every day smoker Assessment/Plan All Active Problems (Last Reviewed 03/07/18 @ 01:05 by Bonilla Denise MD) Prostatitis, acute (Acute) Abdominal pain (Acute) Ileus (Acute) Suicidal ideation (Resolved) 72-year-old male with ileus versus small bowel obstruction 1. The patient is still not reporting any flatus. He says that he is not having any abdominal pain this morning. His NG is much less bilious than yesterday. It appears clear in the tubing today. 2. At this time I believe his contrast is becoming less bilious and things are moving downstream. I continue to recommend conservative treatment and awaiting bowel function. Continue ambulation and incentive spirometer as well as antibiotics for his infection. Tom Nathan MD Pager: [facility] [address] [place] [address], [address] [place] [address] Office:
[2018-03-09] MEDS: Tamsulosin HCl 0.4 MG Capsule PO (16:47)
[2018-03-09] MEDS: Acetylcysteine 800 MG/4 ML VIAL.NEB. INHALATION (19:33)
[2018-03-09] MEDS: Ipratropium/Albuterol Sulfate 3 ML AMPUL.NEB INHALATION (19:33)
[2018-03-09] MEDS: Atorvastatin Calcium 80 MG Tablet PO (22:02)
[2018-03-10] VITALS (12 sets, daily range): BP systolic 127–145; BP diastolic 75–83; PULSE 66–79; RESP 16–20; TEMP 36.8–37.3; O2SAT 92–98
[2018-03-10] MEDS: Acetylcysteine 800 MG/4 ML VIAL.NEB. INHALATION ×4 (01:39→18:49)
[2018-03-10] MEDS: Albuterol 2.5 MG/3 ML VIAL.NEB. INHALATION (01:39)
[2018-03-10] MEDS: Heparin Injection (Vial) 5,000 UNIT/ML VIAL 5000 UNIT SC ×3 (06:33→22:46)
[2018-03-10] MEDS: Ipratropium/Albuterol Sulfate 3 ML AMPUL.NEB INHALATION ×3 (06:58→18:49)
[2018-03-10] MEDS: Budesonide Respules 0.5 MG/2 ML AMPUL.NEB. INHALATION ×2 (06:58→18:49)
--- NOTE | 2018-03-10 07:30 | PCM.PN.SRG ---
Patient Problems: Active and Suspected Problems (Last Reviewed 03/07/18 @ 01:05 by Bonilla Denise MD) Prostatitis, acute (Acute) Abdominal pain (Acute) Ileus (Acute) Subjective: Patient states that he is passing flatus and feels hungry. He has no nausea. Objective: Abdomen is flat nondistended no rebound guarding or peritoneal signs are identified - Physical Exam Vital Signs Temp Pulse Resp BP Pulse Ox 98.2 F 67 20 H 127/75 H 98 03/10/18 07:23 03/10/18 07:23 03/10/18 07:23 03/10/18 07:23 03/10/18 07:23 Oxygen Flow Rate (L/min) 2 Oxygen Delivery Method Nasal Cannula Weight: 111 lb 8.862 oz Intake and Output for Last 24 Hours 03/08/18 03/09/18 03/10/18 23:59 23:59 23:59 Intake Total 3319 / 3319 3126 / 3126 1558 / 1558 Output Total 3275 / 3275 2205 / 2205 1900 / 1900 Balance 44 / 44 921 / 921 -342 / -342 Laboratory Tests Past 24 Hrs 03/10/18 06:20 Sodium Pending Potassium Pending Chloride Pending Carbon Dioxide Pending Anion Gap Pending BUN Pending Creatinine Pending Est GFR (MDRD) Af Amer Pending Est GFR (MDRD) Non-Af Pending BUN/Creatinine Ratio Pending Glucose Pending Calcium Pending Medical Necessity - Tobacco Use Smoking Status: Current every day smoker Assessment/Plan All Active Problems (Last Reviewed 03/07/18 @ 01:05 by Bonilla Denise MD) Prostatitis, acute (Acute) Abdominal pain (Acute) Ileus (Acute) Suicidal ideation (Resolved) Okay to start liquid diet with advance when tolerating to full liquids.
[2018-03-10 07:55] LABS: Anion Gap 7 (5-15); BUN 8 mg/dL (7-18); BUN/Creat Ratio 6.8 RATIO (10-20); Calcium,Total 8.4 mg/dL (8.5-10.1); Chloride 106 mmol/L (98-107); Creatinine, Serum 1.18 mg/dL (0.70-1.30); EST Glomerular Filtration Rate 64 mL/min (>60); Est Glom Filt Rate - Afr Amer 78 mL/min (>60); Glucose 104 mg/dL (74-106); Potassium 3.9 mmol/L (3.5-5.1); Sodium Level 140 mmol/L (136-145)
[2018-03-10] MEDS: predniSONE 1 MG Tablet 2 MG PO (08:53)
[2018-03-10] MEDS: Pantoprazole Sodium 40 MG Tablet PO ×2 (08:53→22:46)
[2018-03-10] MEDS: Carvedilol 6.25 MG Tablet PO ×2 (08:53→22:46)
[2018-03-10] MEDS: Hydroxychloroquine 200 MG Tablet 300 MG PO (09:00)
--- NOTE | 2018-03-10 09:55 | PN_ITS ---
Patient Problems: Active and Suspected Problems (Last Reviewed 03/07/18 @ 01:05 by Bonilla Denise MD) Prostatitis, acute (Acute) Abdominal pain (Acute) Ileus (Acute) Subjective: Patient passed flatus. Patient moved his bowels in the morning today. Started on clear liquid diet and advance to full liquid diet. This breathing is better. Continue bronchodilator Vitals/I&O's: Vital Signs Temp Pulse Resp BP Pulse Ox 98.2 F 67 20 H 127/75 H 92 03/10/18 07:23 03/10/18 07:23 03/10/18 07:23 03/10/18 07:23 03/10/18 09:29 Oxygen Flow Rate (L/min) 3 Oxygen Delivery Method Nasal Cannula Weight: 111 lb 8.862 oz Intake and Output for Last 24 Hours 03/08/18 03/09/18 03/10/18 23:59 23:59 23:59 Intake Total 3319 / 3319 3126 / 3126 1558 / 1558 Output Total 3275 / 3275 2205 / 2205 1900 / 1900 Balance 44 / 44 921 / 921 -342 / -342 General: Alert, Oriented x3, Cooperative HEENT: Atraumatic, PERRLA, EOMI, Normocephalic Neck: Supple, No JVD, Negative Carotid Bruits Lungs: No wheeze, No rales, Diminished, Rhonchi - Mild expiratory rhonchi Cardiovascular: Regular rate, Regular Rhythm, Normal S1, Normal S2, No murmurs Abdomen: Bowel Sounds Present, Soft, Non Tender, Non-Distended Extremities: No edema, Capillary Refill Less than 3 Seconds Skin: No rashes, No breakdown Musculoskeletal: No Tenderness to Palpation of Joints or Extremities Neurological: Cranial nerves II-XII grossly intact Psych/Mental Status: Normal Affect, Appropriate Laboratory Results 03/10/18 06:20: Sodium 140, Potassium 3.9, Chloride 106, Carbon Dioxide 27.0, Anion Gap 7, BUN 8, Creatinine 1.18, Estim Creat Clear Calc 39.90, Est GFR (MDRD ) Af Amer 78, Est GFR (MDRD) Non-Af 64, BUN/Creatinine Ratio 6.8 L, Glucose 104 , Calcium 8.4 L Current Medications Acetaminophen (Tylenol) 650 mg PO Q6H PRN PRN PRN Reason: Mild Pain (1-3)/Temp > 100.7 F Acetylcysteine (Mucomyst) 800 mg INHALATION Q6H.RT [facility] Last Admin: 03/10/18 06:58 Dose: 800 mg Albuterol Sulfate (Ventolin Aerosols) 2.5 mg INHALATION Q4H PRN PRN PRN Reason: wheezing Last Admin: 03/10/18 01:39 Dose: 2.5 mg Albuterol/Ipratropium (Duoneb) 3 ml INHALATION Q6HWA.RT [facility] Last Admin: 03/10/18 06:58 Dose: 3 ml Atorvastatin Calcium (Lipitor) 80 mg PO QHS [facility] Last Admin: 03/09/18 22:02 Dose: 80 mg Bisacodyl (Dulcolax) 5 mg PO DAILY PRN PRN PRN Reason: Constipation Budesonide (Pulmicort Aerosol) 0.5 mg INHALATION BID.RT [facility] Last Admin: 03/10/18 06:58 Dose: 0.5 mg Carvedilol (Coreg) 6.25 mg PO BID [facility] Last Admin: 03/10/18 08:53 Dose: 6.25 mg Heparin Sodium (Porcine) (Heparin Na) 5,000 unit SC Q8 [facility] Last Admin: 03/10/18 06:33 Dose: 5,000 unit Hydromorphone HCl (Dilaudid Inj) 1 mg IV Q3H PRN PRN PRN Reason: SEVERE PAIN (6-10/10) Last Admin: 03/09/18 14:14 Dose: 1 mg Hydroxychloroquine Sulfate (Plaquenil) 200 mg PO MoWeFr@0800 [facility] Last Admin: 03/09/18 09:16 Dose: 200 mg Hydroxychloroquine Sulfate (Plaquenil) 300 mg PO SuTuThSa@0800 [facility] Last Admin: 03/10/18 09:00 Dose: 300 mg Potassium Chloride/Dextrose/Sod Cl (Kcl 20meq In D5.45ns 1000ml) 1,000 mls @ 125 mls/hr IV .Q8H [facility] Last Admin: 03/10/18 02:00 Dose: 125 mls/hr Ceftriaxone Sodium 2 gm/ (Dextrose) 50 mls @ 100 mls/hr IV Q24 [facility] Last Admin: 03/10/18 09:04 Dose: 100 mls/hr Magnesium Hydroxide (Milk Of Magnesia) 30 ml PO DAILY PRN PRN PRN Reason: Constipation Nicotine (Nicoderm Cq (Pbkc)) 21 mg TRANSDERM. DAILY [facility] Last Admin: 03/10/18 08:54 Dose: 21 mg Nutritional Formula (Lactose Free) (Ensure Clear) 120 ml PO 4X/DAY [facility] Last Admin: 03/10/18 09:03 Dose: 120 ml Ondansetron HCl (Zofran) 4 mg IV Q6H PRN PRN PRN Reason: NAUSEA/VOMITING Last Admin: 03/08/18 14:55 Dose: 4 mg Oxycodone HCl (Oxyir) 5 - 10 mg PO Q4H PRN PRN PRN Reason: MOD-SEVERE PAIN (4-10/10) Last Admin: 03/07/18 03:45 Dose: 10 mg Pantoprazole Sodium (Protonix) 40 mg PO BID [facility] Last Admin: 03/10/18 08:53 Dose: 40 mg Paroxetine HCl (Paxil) 20 mg PO DAILY [facility] Last Admin: 03/10/18 08:53 Dose: [facility] Last Admin: 03/10/18 08:53 Dose: 2 mg Promethazine HCl (Phenergan) 12.5 mg IV Q6H PRN PRN PRN Reason: NAUSEA/VOMITING Last Admin: 03/07/18 11:41 Dose: 12.5 mg Sodium Chloride () 5 - 30 ml IV UD PRN PRN Reason: SALINE FLUSH Last Admin: 03/09/18 14:14 Dose: 10 ml Tamsulosin HCl (Flomax) 0.4 mg PO DAILY@1730 [facility] Last Admin: 03/09/18 16:47 Dose: 0.4 mg Throat Lozenges (Cepacol Sore Throat Lozenge) 1 lozenge MUCOUS MEM Q2H PRN PRN PRN Reason: SORE THROAT Last Admin: 03/08/18 11:09 Dose: 1 lozenge Zolpidem Tartrate (Ambien (Generic)) 5 mg PO QHS PRN PRN PRN Reason: INSOMNIA Medical Necessity - Tobacco Use Smoking Status: Current every day smoker Assessment/Plan All Active Problems (Last Reviewed 03/07/18 @ 01:05 by Bonilla Denise MD) Prostatitis, acute (Acute) Abdominal pain (Acute) Ileus (Acute) Suicidal ideation (Resolved) The patient is a 72 year old M with a significant history including COPD; ischemic cardiomyopathy; pulmonary hypertension and CKD who presented with severe lower abdominal pain; an assessment acute prostatitis made admitted to regular nursing floor for further management 1. Acute prostatitis repeat cultures drawn so far positive for E. coli (please refer to previous visit to review microbiology), pansensitive. Patient did fail outpatient treatment admitted to regular nursing floor was initially started on Bactrim which has been switched to IV Rocephin,started on 03/06/2018 2. Small bowel ileus as demonstrated on patient CAT scan patient conservatively with bowel rest, pain meds as well as antinausea medication with serial imaging studies ordered subsequent imaging studies demonstrated presence of small bowel ileus. CT abdomen showed dilated small bowel loops. An NG tube was placed with copious amount of NG secretions. Patient is started on clear liquid diet advanced to full liquid. Continue IV fluid and taper depending on his oral intake, monitor intake and output. Dr. Nathan consult reviewed and appreciated. Dr. Chan follow-up reviewed. 3. Chronic systolic heart failure (schemic cardiomyopathy with an ejection fraction of 40%) currently compensated. 4. Rheumatoid arthritis; is on Plaquenil did continue. 5. Hypertension-blood pressure controlled, home medications continued with dose adjustment as needed 6. Dyslipidemia-patient is on statin therapy, continued at home dose 7. COPD without exacerbation did continue with home regimen. Chronic hypoxic respiratory failure: I think patient has advanced COPD with history of 50+ pack years of smoking and chest x-ray finding. He was not on home oxygen but I think his oxygen requirement is chronic or was not diagnosed before As per previous echo in 06/2014, the EF was 40% with 1-2+ TR and RVSP 30 mmHg 8. Coronary artery disease 9. Peripheral vascular disease with previous stents in his iliacs 10. BPH 11. Mild pulmonary hypertension Clinical Impression(s) from Imaging Studies Acute Abdomen Series 03/06/18 22:45 IMPRESSION: Probable small bowel obstruction.. Recommend CT abdomen and pelvis. Abdomen CT 03/07/18 01:16 IMPRESSION: Findings in keeping with a small bowel obstruction. Small amount of fluid is seen in the cul-de-sac. Chest X-Ray 03/09/18 13:35 IMPRESSION: Hyperinflated lungs suggestive of underlying COPD. Laboratory Results 03/10/18 06:20: Sodium 140, Potassium 3.9, Chloride 106, Carbon Dioxide 27.0, Anion Gap 7, BUN 8, Creatinine 1.18, Estim Creat Clear Calc 39.90, Est GFR (MDRD ) Af Amer 78, Est GFR (MDRD) Non-Af 64, BUN/Creatinine Ratio 6.8 L, Glucose 104 , Calcium 8.4 L Code Visit Inpatient E&M: 88352 Subs Hosp L3
[2018-03-10 14:12] LABS: Carbohydrate Ag 19-9 2261 32 U/mL (0-35); Carcinoembryonic Antigen 3.5 ng/mL (0.0-4.7)
[2018-03-10] MEDS: Tamsulosin HCl 0.4 MG Capsule PO (18:00)
[2018-03-10] MEDS: Atorvastatin Calcium 80 MG Tablet PO (22:46)
[2018-03-11] VITALS (7 sets, daily range): BP systolic 120–138; BP diastolic 80–85; PULSE 68–85; RESP 16–22; TEMP 36.6–36.8; O2SAT 90–98
[2018-03-11] MEDS: 0.9% NaCl Peripheral Flush Adult/Peds IV
[2018-03-11] MEDS: Heparin Injection (Vial) 5,000 UNIT/ML VIAL 5000 UNIT SC ×3 (06:38→22:47)
[2018-03-11] MEDS: Ipratropium/Albuterol Sulfate 3 ML AMPUL.NEB INHALATION ×3 (07:07→19:26)
[2018-03-11] MEDS: Budesonide Respules 0.5 MG/2 ML AMPUL.NEB. INHALATION ×2 (07:07→19:26)
[2018-03-11] MEDS: Pantoprazole Sodium 40 MG Tablet PO ×2 (08:45→22:47)
[2018-03-11] MEDS: Carvedilol 6.25 MG Tablet PO ×2 (08:45→22:47)
[2018-03-11] MEDS: predniSONE 1 MG Tablet 2 MG PO (08:45)
[2018-03-11] MEDS: Hydroxychloroquine 200 MG Tablet 300 MG PO (08:47)
--- NOTE | 2018-03-11 10:32 | PCM.PN.SRG ---
Patient Problems: Active and Suspected Problems (Last Reviewed 03/07/18 @ 01:05 by Bonilla Denise MD) Prostatitis, acute (Acute) Abdominal pain (Acute) Ileus (Acute) Subjective: Patient moving his bowels and urinating. Requesting that his diet be advanced Objective: Abdomen is soft - Physical Exam Vital Signs Temp Pulse Resp BP Pulse Ox 98.3 F 74 16 131/83 H 93 03/11/18 08:41 03/11/18 08:41 03/11/18 08:41 03/11/18 08:41 03/11/18 08:41 Oxygen Flow Rate (L/min) 2 Oxygen Delivery Method Room Air Weight: 111 lb 8.862 oz Intake and Output for Last 24 Hours 03/09/18 03/10/18 03/11/18 23:59 23:59 23:59 Intake Total 3126 / 3126 3895 / 3895 1829 / 1829 Output Total 2205 / 2205 2850 / 2850 Balance 921 / 921 1045 / 1045 1829 / 1829 Medical Necessity - Tobacco Use Smoking Status: Current every day smoker Assessment/Plan All Active Problems (Last Reviewed 03/07/18 @ 01:05 by Bonilla Denise MD) Prostatitis, acute (Acute) Abdominal pain (Acute) Ileus (Acute) Suicidal ideation (Resolved) Okay to start advancing his diet.
--- NOTE | 2018-03-11 15:09 | PCM.PN.HOSP ---
Patient Problems: Active and Suspected Problems (Last Reviewed 03/07/18 @ 01:05 by Bonilla Denise MD) Prostatitis, acute (Acute) Abdominal pain (Acute) Ileus (Acute) Subjective: Patient tolerated a liquid diet yesterday and at night advanced to soft diet. Patient has moved well formed stool. No rectal blood. Discontinue IV fluid. Vitals/I&O's: Vital Signs Temp Pulse Resp BP Pulse Ox 97.8 F 71 16 138/80 H 98 03/11/18 14:07 03/11/18 14:07 03/11/18 14:07 03/11/18 14:07 03/11/18 14:07 Oxygen Flow Rate (L/min) 2 Oxygen Delivery Method Room Air Weight: 111 lb 8.862 oz Intake and Output for Last 24 Hours 03/09/18 03/10/18 03/11/18 23:59 23:59 23:59 Intake Total 3126 / 3126 3895 / 3895 2894 / 2894 Output Total 2205 / 2205 2850 / 2850 675 / 675 Balance 921 / 921 1045 / 1045 2219 / 2219 General: Alert, Oriented x3, Cooperative HEENT: Atraumatic, PERRLA, EOMI, Normocephalic Neck: Supple, No JVD, Negative Carotid Bruits Lungs: Diminished, Rhonchi - Expiratory rhonchi present Cardiovascular: Regular rate, No murmurs Abdomen: Bowel Sounds Present, Soft, Non Tender, Non-Distended Extremities: No edema, Capillary Refill Less than 3 Seconds Skin: No rashes, No breakdown Musculoskeletal: No Tenderness to Palpation of Joints or Extremities, Arthritic Changes, Muscle Wasting Neurological: Cranial nerves II-XII grossly intact Psych/Mental Status: Normal Affect, Appropriate Current Medications Acetaminophen (Tylenol) 650 mg PO Q6H PRN PRN PRN Reason: Mild Pain (1-3)/Temp > 100.7 F Acetylcysteine (Mucomyst) 800 mg INHALATION Q6H.RT [facility] Last Admin: 03/11/18 07:07 Dose: Not Given Albuterol Sulfate (Ventolin Aerosols) 2.5 mg INHALATION Q4H PRN PRN PRN Reason: wheezing Last Admin: 03/10/18 01:39 Dose: 2.5 mg Albuterol/Ipratropium (Duoneb) 3 ml INHALATION Q6HWA.RT [facility] Last Admin: 03/11/18 13:10 Dose: 3 ml Atorvastatin Calcium (Lipitor) 80 mg PO QHS [facility] Last Admin: 03/10/18 22:46 Dose: 80 mg Bisacodyl (Dulcolax) 5 mg PO DAILY PRN PRN PRN Reason: Constipation Budesonide (Pulmicort Aerosol) 0.5 mg INHALATION BID.RT [facility] Last Admin: 03/11/18 07:07 Dose: 0.5 mg Carvedilol (Coreg) 6.25 mg PO BID [facility] Last Admin: 03/11/18 08:45 Dose: 6.25 mg Heparin Sodium (Porcine) (Heparin Na) 5,000 unit SC Q8 [facility] Last Admin: 03/11/18 14:06 Dose: 5,000 unit Hydromorphone HCl (Dilaudid Inj) 1 mg IV Q3H PRN PRN PRN Reason: SEVERE PAIN (6-10/10) Last Admin: 03/09/18 14:14 Dose: 1 mg Hydroxychloroquine Sulfate (Plaquenil) 200 mg PO MoWeFr@0800 [facility] Last Admin: 03/09/18 09:16 Dose: 200 mg Hydroxychloroquine Sulfate (Plaquenil) 300 mg PO SuTuThSa@0800 [facility] Last Admin: 03/11/18 08:47 Dose: 300 mg Ceftriaxone Sodium 2 gm/ (Dextrose) 50 mls @ 100 mls/hr IV Q24 [facility] Last Admin: 03/11/18 08:52 Dose: 100 mls/hr Magnesium Hydroxide (Milk Of Magnesia) 30 ml PO DAILY PRN PRN PRN Reason: Constipation Nicotine (Nicoderm Cq (Pbkc)) 21 mg TRANSDERM. DAILY [facility] Last Admin: 03/11/18 08:45 Dose: 21 mg Nutritional Formula (Lactose Free) (Ensure Clear) 120 ml PO 4X/DAY [facility] Last Admin: 03/11/18 13:12 Dose: Not Given Ondansetron HCl (Zofran) 4 mg IV Q6H PRN PRN PRN Reason: NAUSEA/VOMITING Last Admin: 03/08/18 14:55 Dose: 4 mg Oxycodone HCl (Oxyir) 5 - 10 mg PO Q4H PRN PRN PRN Reason: MOD-SEVERE PAIN (4-10/10) Last Admin: 03/07/18 03:45 Dose: 10 mg Pantoprazole Sodium (Protonix) 40 mg PO BID [facility] Last Admin: 03/11/18 08:45 Dose: 40 mg Paroxetine HCl (Paxil) 20 mg PO DAILY [facility] Last Admin: 03/11/18 08:45 Dose: [facility] Last Admin: 03/11/18 08:45 Dose: 2 mg Promethazine HCl (Phenergan) 12.5 mg IV Q6H PRN PRN PRN Reason: NAUSEA/VOMITING Last Admin: 03/07/18 11:41 Dose: 12.5 mg Sodium Chloride () 5 - 30 ml IV UD PRN PRN Reason: SALINE FLUSH Last Admin: 03/11/18 00:00 Dose: 10 ml Tamsulosin HCl (Flomax) 0.4 mg PO DAILY@1730 [facility] Last Admin: 03/10/18 18:00 Dose: 0.4 mg Throat Lozenges (Cepacol Sore Throat Lozenge) 1 lozenge MUCOUS MEM Q2H PRN PRN PRN Reason: SORE THROAT Last Admin: 03/08/18 11:09 Dose: 1 lozenge Zolpidem Tartrate (Ambien (Generic)) 5 mg PO QHS PRN PRN PRN Reason: INSOMNIA Medical Necessity - Tobacco Use Smoking Status: Current every day smoker Assessment/Plan All Active Problems (Last Reviewed 03/07/18 @ 01:05 by Bonilla Denise MD) Prostatitis, acute (Acute) Abdominal pain (Acute) Ileus (Acute) Suicidal ideation (Resolved) The patient is a 72 year old M with a significant history including COPD; ischemic cardiomyopathy; pulmonary hypertension and CKD who presented with severe lower abdominal pain; an assessment acute prostatitis made admitted to regular nursing floor for further management 1. Acute prostatitis repeat cultures drawn so far positive for E. coli (please refer to previous visit to review microbiology), pansensitive. Patient did fail outpatient treatment admitted to regular nursing floor was initially started on Bactrim which has been switched to IV Rocephin,started on 03/06/2018. IV antibiotic to be discontinued on 03/12/2018 after completion of 6 days 2. Small bowel ileus as demonstrated on patient CAT scan patient conservatively with bowel rest, pain meds as well as antinausea medication with serial imaging studies ordered subsequent imaging studies demonstrated presence of small bowel ileus. CT abdomen showed dilated small bowel loops. An NG tube was placed with copious amount of NG secretions later on removed. Patient is started on clear liquid diet advanced soft diet. Discontinue IV fluid Dr. Nathan consult reviewed and appreciated. Dr. Chan follow-up reviewed. 3. Chronic systolic heart failure (schemic cardiomyopathy with an ejection fraction of 40%) currently compensated. 4. Rheumatoid arthritis; is on Plaquenil did continue. 5. Hypertension-blood pressure controlled, home medications continued with dose adjustment as needed 6. Dyslipidemia-patient is on statin therapy, continued at home dose 7. COPD without exacerbation did continue with home regimen. Chronic hypoxic respiratory failure: I think patient has advanced COPD with history of 50+ pack years of smoking and chest x-ray finding. He was not on home oxygen but I think his oxygen requirement is chronic or was not diagnosed before As per previous echo in 06/2014, the EF was 40% with 1-2+ TR and RVSP 30 mmHg 8. Coronary artery disease 9. Peripheral vascular disease with previous stents in his iliacs 10. BPH 11. Mild pulmonary hypertension Patient can be discharged tomorrow a.m. after he tolerates soft diet and if Dr. Chan agrees. Clinical Impression(s) from Imaging Studies Acute Abdomen Series 03/06/18 22:45 IMPRESSION: Probable small bowel obstruction.. Recommend CT abdomen and pelvis. Abdomen CT 03/07/18 01:16 IMPRESSION: Findings in keeping with a small bowel obstruction. Small amount of fluid is seen in the cul-de-sac. Chest X-Ray 03/09/18 13:35 IMPRESSION: Hyperinflated lungs suggestive of underlying COPD. Laboratory Results 03/10/18 06:20: Sodium 140, Potassium 3.9, Chloride 106, Carbon Dioxide 27.0, Anion Gap 7, BUN 8, Creatinine 1.18, Estim Creat Clear Calc 39.90, Est GFR (MDRD) Af Amer 78, Est GFR (MDRD) Non-Af 64, BUN/Creatinine Ratio 6.8 L, Glucose 104, Calcium 8.4 L Code Visit Inpatient E&M: 66405 Subs Hosp L3
--- NOTE | 2018-03-11 15:13 | PN_ITS ---
Patient Problems: Active and Suspected Problems (Last Reviewed 03/07/18 @ 01:05 by Bonilla Denise MD) Prostatitis, acute (Acute) Abdominal pain (Acute) Ileus (Acute) Subjective: Patient tolerated a liquid diet yesterday and at night advanced to soft diet. Patient has moved well formed stool. No rectal blood. Discontinue IV fluid. Vitals/I&O's: Vital Signs Temp Pulse Resp BP Pulse Ox 97.8 F 71 16 138/80 H 98 03/11/18 14:07 03/11/18 14:07 03/11/18 14:07 03/11/18 14:07 03/11/18 14:07 Oxygen Flow Rate (L/min) 2 Oxygen Delivery Method Room Air Weight: 111 lb 8.862 oz Intake and Output for Last 24 Hours 03/09/18 03/10/18 03/11/18 23:59 23:59 23:59 Intake Total 3126 / 3126 3895 / 3895 2894 / 2894 Output Total 2205 / 2205 2850 / 2850 675 / 675 Balance 921 / 921 1045 / 1045 2219 / 2219 General: Alert, Oriented x3, Cooperative HEENT: Atraumatic, PERRLA, EOMI, Normocephalic Neck: Supple, No JVD, Negative Carotid Bruits Lungs: Diminished, Rhonchi - Expiratory rhonchi present Cardiovascular: Regular rate, No murmurs Abdomen: Bowel Sounds Present, Soft, Non Tender, Non-Distended Extremities: No edema, Capillary Refill Less than 3 Seconds Skin: No rashes, No breakdown Musculoskeletal: No Tenderness to Palpation of Joints or Extremities, Arthritic Changes, Muscle Wasting Neurological: Cranial nerves II-XII grossly intact Psych/Mental Status: Normal Affect, Appropriate Current Medications Acetaminophen (Tylenol) 650 mg PO Q6H PRN PRN PRN Reason: Mild Pain (1-3)/Temp > 100.7 F Acetylcysteine (Mucomyst) 800 mg INHALATION Q6H.RT JOYCE Last Admin: 03/11/18 07:07 Dose: Not Given Albuterol Sulfate (Ventolin Aerosols) 2.5 mg INHALATION Q4H PRN PRN PRN Reason: wheezing Last Admin: 03/10/18 01:39 Dose: 2.5 mg Albuterol/Ipratropium (Duoneb) 3 ml INHALATION Q6HWA.RT [facility] Last Admin: 03/11/18 13:10 Dose: 3 ml Atorvastatin Calcium (Lipitor) 80 mg PO QHS [facility] Last Admin: 03/10/18 22:46 Dose: 80 mg Bisacodyl (Dulcolax) 5 mg PO DAILY PRN PRN PRN Reason: Constipation Budesonide (Pulmicort Aerosol) 0.5 mg INHALATION BID.RT [facility] Last Admin: 03/11/18 07:07 Dose: 0.5 mg Carvedilol (Coreg) 6.25 mg PO BID [facility] Last Admin: 03/11/18 08:45 Dose: 6.25 mg Heparin Sodium (Porcine) (Heparin Na) 5,000 unit SC Q8 [facility] Last Admin: 03/11/18 14:06 Dose: 5,000 unit Hydromorphone HCl (Dilaudid Inj) 1 mg IV Q3H PRN PRN PRN Reason: SEVERE PAIN (6-10/10) Last Admin: 03/09/18 14:14 Dose: 1 mg Hydroxychloroquine Sulfate (Plaquenil) 200 mg PO MoWeFr@0800 [facility] Last Admin: 03/09/18 09:16 Dose: 200 mg Hydroxychloroquine Sulfate (Plaquenil) 300 mg PO SuTuThSa@0800 [facility] Last Admin: 03/11/18 08:47 Dose: 300 mg Ceftriaxone Sodium 2 gm/ (Dextrose) 50 mls @ 100 mls/hr IV Q24 [facility] Last Admin: 03/11/18 08:52 Dose: 100 mls/hr Magnesium Hydroxide (Milk Of Magnesia) 30 ml PO DAILY PRN PRN PRN Reason: Constipation Nicotine (Nicoderm Cq (Pbkc)) 21 mg TRANSDERM. DAILY [facility] Last Admin: 03/11/18 08:45 Dose: 21 mg Nutritional Formula (Lactose Free) (Ensure Clear) 120 ml PO 4X/DAY [facility] Last Admin: 03/11/18 13:12 Dose: Not Given Ondansetron HCl (Zofran) 4 mg IV Q6H PRN PRN PRN Reason: NAUSEA/VOMITING Last Admin: 03/08/18 14:55 Dose: 4 mg Oxycodone HCl (Oxyir) 5 - 10 mg PO Q4H PRN PRN PRN Reason: MOD-SEVERE PAIN (4-10/10) Last Admin: 03/07/18 03:45 Dose: 10 mg Pantoprazole Sodium (Protonix) 40 mg PO BID [facility] Last Admin: 03/11/18 08:45 Dose: 40 mg Paroxetine HCl (Paxil) 20 mg PO DAILY [facility] Last Admin: 03/11/18 08:45 Dose: [facility] mg [facility] () [facility] Last Admin: 03/11/18 08:45 Dose: 2 mg Promethazine HCl (Phenergan) 12.5 mg IV Q6H PRN PRN PRN Reason: NAUSEA/VOMITING Last Admin: 03/07/18 11:41 Dose: 12.5 mg Sodium Chloride () 5 - 30 ml IV UD PRN PRN Reason: SALINE FLUSH Last Admin: 03/11/18 00:00 Dose: 10 ml Tamsulosin HCl (Flomax) 0.4 mg PO DAILY@1730 [facility] Last Admin: 03/10/18 18:00 Dose: 0.4 mg Throat Lozenges (Cepacol Sore Throat Lozenge) 1 lozenge MUCOUS MEM Q2H PRN PRN PRN Reason: SORE THROAT Last Admin: 03/08/18 11:09 Dose: 1 lozenge Zolpidem Tartrate (Ambien (Generic)) 5 mg PO QHS PRN PRN PRN Reason: INSOMNIA Medical Necessity - Tobacco Use Smoking Status: Current every day smoker Assessment/Plan All Active Problems (Last Reviewed 03/07/18 @ 01:05 by Bonilla Denise MD) Prostatitis, acute (Acute) Abdominal pain (Acute) Ileus (Acute) Suicidal ideation (Resolved) The patient is a 72 year old M with a significant history including COPD; ischemic cardiomyopathy; pulmonary hypertension and CKD who presented with severe lower abdominal pain; an assessment acute prostatitis made admitted to regular nursing floor for further management 1. Acute prostatitis repeat cultures drawn so far positive for E. coli (please refer to previous visit to review microbiology), pansensitive. Patient did fail outpatient treatment admitted to regular nursing floor was initially started on Bactrim which has been switched to IV Rocephin,started on 03/06/2018. IV antibiotic to be discontinued on 03/12/2018 after completion of 6 days 2. Small bowel ileus as demonstrated on patient CAT scan patient conservatively with bowel rest, pain meds as well as antinausea medication with serial imaging studies ordered subsequent imaging studies demonstrated presence of small bowel ileus. CT abdomen showed dilated small bowel loops. An NG tube was placed with copious amount of NG secretions later on removed. Patient is started on clear liquid diet advanced soft diet. Discontinue IV fluid Dr. Nathan consult reviewed and appreciated. Dr. Chan follow-up reviewed. 3. Chronic systolic heart failure (schemic cardiomyopathy with an ejection fraction of 40%) currently compensated. 4. Rheumatoid arthritis; is on Plaquenil did continue. 5. Hypertension-blood pressure controlled, home medications continued with dose adjustment as needed 6. Dyslipidemia-patient is on statin therapy, continued at home dose 7. COPD without exacerbation did continue with home regimen. Chronic hypoxic respiratory failure: I think patient has advanced COPD with history of 50+ pack years of smoking and chest x-ray finding. He was not on home oxygen but I think his oxygen requirement is chronic or was not diagnosed before As per previous echo in 06/2014, the EF was 40% with 1-2+ TR and RVSP 30 mmHg 8. Coronary artery disease 9. Peripheral vascular disease with previous stents in his iliacs 10. BPH 11. Mild pulmonary hypertension Patient can be discharged tomorrow a.m. after he tolerates soft diet and if Dr. Chan agrees. Clinical Impression(s) from Imaging Studies Acute Abdomen Series 03/06/18 22:45 IMPRESSION: Probable small bowel obstruction.. Recommend CT abdomen and pelvis. Abdomen CT 03/07/18 01:16 IMPRESSION: Findings in keeping with a small bowel obstruction. Small amount of fluid is seen in the cul-de-sac. Chest X-Ray 03/09/18 13:35 IMPRESSION: Hyperinflated lungs suggestive of underlying COPD. Laboratory Results 03/10/18 06:20: Sodium 140, Potassium 3.9, Chloride 106, Carbon Dioxide 27.0, Anion Gap 7, BUN 8, Creatinine 1.18, Estim Creat Clear Calc 39.90, Est GFR (MDRD ) Af Amer 78, Est GFR (MDRD) Non-Af 64, BUN/Creatinine Ratio 6.8 L, Glucose 104 , Calcium 8.4 L Code Visit Inpatient E&M: 92091 Subs Hosp L3
[2018-03-11] MEDS: Tamsulosin HCl 0.4 MG Capsule PO (17:08)
[2018-03-11] MEDS: Atorvastatin Calcium 80 MG Tablet PO (22:47)
[2018-03-12 05:40] VITALS: BP 117/78; PULSE 81; RESP 20; TEMP 37; O2SAT 92
[2018-03-12] MEDS: Heparin Injection (Vial) 5,000 UNIT/ML VIAL 5000 UNIT SC (06:04)
[2018-03-12 07:47] VITALS: PULSE 85; RESP 16; O2SAT 90
[2018-03-12] MEDS: Budesonide Respules 0.5 MG/2 ML AMPUL.NEB. INHALATION (07:47)
[2018-03-12] MEDS: Ipratropium/Albuterol Sulfate 3 ML AMPUL.NEB INHALATION ×2 (07:47→13:34)
--- NOTE | 2018-03-12 07:50 | PN.SURG_ITS ---
Patient Problems: Active and Suspected Problems (Last Reviewed 03/07/18 @ 01:05 by Bonilla Denise MD) Prostatitis, acute (Acute) Abdominal pain (Acute) Ileus (Acute) Subjective: Patient is tolerating a diet and passing flatus. He had 2 bowel movements yesterday. He complains of minor abdominal cramping. - Physical Exam General: Alert, Oriented x3, Cooperative Lungs: Normal air movement Cardiovascular: Regular rate, Regular Rhythm Abdomen: Soft, Non Tender, Non-Distended Vital Signs Temp Pulse Resp BP Pulse Ox 98.6 F 81 20 H 117/78 92 03/12/18 05:40 03/12/18 05:40 03/12/18 05:40 03/12/18 05:40 03/12/18 05:40 Oxygen Flow Rate (L/min) 2 Oxygen Delivery Method Room Air Weight: 111 lb 8.862 oz Intake and Output for Last 24 Hours 03/10/18 03/11/18 03/12/18 23:59 23:59 23:59 Intake Total 3895 / 3895 3044 / 3044 310 / 310 Output Total 2850 / 2850 675 / 675 550 / 550 Balance 1045 / 1045 2369 / 2369 -240 / -240 Medical Necessity - Tobacco Use Smoking Status: Current every day smoker Assessment/Plan All Active Problems (Last Reviewed 03/07/18 @ 01:05 by Bonilla Denise MD) Prostatitis, acute (Acute) Abdominal pain (Acute) Ileus (Acute) Suicidal ideation (Resolved) 72-year-old male with ileus 1. The patient's ileus seem to be resolved. He is tolerating regular diet and had 2 bowel movements yesterday. He is passing flatus today. He has minimal abdominal pain. 2. Okay for DC from my standpoint when okay with the medical team. Follow-up as needed. Tom Nathan MD Pager: [facility] [address] [place] [address], [address] [place] [address] Office:
--- NOTE | 2018-03-12 10:16 | PCM.DC ---
- Discharge Diagnoses Current Active Problems: Current Active and Chronic Problems (Last Reviewed 03/07/18 @ 01:05 by Bonilla Denise MD) Prostatitis, acute (Acute) Abdominal pain (Acute) Ileus (Acute) Reason(s) for Visit for Discharge Instructions: Abdominal pain, nausea and vomiting You will use the following diet at home:: Cardiac Your food should be the consistency of: Regular Your liquids should be the consistency of: Regular/Thin Discharge Activity: Return to Normal Activity Additional Instructions: You are discharged on a regular consistency diet. You should follow-up with the surgeon, Dr. Nathan if you develop abdominal pain, nausea or vomiting. You have completed 6 days of your 14 day required course of antibiotics. Continue to take your Bactrim at home for 8 more days(stop date is 03/20/18 evening). Allergies/Adverse Reactions: Allergies morphine Adverse Reaction (Verified 03/06/18 22:06) Nausea Medications to take at Discharge Multivit-Min/FA/Lycopene/Lut [Centrum Silver Tablet] 1 ea PO DAILY 08/31/13 Paroxetine HCl [Paxil] 20 mg PO DAILY 08/31/13 Atorvastatin Calcium [Lipitor] 80 mg PO QHS #30 tab 09/04/13 Carvedilol [Coreg (Beta Gely)] 6.25 mg PO BID #60 tab 09/04/13 Albuterol Inhaler [Ventolin Hfa] 1 puff INHALATION Q4H PRN PRN 10/03/16 Beclomethasone Diprop Inhaler [Qvar 80 Mcg Inhaler] 1 puff INHALATION BID 10/03/16 prednisone 5 mg tablet 2 mg PO DAILY 06/25/17 Albuterol Aerosols [Ventolin Aerosols] 2.5 mg INHALATION 4X/DAY 09/11/17 Hydroxychloroquine [Plaquenil] 200 mg PO QODAY 09/11/17 Hydroxychloroquine [Plaquenil] 300 mg PO QODAY 09/11/17 Omeprazole [Prilosec] 40 mg PO BID 09/11/17 Tamsulosin HCl [Flomax] 0.4 mg PO DAILY@1730 #30 cap 01/17/18 Smz/Tmp Ds [Bactrim Ds] 1 tab PO BID #14 tab 03/06/18 Ensure Clear 120 ml PO 4X/DAY #100 liquid 03/12/18 Nicotine [Nicoderm Cq] 21 mg TRANSDERM. DAILY #30 patch 03/12/18 The following prescriptions were given: Nicotine [Nicoderm Cq] 21 mg TRANSDERM. DAILY #30 patch Ensure Clear 120 ml PO 4X/DAY #100 liquid Orders to be completed after discharge: Basic Metabolic Profile (BMP) Location: Laboratory Primary Care Physician: Charly Benz MD [Primary Care Provider] - Please follow up with your Primary Care Physician in: within 2 weeks of discharge Test Results: Test results from this visit will be discussed in further detail at your follow-up appointment, if applicable. Please Follow Up With: Tom Nathan MD When: within 2 weeks if needed Proposed Discharge Date: 03/12/18
[2018-03-12] MEDS: predniSONE 1 MG Tablet 2 MG PO (10:18)
[2018-03-12] MEDS: Hydroxychloroquine 200 MG Tablet PO (10:19)
[2018-03-12] MEDS: Carvedilol 6.25 MG Tablet PO (10:19)
[2018-03-12] MEDS: Pantoprazole Sodium 40 MG Tablet PO (10:20)
--- NOTE | 2018-03-12 10:20 | DCINST_ITS ---
- Discharge Diagnoses Current Active Problems: Current Active and Chronic Problems (Last Reviewed 03/07/18 @ 01:05 by Bonilla Denise MD) Prostatitis, acute (Acute) Abdominal pain (Acute) Ileus (Acute) Reason(s) for Visit for Discharge Instructions: Abdominal pain, nausea and vomiting You will use the following diet at home:: Cardiac Your food should be the consistency of: Regular Your liquids should be the consistency of: Regular/Thin Discharge Activity: Return to Normal Activity Additional Instructions: You are discharged on a regular consistency diet. You should follow-up with the surgeon, Dr. Nathan if you develop abdominal pain , nausea or vomiting. You have completed 6 days of your 14 day required course of antibiotics. Continue to take your Bactrim at home for 8 more days(stop date is 03/20/18 evening). Allergies/Adverse Reactions: Allergies morphine Adverse Reaction (Verified 03/06/18 22:06) Nausea Medications to take at Discharge Multivit-Min/FA/Lycopene/Lut [Centrum Silver Tablet] 1 ea PO DAILY 08/31/13 Paroxetine HCl [Paxil] 20 mg PO DAILY 08/31/13 Atorvastatin Calcium [Lipitor] 80 mg PO QHS #30 tab 09/04/13 Carvedilol [Coreg (Beta Gely)] 6.25 mg PO BID #60 tab 09/04/13 Albuterol Inhaler [Ventolin Hfa] 1 puff INHALATION Q4H PRN PRN 10/03/16 Beclomethasone Diprop Inhaler [Qvar 80 Mcg Inhaler] 1 puff INHALATION BID prednisone 5 mg tablet 2 mg PO DAILY 06/25/17 Albuterol Aerosols [Ventolin Aerosols] 2.5 mg INHALATION 4X/DAY 09/11/17 Hydroxychloroquine [Plaquenil] 200 mg PO QODAY 09/11/17 Hydroxychloroquine [Plaquenil] 300 mg PO QODAY 09/11/17 Omeprazole [Prilosec] 40 mg PO BID 09/11/17 Tamsulosin HCl [Flomax] 0.4 mg PO DAILY@1730 #30 cap 01/17/18 Smz/Tmp Ds [Bactrim Ds] 1 tab PO BID #14 tab 03/06/18 Ensure Clear 120 ml PO 4X/DAY #100 liquid 03/12/18 Nicotine [Nicoderm Cq] 21 mg TRANSDERM. DAILY #30 patch 03/12/18 The following prescriptions were given: Nicotine [Nicoderm Cq] 21 mg TRANSDERM. DAILY #30 patch Ensure Clear 120 ml PO 4X/DAY #100 liquid Orders to be completed after discharge: Basic Metabolic Profile (BMP) Location: Laboratory Primary Care Physician: Charly Benz MD [Primary Care Provider] - Please follow up with your Primary Care Physician in: within 2 weeks of discharge Test Results: Test results from this visit will be discussed in further detail at your follow- up appointment, if applicable. Please Follow Up With: Tom Nathan MD When: within 2 weeks if needed Proposed Discharge Date: 03/12/18
--- NOTE | 2018-03-12 10:24 | PCM.DC.SUM ---
Discharge Date and Diagnosis Date of Admission: 03/06/18 Date of Discharge: 03/12/18 - Primary Discharge Diagnosis Active and Suspected Problems (Last Reviewed 03/07/18 @ 01:05 by Bonilla Denise MD) Prostatitis, acute (Acute) Abdominal pain (Acute) Ileus (Acute), small bowel Severe protein energy malnutrition - Secondary Discharge Diagnosis Chronic Problems (Last Reviewed 03/07/18 @ 01:05 by Bonilla Denise MD) Rheumatoid arthritis (Chronic) Ischemic cardiomyopathy (Chronic) Other fdc (current) drug therapy (Chronic) Atherosclerotic heart disease of [place] coronary artery without angina pectoris (Chronic) Nondominant right coronary artery with total proximal occlusion Main coronary artery with 30% distal stenosis Left anterior descending artery with mild diffuse disease Ostial circumflex artery with 80% stenosis in a dominant vessel per [facility] 09/04/2013 Nonrheumatic tricuspid (valve) insufficiency (Chronic) Hyperlipidemia (Chronic) Depression (Chronic) COPD (chronic obstructive pulmonary disease) (Chronic) 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) 25% EF 09/06global diskinesia CKD (chronic kidney disease) stage 3, GFR 30-59 ml/min (Chronic) PVD (peripheral vascular disease) (Chronic) total occlusion of stents in iliacs, per cath 09/06 CÉSAR (acute kidney injury) (Chronic) Hospital Course and Treatment Imaging Results: Clinical Impression(s) from Imaging Studies Acute Abdomen Series 03/06/18 22:45 IMPRESSION: Probable small bowel obstruction.. Recommend CT abdomen and pelvis. Electronically Signed: Boom Campos MD at 23:45 EDT , Service support , Abdomen CT 03/07/18 01:16 IMPRESSION: Findings in keeping with a small bowel obstruction. Small amount of fluid is seen in the cul-de-sac. Electronically Signed: Chandu Patel MD at 12:48 EDT Tel [phone], Service support , KUB X-Ray 03/07/18 17:40 IMPRESSION: Small bowel obstruction versus ileus unchanged. NG tube in the stomach but sidehole is near the GE junction. Recommend advancing 5 to 10 cm. Electronically Signed: Boom Campos MD at 18:53 EDT , Service support , Chest X-Ray 03/09/18 13:35 IMPRESSION: Hyperinflated lungs suggestive of underlying COPD. Electronically Signed: Carolyn Conte MD at 18:12 EDT Tel , Service support , General surgery Operations: None Procedures: None Summary of Care Provided: The patient is a 72 year old M with multiple comorbidities including COPD, pulmonary hypertension, recently diagnosed with acute prostatitis and prescribed Bactrim for which he was yet to take. He presented to the emergency room on the morning of admission with abdominal pain and vomiting and was found to be constipated. He was disimpacted in the emergency room and a Leija catheter was placed. Patient was discharged home and admits to having had multiple bowel movements. He comes back into the emergency room after developing further upper abdominal pain along with nausea and vomiting. Abdominal x-ray and CT of the abdomen and pelvic showed distended loops of bowel. He was managed initially conservatively with IV fluids and bowel rest. General surgery was consulted when his ileus was slow to resolve. An NG tube was placed, which shows copious bilious output. Patient was continued on conservative management with improvement in his general clinical condition. NG tube was finally removed, patient was continued on IV Rocephin and would complete 8 more days of Bactrim. He was found to be severely malnourished and started on dietary supplements for which he was also discharged on. Discharge Diet: Low fat/ Low Cholesterol, 2000 mg Sodium Diet Discharge Activity: Return to Normal Activity Home Medications: Medications to take at Discharge Multivit-Min/FA/Lycopene/Lut [Centrum Silver Tablet] 1 ea PO DAILY 08/31/13 Paroxetine HCl [Paxil] 20 mg PO DAILY 08/31/13 Atorvastatin Calcium [Lipitor] 80 mg PO QHS #30 tab 09/04/13 Carvedilol [Coreg (Beta Gely)] 6.25 mg PO BID #60 tab 09/04/13 Albuterol Inhaler [Ventolin Hfa] 1 puff INHALATION Q4H PRN PRN 10/03/16 Beclomethasone Diprop Inhaler [Qvar 80 Mcg Inhaler] 1 puff INHALATION BID 10/03/16 prednisone 5 mg tablet 2 mg PO DAILY 06/25/17 Albuterol Aerosols [Ventolin Aerosols] 2.5 mg INHALATION 4X/DAY 09/11/17 Hydroxychloroquine [Plaquenil] 200 mg PO QODAY 09/11/17 Hydroxychloroquine [Plaquenil] 300 mg PO QODAY 09/11/17 Omeprazole [Prilosec] 40 mg PO BID 09/11/17 Tamsulosin HCl [Flomax] 0.4 mg PO DAILY@1730 #30 cap 01/17/18 Smz/Tmp Ds [Bactrim Ds] 1 tab PO BID #14 tab 03/06/18 Ensure Clear 120 ml PO 4X/DAY #100 liquid 03/12/18 Nicotine [Nicoderm Cq] 21 mg TRANSDERM. DAILY #30 patch 03/12/18 Following Prescrptions Were Given to Patient: Nicotine [Nicoderm Cq] 21 mg TRANSDERM. DAILY #30 patch Ensure Clear 120 ml PO 4X/DAY #100 liquid Primary Care Physician: Charly Benz MD [Primary Care Provider] - Please follow up with your Primary Care Physician in: within 2 weeks of discharge Please Follow Up With: Tom Nathan MD When: within 2 weeks if needed Disposition: Home Minutes spent on discharge:: 40 Patient Condition:: Stable Medical Necessity - Tobacco Use Smoking Status: Current every day smoker Tobacco Use: Cigarettes Meaningful Use Info Meaningful Use Diagnoses (Choose all that apply): None applicable Code Visit Inpatient E&M: 01806 Disch Hosp
[2018-03-12 10:48] VITALS: BP 110/72; PULSE 90; RESP 18; TEMP 37.1; O2SAT 96
[2018-03-12 11:40] VITALS: BP 110/71; PULSE 81; RESP 18; TEMP 36.7; O2SAT 98
--- NOTE | 2018-03-12 11:47 | CASEMGMT ---
LINDA OLIVA followed up with patient regarding discharge plans. Patient denies need for HHC or therapy at this time. Hospitalist updated regarding patient denying HHC or therapy. LINDA OLIVA instructed patient that should he change his mind regarding HHC, that he can follow-up with his PCP. CM will continue to follow this patient and plan for a safe discharge.
[2018-03-12 13:34] VITALS: PULSE 75; RESP 16; O2SAT 94
--- NOTE | 2018-03-14 15:59 | CASEMGMT ---
LINDA CM Discharge Follow-up Phone Call: JOAN: Rosa Strata: 4 Call Date: 03/14/18 Discharge Date: 03/12/18 Time of Call: 1600 Duration: 1 min Admitting Diagnosis: Prostatitis RN PJ attempted follow-up phone call after recent hospitalization. No answer, voice message left with return contact information. Follow-up appts scheduled prior to discharge.
== END 2018-03-12 14:35 | disposition home or self-care (01) | DRG 388 ==
LOC: ED 23:30 → MS3 23:47
PROVIDERS: Internal Medicine; Physician Assistant; Surgery; Admitting Provider Hospitalist; Emergency Provider Emergency Medicine; Family Provider Family Medicine; PCP Family Medicine; Visit Provider Internal Medicine
DX: K56.7 Ileus, unspecified (principal); E43 Unspecified severe protein-calorie malnutrition; N41.0 Acute prostatitis; Z68.1 Body mass index [BMI] 19.9 or less, adult; I50.22 Chronic systolic (congestive) heart failure; I13.0 Hypertensive heart and chronic kidney disease with heart failure and stage 1 through stage 4 chronic kidney disease, or unspecified chronic kidney disease; N39.0 Urinary tract infection, site not specified; F17.210 Nicotine dependence, cigarettes, uncomplicated; M06.9 Rheumatoid arthritis, unspecified; E78.5 Hyperlipidemia, unspecified; I25.10 Atherosclerotic heart disease of native coronary artery without angina pectoris; I25.5 Ischemic cardiomyopathy; J44.9 Chronic obstructive pulmonary disease, unspecified; I27.20 Pulmonary hypertension, unspecified; N18.3 Chronic kidney disease, stage 3 (moderate); I73.9 Peripheral vascular disease, unspecified; N40.0 Benign prostatic hyperplasia without lower urinary tract symptoms; R33.9 Retention of urine, unspecified; F32.9 Major depressive disorder, single episode, unspecified
CPT/HCPCS: 36415; 51702; 71046; 74018; 74022; 74176; 80048; 80076; 81001; 82378; 83605; 83690; 83735; 84100; 85025; 85027; 86301; 87086; 87088; 87186; 94640; 97110; 97116; 97162; 97166; 97530; 97535; 97802; 99285; 99406; J7030; A4216; J0696; J2405

== ENCOUNTER → 2018-03-27 12:45 | Outpatient (CLI) | payer MEDICARE, BC, SELFPAY ==
[2018-03-27 13:34] LABS: Anion Gap 6 (5-15); BUN 17 mg/dL (7-18); BUN/Creat Ratio 12.6 RATIO (10-20); Calcium,Total 8.9 mg/dL (8.5-10.1); Chloride 106 mmol/L (98-107); Creatinine, Serum 1.35 mg/dL (0.70-1.30); EST Glomerular Filtration Rate 55 mL/min (>60); Est Glom Filt Rate - Afr Amer 67 mL/min (>60); Glucose 90 mg/dL (74-106); Potassium 4.2 mmol/L (3.5-5.1); Sodium Level 141 mmol/L (136-145)
== END ==
PROVIDERS: Family Provider Family Medicine; PCP Family Medicine; Referring Provider Internal Medicine; Visit Provider Internal Medicine
DX: N17.9 Acute kidney failure, unspecified (principal)
CPT/HCPCS: 36415; 80048

== ENCOUNTER 2018-09-11 14:20 | Inpatient (IN) | payer MEDICARE, BC, SELFPAY ==
[2018-09-11] VITALS (12 sets, daily range): BP systolic 111–160; BP diastolic 58–86; PULSE 66–120; RESP 18–29; TEMP 37.2–39.5; O2SAT 94–97; BMI 18.6; BMI 17.6
--- NOTE | 2018-09-11 14:29 | RAD_ITS ---
STUDY: X-RAY CHEST REASON FOR EXAM: Male, 72 years old. increased shortness of breath, hx copd TECHNIQUE: Single AP portable view of the chest. COMPARISON: None. FINDINGS: There is hyperinflation of the lungs consistent with chronic obstructive lung disease (COPD). There is no demonstrated pleural abnormality. Normal size heart. Normal mediastinum and anitha. Normal visualized pulmonary arteries. There is atherosclerotic calcification of the aortic arch with tortuosity. Normal visualized thoracic spine. There is degenerative osteoarthritis of the bilateral shoulders. There is no demonstrated abnormality of the visualized soft tissue structures of the upper abdomen. RAD/Chest 1 View (Portable) IMPRESSION: There is hyperinflation of the lungs consistent with chronic obstructive lung disease (COPD). Electronically Signed: Russell Vann, at 15:19 EDT Tel , Service support ,
[2018-09-11 14:54] LABS: Absolute Lymphocyte Count 0.57 X10^3/ul (0.83-4.51); Absolute Neutrophil Count 6.5 X10^3/uL (2.0-7.7); Basophil# 0.02 X10^3/uL; Basophil% 0.3 % (0-1); Differential Indicated SCAN CRITERIA MET; Eosinophil# 0.12 X10^3/uL; Eosinophils% 1.6 % (0-5); Hematocrit 38.9 % (40-54); Lymphocyte # 0.57 X10^3/ul (4.0); Lymphocyte % 7.5 % (19-41); Mean Corp Hgb Conc 33.4 g/gl (32-36); Mean Corpuscular Hgb 32.3 pg (27.0-32.0); Mean Corpuscular Volume 96.5 fL (80-94); Mean Platelet Vol. 10.5 fl (6.2-12.0); Monocyte# 0.37 X10^3/uL; Monocyte% 4.9 % (0-10); Neutrophil # 6.53 X10^3/uL (2.7-7.7); Neutrophil % 85.6 % (47-70); POSITIVE COUNT NO; POSITIVE DIFFERENTIAL YES; POSITIVE MORPHOLOGY NO; Platelet Count 170 K/mm3 (150-450); RBC Distribution Width CV 13.3 % (11.6-14.6); RBC Distribution Width SD 46.9 fl (35.1-43.9); Red Blood Count 4.03 M/mm3 (4.6-6.2); White Blood Count 7.6 K/mm3 (4.4-11.0)
[2018-09-11 15:06] LABS: AST(SGOT) 30 U/L (15-37); Alanine Aminotransfer ALT/SGPT 22 U/L (16-61); Albumin, Serum 3.6 g/dL (3.2-5.0); Alkaline Phosphatase 134 U/L (45-117); Anion Gap 5 (5-15); BUN 19 mg/dL (7-18); BUN/Creat Ratio 12.1 RATIO (10-20); Calcium,Total 8.9 mg/dL (8.5-10.1); Chloride 104 mmol/L (98-107); Creatinine, Serum 1.57 mg/dL (0.70-1.30); EST Glomerular Filtration Rate 46 mL/min (>60); Est Glom Filt Rate - Afr Amer 56 mL/min (>60); Estimated Creatinine Clearance 31.99 ml/min; Globulin 3.7 g/dL (2.2-4.2); Glucose 98 mg/dL (74-106); Potassium 4.2 mmol/L (3.5-5.1); Protein, Total 7.3 g/dL (6.4-8.2); Sodium Level 137 mmol/L (136-145)
[2018-09-11 15:12] LABS: Differential Comment SCANNED; Lactic Acid 1.8 mmol/L (0.4-2.0)
[2018-09-11] MEDS: Acetaminophen 500 MG Tablet 1000 MG PO (15:18)
[2018-09-11] MEDS: MethylPREDNISolone 125 MG/2 ML Vial IV (15:19)
[2018-09-11] MEDS: Albuterol 2.5 MG/3 ML VIAL.NEB. INHALATION ×2 (15:21)
--- NOTE | 2018-09-11 15:42 | ED.VIS.GEN ---
History of Present Illness Chief Complaint: Shortness of Breath Informant: Patient Onset: Days - 2 Context: Gradual Onset Timing: Continuous Quality: wheezing Location: chest Current Severity: Moderate Maximum Severity: Severe Worsened by: coughing Relieved by: nebulizer treatments Associated Symptoms: prod cough, subj fevers Narrative: History of COPD, feels like it is worse in the last couple days. Better with nebulizer treatments at home and with 1 with EMS on the way here. No chest pains. No GI problems. No edema in his legs. No history of heart stents, but he has peripheral arterial disease with stents. Subjective fevers. States he had the flu vaccine this year. 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 Comment: 25% EF 09/06global diskinesia (2) Atherosclerotic heart disease of [place] coronary artery without angina pectoris Status: Chronic Comment: Nondominant right coronary artery with total proximal occlusion Main coronary artery with 30% distal stenosis Left anterior descending artery with mild diffuse disease Ostial circumflex artery with 80% stenosis in a dominant vessel per [facility] 09/04/2013 (3) CKD (chronic kidney disease) stage 3, GFR 30-59 ml/min Status: Chronic (4) COPD (chronic obstructive pulmonary disease) Status: Chronic (5) Depression Status: Chronic (6) Hyperlipidemia Status: Chronic (7) Ischemic cardiomyopathy Status: Chronic (8) Nonrheumatic tricuspid (valve) insufficiency Status: Chronic (9) PVD (peripheral vascular disease) Status: Chronic Comment: total occlusion of stents in iliacs, per cath 09/06 (10) Rheumatoid arthritis Status: Chronic Past Medical History - Allergies and Home Meds Allergies/Adverse Reactions: Allergies morphine Adverse Reaction (Verified 09/11/18 14:28) Nausea Primary Care Physician: Charly Benz MD [Primary Care Provider] - Surgical History: adenoidectomy, appendectomy, tonsillectomy, - - Aortic aneurysm repair, left inguinal hernia repair, hemorrhoidectomy Smoking Status: Former smoker Drugs: None - Family History Offspring Family History: Family History (Last Reviewed 03/07/18 @ 01:06 by Bonilla Denise MD) Father CAD (coronary artery disease) Family History: Reports: No pertinent history Maternal Family History: Family History (Last Reviewed 03/07/18 @ 01:06 by Bonilla Denise MD) Father CAD (coronary artery disease) Family History: Reports: No pertinent history Paternal Family History: Family History (Last Reviewed 03/07/18 @ 01:06 by Bonilla Denise MD) Father CAD (coronary artery disease) Family History: Reports: No pertinent history Sibling Family History: Family History (Last Reviewed 03/07/18 @ 01:06 by Bonilla Denise MD) Father CAD (coronary artery disease) Family History: Reports: No pertinent history Review of Systems General: Reports: Fever, Malaise, Subjective. Denies: Chills Eyes: Denies: Visual changes - bilaterally, Diplopia ENT: Denies: Rhinorrhea, Sore throat Cardiovascular: Denies: Chest pain, Palpitations Respiratory: Reports: Dyspnea, Cough, Sputum Gastrointestinal: Denies: Abdominal pain, Nausea, Vomiting, Diarrhea, Melena, Hematochezia Genitourinary: Denies: Dysuria, Hematuria, Frequency Musculoskeletal: Denies: Back pain, Extremity Pain Skin: Denies: Rash, Wounds Neurological: Denies: Headache, Weakness, Numbness Physical Exam Vital Signs/Narrative: Vital Signs Temp Pulse Resp BP Pulse Ox 09/11/18 15:41 102.3 F H 110 H 24 H 147/79 H 95 09/11/18 15:20 110 H 29 H 95 09/11/18 14:31 24 H 96 09/11/18 14:21 103.1 F H 120 H 24 H 160/86 H 96 Inital Vital Signs reviewed: Yes General: Well nourished, Well developed, Acute Distress - mild respiratory Head: Normocephalic, Atraumatic Eyes: Perrl, EOMI ENT: Moist mucous membranes, No rhinorrhea, Nasal congestion Neck: Supple, Nontender, No lymphadenopathy, No JVD Cardiovascular: Regular rate, Regular rhythm, No murmurs Respiratory: Chest nontender, Wheezing. Negative for: No distress - mild resp distress Abdomen: Soft, Nontender, Nondistended, Normal bowel sounds Back: Nontender, Normal Inspection Extremities: Nontender, No edema. Negative for: Calf Tenderness Skin: Normal color, No rash Neurological: Alert, Oriented x3, Cranial nerves II-XII grossly intact, Normal Strength, Normal Sensation Psychological: Normal affect, Normal Mood Diagnostic/Tx/Re-eval Impressions Chest X-Ray 09/11/18 14:29 IMPRESSION: There is hyperinflation of the lungs consistent with chronic obstructive lung disease (COPD). Electronically Signed: Russell Vann, at 15:19 EDT Tel , Service support , 09/11/18 14:29 Chest 1 View (Portable) [RAD] Stat 09/11/18 15:21 Mucosa - Nasopharyngeal Influenza Types A,B Direct FA ([facility]) - Final Laboratory Results 09/11/18 09/11/18 09/11/18 14:40 14:40 14:40 WBC 7.6 RBC 4.03 L Hgb 13.0 Hct 38.9 L MCV 96.5 H MCH 32.3 H MCHC 33.4 RDW 13.3 RDW Differential 46.9 H Plt Count 170 MPV 10.5 Immature Gran % (Auto) 0.100 Neut % (Auto) 85.6 H Lymph % (Auto) 7.5 L [place] % (Auto) 4.9 Eos % (Auto) 1.6 Baso % (Auto) 0.3 Absolute Neuts (auto) 6.5 Absolute Lymphs (auto) 0.57 L Total Counted Not Reportable Differential Comment SCANNED Sodium 137 Potassium 4.2 Chloride 104 Carbon Dioxide 28.0 Anion Gap 5 BUN 19 H Creatinine 1.57 H Estim Creat Clear Calc 31.99 Est GFR (MDRD) Af Amer 56 L Est GFR (MDRD) Non-Af 46 L BUN/Creatinine Ratio 12.1 Glucose 98 Lactic Acid 1.8 Calcium 8.9 Total Bilirubin 0.60 AST 30 ALT 22 Alkaline Phosphatase 134 H Total Protein 7.3 Albumin 3.6 Globulin 3.7 Albumin/Globulin Ratio 1.0 - Rhythm Strip Rhythm Strip: Sinus Tach Rate: 120 Ectopy: None - Medical Decision Making Patient was given Tylenol for his temperature of 103.1. His influenza is negative. Chest x-ray shows no infiltrates. His breathing is improved after nebulizer treatments but he is still tachypneic at rest, and wheezy. Given Solu-Medrol as well as azithromycin. Plan is to admit for further treatment and evaluation. His blood pressure has remained stable. ED Disposition - Plan for ED Patient: Disposition: Acute Care Hospital [facility] Diagnosis: Sepsis, COPD exacerbation, Acute bronchitis, Acute respiratory insufficiency Referrals: Charly Benz MD [Primary Care Provider] -
--- NOTE | 2018-09-11 15:45 | ED.DCSUM_ITS ---
History of Present Illness Chief Complaint: Shortness of Breath Informant: Patient Onset: Days - 2 Context: Gradual Onset Timing: Continuous Quality: wheezing Location: chest Current Severity: Moderate Maximum Severity: Severe Worsened by: coughing Relieved by: nebulizer treatments Associated Symptoms: prod cough, subj fevers Narrative: History of COPD, feels like it is worse in the last couple days. Better with nebulizer treatments at home and with 1 with EMS on the way here. No chest pains. No GI problems. No edema in his legs. No history of heart stents, but he has peripheral arterial disease with stents. Subjective fevers. States he had the flu vaccine this year. 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 Comment: 25% EF 09/06global diskinesia (2) Atherosclerotic heart disease of [place] coronary artery without angina pectoris Status: Chronic Comment: Nondominant right coronary artery with total proximal occlusion Main coronary artery with 30% distal stenosis Left anterior descending artery with mild diffuse disease Ostial circumflex artery with 80% stenosis in a dominant vessel per [facility] 09/04/2013 (3) CKD (chronic kidney disease) stage 3, GFR 30-59 ml/min Status: Chronic (4) COPD (chronic obstructive pulmonary disease) Status: Chronic (5) Depression Status: Chronic (6) Hyperlipidemia Status: Chronic (7) Ischemic cardiomyopathy Status: Chronic (8) Nonrheumatic tricuspid (valve) insufficiency Status: Chronic (9) PVD (peripheral vascular disease) Status: Chronic Comment: total occlusion of stents in iliacs, per cath 09/06 (10) Rheumatoid arthritis Status: Chronic Past Medical History - Allergies and Home Meds Allergies/Adverse Reactions: Allergies morphine Adverse Reaction (Verified 09/11/18 14:28) Nausea Primary Care Physician: Charly Benz MD [Primary Care Provider] - Surgical History: adenoidectomy, appendectomy, tonsillectomy, - - Aortic aneurysm repair, left inguinal hernia repair, hemorrhoidectomy Smoking Status: Former smoker Drugs: None - Family History Offspring Family History: Family History (Last Reviewed 03/07/18 @ 01:06 by Bonilla Denise MD) Father CAD (coronary artery disease) Family History: Reports: No pertinent history Maternal Family History: Family History (Last Reviewed 03/07/18 @ 01:06 by Bonilla Denise MD) Father CAD (coronary artery disease) Family History: Reports: No pertinent history Paternal Family History: Family History (Last Reviewed 03/07/18 @ 01:06 by Bonilla Denise MD) Father CAD (coronary artery disease) Family History: Reports: No pertinent history Sibling Family History: Family History (Last Reviewed 03/07/18 @ 01:06 by Bonilla Denise MD) Father CAD (coronary artery disease) Family History: Reports: No pertinent history Review of Systems General: Reports: Fever, Malaise, Subjective. Denies: Chills Eyes: Denies: Visual changes - bilaterally, Diplopia ENT: Denies: Rhinorrhea, Sore throat Cardiovascular: Denies: Chest pain, Palpitations Respiratory: Reports: Dyspnea, Cough, Sputum Gastrointestinal: Denies: Abdominal pain, Nausea, Vomiting, Diarrhea, Melena, Hematochezia Genitourinary: Denies: Dysuria, Hematuria, Frequency Musculoskeletal: Denies: Back pain, Extremity Pain Skin: Denies: Rash, Wounds Neurological: Denies: Headache, Weakness, Numbness Physical Exam Vital Signs/Narrative: Vital Signs Temp Pulse Resp BP Pulse Ox 09/11/18 15:41 102.3 F H 110 H 24 H 147/79 H 95 09/11/18 15:20 110 H 29 H 95 09/11/18 14:31 24 H 96 09/11/18 14:21 103.1 F H 120 H 24 H 160/86 H 96 Inital Vital Signs reviewed: Yes General: Well nourished, Well developed, Acute Distress - mild respiratory Head: Normocephalic, Atraumatic Eyes: Perrl, EOMI ENT: Moist mucous membranes, No rhinorrhea, Nasal congestion Neck: Supple, Nontender, No lymphadenopathy, No JVD Cardiovascular: Regular rate, Regular rhythm, No murmurs Respiratory: Chest nontender, Wheezing. Negative for: No distress - mild resp distress Abdomen: Soft, Nontender, Nondistended, Normal bowel sounds Back: Nontender, Normal Inspection Extremities: Nontender, No edema. Negative for: Calf Tenderness Skin: Normal color, No rash Neurological: Alert, Oriented x3, Cranial nerves II-XII grossly intact, Normal Strength, Normal Sensation Psychological: Normal affect, Normal Mood Diagnostic/Tx/Re-eval Impressions Chest X-Ray 09/11/18 14:29 IMPRESSION: There is hyperinflation of the lungs consistent with chronic obstructive lung disease (COPD). Electronically Signed: Russell Vann, at 15:19 EDT Tel , Service support , 09/11/18 14:29 Chest 1 View (Portable) [RAD] Stat 09/11/18 15:21 Mucosa - Nasopharyngeal Influenza Types A,B Direct FA ([facility]) - Final Laboratory Results 09/11/18 09/11/18 09/11/18 14:40 14:40 14:40 WBC 7.6 RBC 4.03 L Hgb 13.0 Hct 38.9 L MCV 96.5 H MCH 32.3 H MCHC 33.4 RDW 13.3 RDW Differential 46.9 H Plt Count 170 MPV 10.5 Immature Gran % (Auto) 0.100 Neut % (Auto) 85.6 H Lymph % (Auto) 7.5 L [place] % (Auto) 4.9 Eos % (Auto) 1.6 Baso % (Auto) 0.3 Absolute Neuts (auto) 6.5 Absolute Lymphs (auto) 0.57 L Total Counted Not Reportable Differential Comment SCANNED Sodium 137 Potassium 4.2 Chloride 104 Carbon Dioxide 28.0 Anion Gap 5 BUN 19 H Creatinine 1.57 H Estim Creat Clear Calc 31.99 Est GFR (MDRD) Af Amer 56 L Est GFR (MDRD) Non-Af 46 L BUN/Creatinine Ratio 12.1 Glucose 98 Lactic Acid 1.8 Calcium 8.9 Total Bilirubin 0.60 AST 30 ALT 22 Alkaline Phosphatase 134 H Total Protein 7.3 Albumin 3.6 Globulin 3.7 Albumin/Globulin Ratio 1.0 - Rhythm Strip Rhythm Strip: Sinus Tach Rate: 120 Ectopy: None - Medical Decision Making Patient was given Tylenol for his temperature of 103.1. His influenza is negative. Chest x-ray shows no infiltrates. His breathing is improved after nebulizer treatments but he is still tachypneic at rest, and wheezy. Given Solu-Medrol as well as azithromycin. Plan is to admit for further treatment and evaluation. His blood pressure has remained stable. ED Disposition - Plan for ED Patient: Disposition: Acute Care Hospital [facility] Diagnosis: Sepsis, COPD exacerbation, Acute bronchitis, Acute respiratory insufficiency Referrals: Charly Benz MD [Primary Care Provider] -
[2018-09-11] MEDS: Azithromycin 250 MG Tablet 500 MG PO (16:32)
[2018-09-11 16:57] LABS: Bacteria 0 SEEN /hpf (None Seen); Mucous, Urine 0 SEEN /hpf (<or=2+); White Blood Cells 0 SEEN /hpf (0-5)
[2018-09-11 17:06] LABS: Color, Urine Yellow (Yellow); Glucose, Dipstick Normal (Normal); Ketone-Dipstick Negative (Negative); Leukocyte Esterase-Dipstick Negative /ul (Negative); Nitrite-Dipstick Negative (Negative); Occult Blood-Urine 10 /ul (Negative); Protein-Dipstick 15 mg/dl (Negative); Urine Bilirubin Dipstick Negative (Negative); Urine Clarity Clear (Clear); Urine Urobilinogen Normal (Normal); Urine pH 6.5 (5.0 - 8.0)
[2018-09-11 17:11] LABS: Red Blood Cells-Urine 0-5 SEEN /hpf (0-5); Squamous Epithelial Cells - UA 0-5 SEEN /hpf (0-5)
--- NOTE | 2018-09-11 17:15 | PCM.HP.STD ---
Problem List (1) Rheumatoid arthritis Status: Chronic (2) COPD exacerbation Status: Acute (3) Acute bronchitis Status: Acute (4) Acute respiratory insufficiency Status: Acute (5) Nonrheumatic tricuspid (valve) insufficiency Status: Chronic (6) Hyperlipidemia Status: Chronic (7) Depression Status: Chronic (8) Acute combined systolic and diastolic heart failure Status: Chronic Comment: 25% EF 3/14global diskinesia (9) CKD (chronic kidney disease) stage 3, GFR 30-59 ml/min Status: Chronic History of Present Illness Date of Admission: 09/11/18 Chief Complaint: SOB The patient is a 72 year old M with a PMH as below presents with 3-day history of shortness of breath. He does take inhalers at home which he has been using but did not go see his primary care doctor. He has noticed worsening wheezing as well as dyspnea on exertion. Per the daughter, he tends to wait into the last possible moment to come to the ER. In the ER he was found to be tachypneic and tachycardic, flu was negative and he was given steroids and a nebulizer treatment. He was found to be febrile and a UA was obtained which was negative even though he was complaining of dysuria for the last couple of days as well. Chest x-ray in the ER showed hyperexpansion, but otherwise no pneumonia, and no leukocytosis. He is not on oxygen during the day, but in the ER he was found to need 2 L nasal cannula to maintain his oxygen saturations. He does wear 3 L nasal cannula at night. Past Medical History Past Medical History (Chronic Problems): Chronic Problems (Last Reviewed 03/07/18 @ 01:05 by Bonilla Denise MD) Rheumatoid arthritis (Chronic) Ischemic cardiomyopathy (Chronic) Other custodial (current) drug therapy (Chronic) Atherosclerotic heart disease of [place] coronary artery without angina pectoris (Chronic) Nondominant right coronary artery with total proximal occlusion Main coronary artery with 30% distal stenosis Left anterior descending artery with mild diffuse disease Ostial circumflex artery with 80% stenosis in a dominant vessel per [facility] 09/04/2013 Nonrheumatic tricuspid (valve) insufficiency (Chronic) Hyperlipidemia (Chronic) Depression (Chronic) COPD (chronic obstructive pulmonary disease) (Chronic) 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) 25% EF 3/14global diskinesia CKD (chronic kidney disease) stage 3, GFR 30-59 ml/min (Chronic) PVD (peripheral vascular disease) (Chronic) total occlusion of stents in iliacs, per cath 09/06 CÉSAR (acute kidney injury) (Chronic) Medical History: Medical History (Last Reviewed 03/07/18 @ 01:05 by Bonilla Denise MD) Ischemic cardiomyopathy (Chronic) I25.5 Atherosclerotic heart disease of [place] coronary artery without angina pectoris (Chronic) I25.10 Nondominant right coronary artery with total proximal occlusion Main coronary artery with 30% distal stenosis Left anterior descending artery with mild diffuse disease Ostial circumflex artery with 80% stenosis in a dominant vessel per [facility] 09/04/2013 Nonrheumatic tricuspid (valve) insufficiency (Chronic) I36.1 Hyperlipidemia (Chronic) E78.5 Depression (Chronic) F32.9 COPD (chronic obstructive pulmonary disease) (Chronic) J44.9 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) I50.41 25% EF 09/06global diskinesia CKD (chronic kidney disease) stage 3, GFR 30-59 ml/min (Chronic) PVD (peripheral vascular disease) (Chronic) I73.9 total occlusion of stents in iliacs, per cath 09/06 Allergies morphine Adverse Reaction (Verified 09/11/18 14:28) Nausea Home Medications: Ambulatory Orders Medication Instructions Recorded Paroxetine [Paxil] 20 mg PO DAILY 08/31/13 Atorvastatin Calcium [Lipitor] 80 mg PO QHS #30 tab 09/04/13 Albuterol Inhaler [Ventolin Hfa] 1 puff INHALATION Q4H PRN PRN 10/03/16 Beclomethasone Diprop Inhaler 1 puff INHALATION BID 10/03/16 [Qvar 80 Mcg Inhaler] Albuterol Aerosols [Ventolin 2.5 mg INHALATION 4X/DAY PRN 09/11/17 Aerosols] Hydroxychloroquine [Plaquenil] 200 mg PO MOWEFR 09/11/17 Hydroxychloroquine [Plaquenil] 300 mg PO SUTUTHSA 09/11/17 Omeprazole [Prilosec] 40 mg PO BID 09/11/17 Carvedilol [Coreg (Beta Gely)] 6.25 mg PO BID 09/11/18 Ipratropium/Albuterol Sulfate 3 ml INHALATION TID PRN 09/11/18 [Duoneb] Multivit-Min/FA/Lycopen/Lutein 1 tab PO DAILY 09/11/18 [Centrum Silver Men Tablet] Prednisone 1 mg PO DAILY 09/11/18 Tamsulosin HCl [Flomax] 0.4 mg PO DAILY@1730 09/11/18 Surgical History: Surgical History (Last Reviewed 03/07/18 @ 01:05 by Bonilla Denise MD) History of right and left heart catheterization Z98.890 09/02/2016 right, with attempted left; 09/04/16 left heart cath per Dr. Sotelo [facility] Surgical History: adenoidectomy, appendectomy, tonsillectomy, - - Aortic aneurysm repair, left inguinal hernia repair, hemorrhoidectomy Smoking Status: Former smoker Tobacco Use: Cigarettes Drugs: None - *Family History Offspring Family History: Family History (Last Reviewed 03/07/18 @ 01:06 by Bonilla Denise MD) Father CAD (coronary artery disease) History Items: No pertinent history Maternal Family History: Family History (Last Reviewed 03/07/18 @ 01:06 by Bonilla Denise MD) Father CAD (coronary artery disease) History Items: No pertinent history Paternal Family History: Family History (Last Reviewed 03/07/18 @ 01:06 by Bonilla Denise MD) Father CAD (coronary artery disease) History Items: No pertinent history Sibling Family History: Family History (Last Reviewed 03/07/18 @ 01:06 by Bonilla Denise MD) Father CAD (coronary artery disease) History Items: No pertinent history Review of Systems Constitutional: Reports: Fever. Denies: Chills, Weight Change HEENT: Denies: Head Aches, Sinus Congestion, Sinus Drainage Cardiovascular: Denies: Chest Pain, Palpitations Respiratory: Reports: Shortness of Breath. Denies: Cough, Shortness of breath at rest, Sputum production Gastrointestinal: Denies: Abdominal Pain, Nausea, Vomiting Genitourinary: Denies: Dysuria Musculoskeletal: Denies: Joint Pain, Joint Tenderness Skin: Denies: Rash, Wounds Neurological: Denies: Numbness, Tingling, Focal weakness Psychiatric: Denies: Anxiety, Depression Hematologic/ Lymphatic: Denies: Easy Bruising, Easy Bleeding VTE Information - Inpt Only VTE Present on Admission: No Patient Problems: Active and Suspected Problems (Last Reviewed 03/07/18 @ 01:05 by Bonilla Denise MD) Sepsis (Acute) COPD exacerbation (Acute) Acute bronchitis (Acute) Acute respiratory insufficiency (Acute) - Physical Exam General: Alert, Oriented x3, Cooperative, No apparent distress HEENT: Atraumatic, PERRLA, EOMI, Normocephalic Oral: Dry Mucosa Neck: Supple, No JVD, Trachea Midline Lungs: Diminished, Rhonchi, Tachypneic, Wheezes, - - Poor air movement Cardiovascular: Regular Rhythm, Normal S1, Normal S2, No murmurs, Tachycardic Abdomen: Soft, Non Tender, Non-Distended, No Hepato-splenomegaly Extremities: No edema, Capillary Refill Less than 3 Seconds Skin: No rashes, No breakdown Neurological: Neuro grossly intact, Sensory exam intact to light touch and pain Psych/Mental Status: Normal Affect, Appropriate Vital Signs Temp Pulse Resp BP Pulse Ox 102.8 F H 107 H 24 H 133/76 H 94 09/11/18 16:47 09/11/18 16:47 09/11/18 16:47 09/11/18 16:47 09/11/18 16:47 Oxygen Flow Rate (L/min) 2 Oxygen Delivery Method Nasal Cannula Weight: 119 lb Body Mass Index (BMI) 18.6 Microbiology Past 72 Hours 09/11/18 15:21 Influenza Types A,B Direct FA ([facility]) - Final Mucosa - Nasopharyngeal Laboratory Tests Past 24 Hrs 09/11/18 09/11/18 09/11/18 14:40 14:40 14:40 WBC 7.6 RBC 4.03 L Hgb 13.0 Hct 38.9 L MCV 96.5 H MCH 32.3 H MCHC 33.4 RDW 13.3 RDW Differential 46.9 H Plt Count 170 MPV 10.5 Immature Gran % (Auto) 0.100 Neut % (Auto) 85.6 H Lymph % (Auto) 7.5 L [place] % (Auto) 4.9 Eos % (Auto) 1.6 Baso % (Auto) 0.3 Absolute Neuts (auto) 6.5 Absolute Lymphs (auto) 0.57 L Total Counted Not Reportable Differential Comment SCANNED Sodium 137 Potassium 4.2 Chloride 104 Carbon Dioxide 28.0 Anion Gap 5 BUN 19 H Creatinine 1.57 H Estim Creat Clear Calc 31.99 Est GFR (MDRD) Af Amer 56 L Est GFR (MDRD) Non-Af 46 L BUN/Creatinine Ratio 12.1 Glucose 98 Lactic Acid 1.8 Calcium 8.9 Total Bilirubin 0.60 AST 30 ALT 22 Alkaline Phosphatase 134 H Total Protein 7.3 Albumin 3.6 Globulin 3.7 Albumin/Globulin Ratio 1.0 Urine Color Urine Clarity Urine pH Ur Specific [place] Urine Protein Urine Glucose (UA) Urine Ketones Urine Occult Blood Urine Nitrite Urine Bilirubin Urine Urobilinogen Ur Leukocyte Esterase Urine RBC Urine WBC Ur Squamous Epith Cells Urine Bacteria Urine Mucus 09/11/18 16:50 WBC RBC Hgb Hct MCV MCH MCHC RDW RDW Differential Plt Count MPV Immature Gran % (Auto) Neut % (Auto) Lymph % (Auto) [place] % (Auto) Eos % (Auto) Baso % (Auto) Absolute Neuts (auto) Absolute Lymphs (auto) Total Counted Differential Comment Sodium Potassium Chloride Carbon Dioxide Anion Gap BUN Creatinine Estim Creat Clear Calc Est GFR (MDRD) Af Amer Est GFR (MDRD) Non-Af BUN/Creatinine Ratio Glucose Lactic Acid Calcium Total Bilirubin AST ALT Alkaline Phosphatase Total Protein Albumin Globulin Albumin/Globulin Ratio Urine Color Yellow Urine Clarity Clear Urine pH 6.5 Ur Specific [place] 1.010 Urine Protein 15 H Urine Glucose (UA) Normal Urine Ketones Negative Urine Occult Blood 10 H Urine Nitrite Negative Urine Bilirubin Negative Urine Urobilinogen Normal Ur Leukocyte Esterase Negative Urine RBC 0-5 SEEN Urine WBC 0 SEEN Ur Squamous Epith Cells 0-5 SEEN Urine Bacteria 0 SEEN Urine Mucus 0 SEEN Assessment/Plan All Active Problems (Last Reviewed 03/07/18 @ 01:05 by Bonilla Denise MD) Prostatitis, acute (Acute) Abdominal pain (Acute) Ileus (Acute) Sepsis (Acute) COPD exacerbation (Acute) Acute bronchitis (Acute) Acute respiratory insufficiency (Acute) Suicidal ideation (Resolved) 1. COPD exacerbation with possible bronchitis -Flu was negative blood cultures are pending -Continue with Solu-Medrol and DuoNeb -Per the daughter she has been giving him 1 mg a day of prednisone because of his RA, even though this medication was discontinued by his PCP -We will also continue his inhaled steroid -He states that he wears 3 L nasal cannula at night, but does not usually wear anything during the day 2. RA -He is to be on prednisone for this and was transitioned to hydroxychloroquine -The daughter does not feel that the Plaquenil is been controlling his symptoms as well and therefore restarted his prednisone 1 mg daily 3. Depression -Stable -Continue with Paxil 4. BPH -Normal UA likely urgency is from his BPH -Continue with Flomax 5. HTN/HLD/PVD/ischemic cardiomyopathy -Continue with his Coreg and his Lipitor -Echo in 2014 had an EF of 40% with a pulmonary artery systolic pressure of 30 mmHg -No signs of heart failure -Unsure as to why he is not on any antiplatelets 6. GERD -Stable -Continue with PPI DVT: Lovenox Code Visit Inpatient E&M: [id number] Subs Hosp L3
[2018-09-11] MEDS: Ipratropium/Albuterol Sulfate 3 ML AMPUL.NEB INHALATION (19:23)
[2018-09-11] MEDS: Carvedilol 6.25 MG Tablet PO (21:01)
[2018-09-11] MEDS: 0.9% NaCl Peripheral Flush Adult/Peds IV (21:02)
[2018-09-11] MEDS: Pantoprazole Sodium 40 MG Tablet PO (21:02)
[2018-09-11] MEDS: Atorvastatin Calcium 80 MG Tablet PO (21:02)
[2018-09-12] VITALS (14 sets, daily range): BP systolic 104–143; BP diastolic 56–72; PULSE 65–85; RESP 16–20; TEMP 36.6–36.9; O2SAT 89–98
[2018-09-12] MEDS: 0.9% NaCl Peripheral Flush Adult/Peds IV ×3 (05:30→22:09)
[2018-09-12 06:34] LABS: Absolute Lymphocyte Count 0.35 X10^3/ul (0.83-4.51); Absolute Neutrophil Count 8.1 X10^3/uL (2.0-7.7); Basophil# 0.01 X10^3/uL; Basophil% 0.1 % (0-1); Hematocrit 35.2 % (40-54); Hemoglobin 11.8 g/dl (13.0-16.5); Lymphocyte # 0.35 X10^3/ul (4.0); Lymphocyte % 4.1 % (19-41); Mean Corp Hgb Conc 33.5 g/gl (32-36); Mean Corpuscular Hgb 32.2 pg (27.0-32.0); Mean Corpuscular Volume 95.9 fL (80-94); Mean Platelet Vol. 10.6 fl (6.2-12.0); Monocyte# 0.19 X10^3/uL; Monocyte% 2.2 % (0-10); Neutrophil # 8.07 X10^3/uL (2.7-7.7); Neutrophil % 93.5 % (47-70); Platelet Count 155 K/mm3 (150-450); RBC Distribution Width CV 13.3 % (11.6-14.6); RBC Distribution Width SD 46.4 fl (35.1-43.9); Red Blood Count 3.67 M/mm3 (4.6-6.2); White Blood Count 8.6 K/mm3 (4.4-11.0)
[2018-09-12 06:38] LABS: Anion Gap 8 (5-15); BUN 27 mg/dL (7-18); BUN/Creat Ratio 19.3 RATIO (10-20); Calcium,Total 8.4 mg/dL (8.5-10.1); Chloride 105 mmol/L (98-107); EST Glomerular Filtration Rate 53 mL/min (>60); Est Glom Filt Rate - Afr Amer 64 mL/min (>60); Estimated Creatinine Clearance 33.43 ml/min; Glucose 144 mg/dL (74-106); Potassium 4.2 mmol/L (3.5-5.1); Sodium Level 138 mmol/L (136-145)
[2018-09-12 06:50] LABS: Differential Indicated SCAN CRITERIA MET; POSITIVE COUNT NO; POSITIVE DIFFERENTIAL YES; POSITIVE MORPHOLOGY NO
[2018-09-12] MEDS: Ipratropium/Albuterol Sulfate 3 ML AMPUL.NEB INHALATION ×4 (07:05→19:40)
--- NOTE | 2018-09-12 09:09 | CASEMGMT ---
Patient has a Healthcare POA and Healthcare LW on file. His granddaughter is his POA (Kathia Smith). Tere ARGUETA MSW
[2018-09-12] MEDS: Hydroxychloroquine 200 MG Tablet PO (10:10)
[2018-09-12] MEDS: Pantoprazole Sodium 40 MG Tablet PO ×2 (10:11→22:09)
[2018-09-12] MEDS: Carvedilol 6.25 MG Tablet PO ×2 (10:11→22:09)
[2018-09-12] MEDS: Paroxetine 20 MG Tablet PO (10:11)
[2018-09-12] MEDS: Enoxaparin 40 MG/0.4 ML Syringe SC (10:11)
--- NOTE | 2018-09-12 11:29 | CASEMGMT ---
LINDA OLIVA assessment: Face to Face with patient for initial transition planning/care coordination assessment. LINDA OLIVA introduced self and role at [facility], pt voices understanding and consents to assessment at this time. Pt is sitting up in bed in no distress at this time. Pt is A/Ox4 at this time and answers all questions appropriately at this time. Care providers, pharmacy, and demographics verified at this time. 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 but does not remember names. Preferred [facility]acy: [facility] Insurance: [facility] A/B, [place] Prescription Benefit: [place] Living Will/HPOA: Pt states has LW/HPOA and they are on file at [facility] at this time. Pt's granddaughter, Kathia Smith, is HPOA. LNOK: Kathia Smith, granddaughter/HPOA; Jud Loyd, daughter Living Arrangements: Pt states lives with 7 other family members in [facility] with 6 steps with rail on both sides out of house and states no concerns at home at this time. Pt states that family helps him with bathing at times. Transportation: Pt states drives self and states no transportation concerns at this time. DME/HHC: Pt states has the following DME: cane, walker, walk-in shower, shower chair, grab bars, nebulizer, and states that he 'borrows' his sister in law's oxygen at bedtime. Pt states that if he qualifies for home oxygen on his own, he would like [facility]. Pt states no hx of HHC or SNF in the past. Pt states that he is interested in Palliative/Hospice referral and would them to f/u after discharge. Abena MATTSON aware, voices understanding. Pt states no concerns with going home at time of discharge. Pt states is retired. Pt states does not smoke or drink ETOH. Pt states no further concerns/needs at this time. CM to follow for home oxygen and any further discharge planning/needs. Advised pt to ask for CM if any further questions/concerns/needs arise, voices understanding. Plan: Home [place] LINDA OLIVA
--- NOTE | 2018-09-12 13:02 | CASEMGMT ---
RN PJ said patient is interested in talking with Palliative Care/ Hospice once he goes home. SRINIVASAN called Siobhan at [facility] and made a referral. SRINIVASAN told her that patient wants to meet with them once he is home. SRINIVASAN faxed referral. Tere ARGUETA UNARMED SECURITY GUARD
--- NOTE | 2018-09-12 13:25 | PCM.PROGNOTE ---
Patient Problems: Active and Suspected Problems (Last Reviewed 03/07/18 @ 01:05 by Bonilla Denise MD) Sepsis (Acute) COPD exacerbation (Acute) Acute bronchitis (Acute) Acute respiratory insufficiency (Acute) Subjective: Patient seen and examined. Reports breathing is improved. Cough nonproductive. Requesting information about palliative/hospice services. - Physical Exam General: Alert, Oriented x3, Cooperative HEENT: Atraumatic, PERRLA, EOMI, Normocephalic Neck: Supple, No JVD, Negative Carotid Bruits Lungs: Diminished, Wheezes Cardiovascular: Regular rate, Regular Rhythm, Normal S1, Normal S2, No murmurs Abdomen: Bowel Sounds Present, Soft, Non Tender, Non-Distended Extremities: No clubbing, No cyanosis, No edema, Capillary Refill Less than 3 Seconds Skin: No rashes, No breakdown Musculoskeletal: No Tenderness to Palpation of Joints or Extremities Neurological: Cranial nerves II-XII grossly intact, Neuro grossly intact Psych/Mental Status: Normal Affect, Appropriate Vital Signs Temp Pulse Resp BP Pulse Ox 98.3 F 78 20 H 143/56 H 93 09/12/18 09:00 09/12/18 11:40 09/12/18 10:59 09/12/18 09:00 09/12/18 09:00 Oxygen Flow Rate (L/min) 2 Oxygen Delivery Method Nasal Cannula Weight: 110 lb 14.28 oz Body Mass Index (BMI) 17.6 Intake and Output for Last 24 Hours 09/10/18 09/11/18 09/12/18 23:59 23:59 23:59 Intake Total 240 / 240 200 / 200 Balance 240 / 240 200 / 200 Microbiology Past 72 Hours 09/11/18 15:21 Influenza Types A,B Direct FA (SEGUN) - Final Mucosa - Nasopharyngeal Laboratory Tests Past 24 Hrs 09/11/18 09/11/18 09/11/18 14:40 14:40 14:40 WBC 7.6 RBC 4.03 L Hgb 13.0 Hct 38.9 L MCV 96.5 H MCH 32.3 H MCHC 33.4 RDW 13.3 RDW Differential 46.9 H Plt Count 170 MPV 10.5 Immature Gran % (Auto) 0.100 Neut % (Auto) 85.6 H Lymph % (Auto) 7.5 L Sandoval % (Auto) 4.9 Eos % (Auto) 1.6 Baso % (Auto) 0.3 Absolute Neuts (auto) 6.5 Absolute Lymphs (auto) 0.57 L Total Counted Not Reportable Differential Comment SCANNED Sodium 137 Potassium 4.2 Chloride 104 Carbon Dioxide 28.0 Anion Gap 5 BUN 19 H Creatinine 1.57 H Estim Creat Clear Calc 31.99 Est GFR (MDRD) Af Amer 56 L Est GFR (MDRD) Non-Af 46 L BUN/Creatinine Ratio 12.1 Glucose 98 Lactic Acid 1.8 Calcium 8.9 Total Bilirubin 0.60 AST 30 ALT 22 Alkaline Phosphatase 134 H Total Protein 7.3 Albumin 3.6 Globulin 3.7 Albumin/Globulin Ratio 1.0 Urine Color Urine Clarity Urine pH Ur Specific [place] Urine Protein Urine Glucose (UA) Urine Ketones Urine Occult Blood Urine Nitrite Urine Bilirubin Urine Urobilinogen Ur Leukocyte Esterase Urine RBC Urine WBC Ur Squamous Epith Cells Urine Bacteria Urine Mucus 09/11/18 09/12/18 09/12/18 16:50 05:45 05:45 WBC 8.6 RBC 3.67 L Hgb 11.8 L Hct 35.2 L MCV 95.9 H MCH 32.2 H MCHC 33.5 RDW 13.3 RDW Differential 46.4 H Plt Count 155 MPV 10.6 Immature Gran % (Auto) 0.100 Neut % (Auto) 93.5 H Lymph % (Auto) 4.1 L Sandoval % (Auto) 2.2 Eos % (Auto) 0.0 Baso % (Auto) 0.1 Absolute Neuts (auto) 8.1 H Absolute Lymphs (auto) 0.35 L Total Counted Not Reportable Differential Comment Sodium 138 Potassium 4.2 Chloride 105 Carbon Dioxide 25.0 Anion Gap 8 BUN 27 H Creatinine 1.40 H Estim Creat Clear Calc 33.43 Est GFR (MDRD) Af Amer 64 Est GFR (MDRD) Non-Af 53 L BUN/Creatinine Ratio 19.3 Glucose 144 H Lactic Acid Calcium 8.4 L Total Bilirubin AST ALT Alkaline Phosphatase Total Protein Albumin Globulin Albumin/Globulin Ratio Urine Color Yellow Urine Clarity Clear Urine pH 6.5 Ur Specific [place] 1.010 Urine Protein 15 H Urine Glucose (UA) Normal Urine Ketones Negative Urine Occult Blood 10 H Urine Nitrite Negative Urine Bilirubin Negative Urine Urobilinogen Normal Ur Leukocyte Esterase Negative Urine RBC 0-5 SEEN Urine WBC 0 SEEN Ur Squamous Epith Cells 0-5 SEEN Urine Bacteria 0 SEEN Urine Mucus 0 SEEN Medical Necessity - Tobacco Use Smoking Status: Former smoker Tobacco Use: Cigarettes Assessment/Plan All Active Problems (Last Reviewed 03/07/18 @ 01:05 by Bonilla Denise MD) Prostatitis, acute (Acute) Abdominal pain (Acute) Ileus (Acute) Sepsis (Acute) COPD exacerbation (Acute) Acute bronchitis (Acute) Acute respiratory insufficiency (Acute) Suicidal ideation (Resolved) 1. Acute hypoxia secondary to COPD exacerbation-chest x-ray shows hyperinflation, no other acute process. Negative for influenza. IV Solu-Medrol. Albuterol and DuoNeb aerosols. Continue supplement oxygen to maintain O2 at or above 90%. Walking pulse ox prior to discharge. Patient requesting palliative/hospice consultation given end-stage COPD. Hospice referral made per social work. They will follow patient once home. 2. Chronic kidney disease stage III-stable, trend BMP. 3. Rheumatoid arthritis-continue Plaquenil regimen. Patient is on prednisone 1 mg daily as well. Steroids increased secondary to #1. 4. PVD-continue statin. Not on aspirin, Plavix. 5. Chronic systolic and diastolic CHF/ischemic cardiomyopathy/CAD-no acute CHF. Denies chest pain. Continue statin, carvedilol. 6. Hypertension-stable, continue carvedilol regimen. 7. Hyperlipidemia-continue statin. 8. Depression-continue home fluoxetine regimen. 9. BPH-continue home Flomax regimen. 10. GERD-continue PPI. DVT prophylaxis-Lovenox subcu This patient was seen by BRITT Rosa under the supervision of Dr. Pugh.
[2018-09-12] MEDS: Tamsulosin HCl 0.4 MG Capsule PO (17:35)
[2018-09-12] MEDS: Atorvastatin Calcium 80 MG Tablet PO (22:09)
[2018-09-13] VITALS (7 sets, daily range): BP systolic 110–129; BP diastolic 67–68; PULSE 68–82; RESP 16–20; TEMP 36.5–36.8; O2SAT 83–97
[2018-09-13] MEDS: 0.9% NaCl Peripheral Flush Adult/Peds IV (05:53)
[2018-09-13] MEDS: Ipratropium/Albuterol Sulfate 3 ML AMPUL.NEB INHALATION ×2 (07:05→10:48)
[2018-09-13] MEDS: Carvedilol 6.25 MG Tablet PO (09:36)
[2018-09-13] MEDS: Hydroxychloroquine 200 MG Tablet 300 MG PO (09:36)
[2018-09-13] MEDS: Enoxaparin 40 MG/0.4 ML Syringe SC (09:36)
[2018-09-13] MEDS: Pantoprazole Sodium 40 MG Tablet PO (09:36)
[2018-09-13] MEDS: Paroxetine 20 MG Tablet PO (09:36)
--- NOTE | 2018-09-13 10:58 | DCINST_ITS ---
- Discharge Diagnoses Current Active Problems: Current Active and Chronic Problems (Last Reviewed 03/07/18 @ 01:05 by Bonilla Denise MD) Sepsis (Acute) COPD exacerbation (Acute) Acute bronchitis (Acute) Acute respiratory insufficiency (Acute) You will use the following diet at home:: Cardiac Your food should be the consistency of: Regular Your liquids should be the consistency of: Regular/Thin Discharge Activity: Return to Normal Activity Allergies/Adverse Reactions: Allergies morphine Adverse Reaction (Verified 09/11/18 14:28) Nausea Medications to take at Discharge Paroxetine [Paxil] 20 mg PO DAILY 08/31/13 Atorvastatin Calcium [Lipitor] 80 mg PO QHS #30 tab 09/04/13 Albuterol Inhaler [Ventolin Hfa] 1 puff INHALATION Q4H PRN PRN 10/03/16 Beclomethasone Diprop Inhaler [Qvar 80 Mcg Inhaler] 1 puff INHALATION BID 10/03/16 Albuterol Aerosols [Ventolin Aerosols] 2.5 mg INHALATION 4X/DAY PRN 09/11/17 Hydroxychloroquine [Plaquenil] 200 mg PO MOWEFR 09/11/17 Hydroxychloroquine [Plaquenil] 300 mg PO SUTUTHSA 09/11/17 Omeprazole [Prilosec] 40 mg PO BID 09/11/17 Carvedilol [Coreg (Beta Gely)] 6.25 mg PO BID 09/11/18 Ipratropium/Albuterol Sulfate [Duoneb] 3 ml INHALATION TID PRN 09/11/18 Multivit-Min/FA/Lycopen/Lutein [Centrum Silver Men Tablet] 1 tab PO DAILY 09/11/18 Prednisone 1 mg PO DAILY 09/11/18 Tamsulosin HCl [Flomax] 0.4 mg PO DAILY@1730 09/11/18 Prednisone 10 mg PO UD #30 tab 09/13/18 The following prescriptions were given: Prednisone 10 mg PO UD #30 tab Primary Care Physician: Charly Benz MD [Primary Care Provider] - Please follow up with your Primary Care Physician in: 1-2 weeks Test Results: Test results from this visit will be discussed in further detail at your follow- up appointment, if applicable. Proposed Discharge Date: 09/13/18
--- NOTE | 2018-09-13 11:56 | PCM.DC.SUM ---
Discharge Date and Diagnosis - Problem List Patient Problems: Active and Suspected Problems (Last Reviewed 03/07/18 @ 01:05 by Bonilla Denise MD) Sepsis (Acute) COPD exacerbation (Acute) Acute bronchitis (Acute) Acute respiratory insufficiency (Acute) Date of Admission: 09/11/18 Date of Discharge: 09/13/18 - Primary Discharge Diagnosis Active and Suspected Problems (Last Reviewed 03/07/18 @ 01:05 by Bonilla Denise MD) Acute hypoxic respiratory failure 2/2 acute COPD exacerbation CKDIII Rheumatoid Arthritis PVD Chronic systolic /diastolic CHF, ischemic CM, CAD HTN HLD Depression BPH GERD - Secondary Discharge Diagnosis Chronic Problems (Last Reviewed 03/07/18 @ 01:05 by Bonilla Denise MD) Rheumatoid arthritis (Chronic) Ischemic cardiomyopathy (Chronic) Other manager safe (current) drug therapy (Chronic) Atherosclerotic heart disease of [place] coronary artery without angina pectoris (Chronic) Nondominant right coronary artery with total proximal occlusion Main coronary artery with 30% distal stenosis Left anterior descending artery with mild diffuse disease Ostial circumflex artery with 80% stenosis in a dominant vessel per [facility] 09/04/2013 Nonrheumatic tricuspid (valve) insufficiency (Chronic) Hyperlipidemia (Chronic) Depression (Chronic) COPD (chronic obstructive pulmonary disease) (Chronic) 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) 25% EF 09/06global diskinesia CKD (chronic kidney disease) stage 3, GFR 30-59 ml/min (Chronic) PVD (peripheral vascular disease) (Chronic) total occlusion of stents in iliacs, per cath 09/06 CÉSAR (acute kidney injury) (Chronic) Hospital Course and Treatment Imaging Results: RAD/Chest 1 View (Portable) IMPRESSION: There is hyperinflation of the lungs consistent with chronic obstructive lung disease (COPD). Operations: None Procedures: None Summary of Care Provided: Hospital Course: The patient is a 72 year old M with pmhx of COPD, RA, HLD, Depression, CKDIII, TVI, who presented to the ER with increased SOB despite home nebulizers and using his sisters oxygen. He appeared to by hypoxic requiring and initially requiring nonrebreather to maintain good sats. He was admitted to PCU and treated with steroids and aerosols. He responded well over the next two days. He was unable to be weaned off o2. He continued to require 2 lpm O2 to maintain good sats at discharge. This was arranged for him. He was transitioned to PO prednisone. He will continue nebulizer aerosols at [place]. He requested information about palliative care. They will follow with him when hes at home. He will follow up with his PCP in 1-2 weeks. This patient was seen by Pancho Seals PA-C under the supervision of Dr. Pugh. [] Patient Problems: Active and Suspected Problems (Last Reviewed 03/07/18 @ 01:05 by Bonilla Denise MD) Sepsis (Acute) COPD exacerbation (Acute) Acute bronchitis (Acute) Acute respiratory insufficiency (Acute) - Physical Exam General: Alert, Oriented x3, Cooperative HEENT: Atraumatic, PERRLA, EOMI, Normocephalic Neck: Supple, No JVD, Negative Carotid Bruits Lungs: Diminished, Wheezes Cardiovascular: Regular rate, No murmurs Abdomen: Bowel Sounds Present, Soft, Non Tender Extremities: No edema, Capillary Refill Less than 3 Seconds Skin: No rashes, No breakdown Musculoskeletal: No Tenderness to Palpation of Joints or Extremities Neurological: Cranial nerves II-XII grossly intact Psych/Mental Status: Normal Affect, Appropriate, Alert and oriented to time, place, person, mood and affect Vital Signs Temp Pulse Resp BP Pulse Ox 97.7 F L 70 16 110/67 95 09/13/18 09:45 09/13/18 11:02 09/13/18 10:49 09/13/18 09:45 09/13/18 10:49 Oxygen Flow Rate (L/min) [ 2 AMBULATION with Oxygen] Oxygen Flow Rate (L/min) 2 Oxygen Delivery Method Nasal Cannula Weight: 110 lb 14.28 oz Body Mass Index (BMI) 17.6 Intake and Output for Last 24 Hours 09/11/18 09/12/18 09/13/18 23:59 23:59 23:59 Intake Total 240 / 240 440 / 440 120 / 120 Balance 240 / 240 440 / 440 120 / 120 Microbiology Past 72 Hours 09/11/18 15:25 Blood Culture - Preliminary Blood Culture (Wb) - Left Hand No growth in 48 hours. 09/11/18 14:40 Blood Culture - Preliminary Blood Culture (Wb) - Right Forearm No growth in 48 hours. 09/11/18 15:21 Influenza Types A,B Direct FA (SEGUN) - Final Mucosa - Nasopharyngeal Discharge Diet: Low fat/ Low Cholesterol, 2000 mg Sodium Diet Discharge Activity: Return to Normal Activity Home Medications: Medications to take at Discharge Paroxetine [Paxil] 20 mg PO DAILY 08/31/13 Atorvastatin Calcium [Lipitor] 80 mg PO QHS #30 tab 09/04/13 Albuterol Inhaler [Ventolin Hfa] 1 puff INHALATION Q4H PRN PRN 10/03/16 Beclomethasone Diprop Inhaler [Qvar 80 Mcg Inhaler] 1 puff INHALATION BID 10/03/16 Albuterol Aerosols [Ventolin Aerosols] 2.5 mg INHALATION 4X/DAY PRN 09/11/17 Hydroxychloroquine [Plaquenil] 200 mg PO MOWEFR 09/11/17 Hydroxychloroquine [Plaquenil] 300 mg PO SUTUTHSA 09/11/17 Omeprazole [Prilosec] 40 mg PO BID 09/11/17 Carvedilol [Coreg (Beta Gely)] 6.25 mg PO BID 09/11/18 Ipratropium/Albuterol Sulfate [Duoneb] 3 ml INHALATION TID PRN 09/11/18 Multivit-Min/FA/Lycopen/Lutein [Centrum Silver Men Tablet] 1 tab PO DAILY 09/11/18 Prednisone 1 mg PO DAILY 09/11/18 Tamsulosin HCl [Flomax] 0.4 mg PO DAILY@1730 09/11/18 Prednisone 10 mg PO UD #30 tab 09/13/18 Following Prescrptions Were Given to Patient: Prednisone 10 mg PO UD #30 tab Primary Care Physician: Charly Benz MD [Primary Care Provider] - Please follow up with your Primary Care Physician in: 1-2 weeks Please Follow Up With: Elaine Sparrow NP-C Disposition: Home Minutes spent on discharge:: 35 Patient Condition:: Stable Medical Necessity - Tobacco Use Smoking Status: Former smoker Tobacco Use: Cigarettes Meaningful Use Info Meaningful Use Diagnoses (Choose all that apply): None applicable
--- NOTE | 2018-09-13 12:11 | DS.PCM_ITS ---
Addendum entered and electronically signed by RASHEEDA Gomez 09/13/18 15:24: Code Visit Discharge diagnosis Clarification, 1. primary diagnosis is acute hypoxic respiratory failure 2. Sepsis ruled out 3. Severe protein calorie malnutrition Original Note: Discharge Date and Diagnosis - Problem List Patient Problems: Active and Suspected Problems (Last Reviewed 03/07/18 @ 01:05 by Bonilla Denise MD) Sepsis (Acute) COPD exacerbation (Acute) Acute bronchitis (Acute) Acute respiratory insufficiency (Acute) Date of Admission: 09/11/18 Date of Discharge: 09/13/18 - Primary Discharge Diagnosis Active and Suspected Problems (Last Reviewed 03/07/18 @ 01:05 by Bonilla Denise MD) Acute hypoxic respiratory failure 2/2 acute COPD exacerbation CKDIII Rheumatoid Arthritis PVD Chronic systolic /diastolic CHF, ischemic CM, CAD HTN HLD Depression BPH GERD - Secondary Discharge Diagnosis Chronic Problems (Last Reviewed 03/07/18 @ 01:05 by Bonilla Denise MD) Rheumatoid arthritis (Chronic) Ischemic cardiomyopathy (Chronic) Other skilled nursing (current) drug therapy (Chronic) Atherosclerotic heart disease of [place] coronary artery without angina pectoris (Chronic) Nondominant right coronary artery with total proximal occlusion Main coronary artery with 30% distal stenosis Left anterior descending artery with mild diffuse disease Ostial circumflex artery with 80% stenosis in a dominant vessel per [facility] 09/04/2013 Nonrheumatic tricuspid (valve) insufficiency (Chronic) Hyperlipidemia (Chronic) Depression (Chronic) COPD (chronic obstructive pulmonary disease) (Chronic) 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) 25% EF 09/06global diskinesia CKD (chronic kidney disease) stage 3, GFR 30-59 ml/min (Chronic) PVD (peripheral vascular disease) (Chronic) total occlusion of stents in iliacs, per cath 09/06 CÉSAR (acute kidney injury) (Chronic) Hospital Course and Treatment Imaging Results: RAD/Chest 1 View (Portable) IMPRESSION: There is hyperinflation of the lungs consistent with chronic obstructive lung disease (COPD). Operations: None Procedures: None Summary of Care Provided: Hospital Course: The patient is a 72 year old M with pmhx of COPD, RA, HLD, Depression, CKDIII, TVI, who presented to the ER with increased SOB despite home nebulizers and using his sisters oxygen. He appeared to by hypoxic requiring and initially r equiring nonrebreather to maintain good sats. He was admitted to PCU and treated with steroids and aerosols. He responded well over the next two days. He was unable to be weaned off o2. He continued to require 2 lpm O2 to maintain good sats at discharge. This was arranged for him. He was transitioned to PO prednisone. He will continue nebulizer aerosols at [place]. He requested information about palliative care. They will follow with him when hes at home. He will follow up with his PCP in 1-2 weeks. This patient was seen by Pancho Seals PA-C under the supervision of Dr. Pugh. [] Patient Problems: Active and Suspected Problems (Last Reviewed 03/07/18 @ 01:05 by Bonilla Denise MD) Sepsis (Acute) COPD exacerbation (Acute) Acute bronchitis (Acute) Acute respiratory insufficiency (Acute) - Physical Exam General: Alert, Oriented x3, Cooperative HEENT: Atraumatic, PERRLA, EOMI, Normocephalic Neck: Supple, No JVD, Negative Carotid Bruits Lungs: Diminished, Wheezes Cardiovascular: Regular rate, No murmurs Abdomen: Bowel Sounds Present, Soft, Non Tender Extremities: No edema, Capillary Refill Less than 3 Seconds Skin: No rashes, No breakdown Musculoskeletal: No Tenderness to Palpation of Joints or Extremities Neurological: Cranial nerves II-XII grossly intact Psych/Mental Status: Normal Affect, Appropriate, Alert and oriented to time, place, person, mood and affect Vital Signs Temp Pulse Resp BP Pulse Ox 97.7 F L 70 16 110/67 95 09/13/18 09:45 09/13/18 11:02 09/13/18 10:49 09/13/18 09:45 09/13/18 10:49 Oxygen Flow Rate (L/min) [ 2 AMBULATION with Oxygen] Oxygen Flow Rate (L/min) 2 Oxygen Delivery Method Nasal Cannula Weight: 110 lb 14.28 oz Body Mass Index (BMI) 17.6 Intake and Output for Last 24 Hours 09/11/18 09/12/18 09/13/18 23:59 23:59 23:59 Intake Total 240 / 240 440 / 440 120 / 120 Balance 240 / 240 440 / 440 120 / 120 Microbiology Past 72 Hours 09/11/18 15:25 Blood Culture - Preliminary Blood Culture (Wb) - Left Hand No growth in 48 hours. 09/11/18 14:40 Blood Culture - Preliminary Blood Culture (Wb) - Right Forearm No growth in 48 hours. 09/11/18 15:21 Influenza Types A,B Direct FA (SEGUN) - Final Mucosa - Nasopharyngeal Discharge Diet: Low fat/ Low Cholesterol, 2000 mg Sodium Diet Discharge Activity: Return to Normal Activity Home Medications: Medications to take at Discharge Paroxetine [Paxil] 20 mg PO DAILY 08/31/13 Atorvastatin Calcium [Lipitor] 80 mg PO QHS #30 tab 09/04/13 Albuterol Inhaler [Ventolin Hfa] 1 puff INHALATION Q4H PRN PRN 10/03/16 Beclomethasone Diprop Inhaler [Qvar 80 Mcg Inhaler] 1 puff INHALATION BID 10/03/16 Albuterol Aerosols [Ventolin Aerosols] 2.5 mg INHALATION 4X/DAY PRN 09/11/17 Hydroxychloroquine [Plaquenil] 200 mg PO MOWEFR 09/11/17 Hydroxychloroquine [Plaquenil] 300 mg PO SUTUTHSA 09/11/17 Omeprazole [Prilosec] 40 mg PO BID 09/11/17 Carvedilol [Coreg (Beta Gely)] 6.25 mg PO BID 09/11/18 Ipratropium/Albuterol Sulfate [Duoneb] 3 ml INHALATION TID PRN 09/11/18 Multivit-Min/FA/Lycopen/Lutein [Centrum Silver Men Tablet] 1 tab PO DAILY 09/11/18 Prednisone 1 mg PO DAILY 09/11/18 Tamsulosin HCl [Flomax] 0.4 mg PO DAILY@1730 09/11/18 Prednisone 10 mg PO UD #30 tab 09/13/18 Following Prescrptions Were Given to Patient: Prednisone 10 mg PO UD #30 tab Primary Care Physician: Charly Benz MD [Primary Care Provider] - Please follow up with your Primary Care Physician in: 1-2 weeks Please Follow Up With: Elaine Sparrow NP-C Disposition: Home Minutes spent on discharge:: 35 Patient Condition:: Stable Medical Necessity - Tobacco Use Smoking Status: Former smoker Tobacco Use: Cigarettes Meaningful Use Info Meaningful Use Diagnoses (Choose all that apply): None applicable
--- NOTE | 2018-09-13 12:18 | CASEMGMT ---
Pt did qualify for home oxygen and referral faxed to [facility] at this time per pt request as well as F2F. Call to [facility] to notify of referral and that pt ready for discharge today and Emmie voices understanding. Magda MCKEON CM
--- NOTE | 2018-09-13 12:29 | CASEMGMT ---
SW faxed d/c instructions and summary to Palliative/Hospice. Tere ARGUETA SPECIAL EDUCATION MATH TEACHER
--- NOTE | 2018-09-14 14:11 | CASEMGMT ---
LINDA OLIVA Discharge F/U Phone Call LACE: 10 Strata: 3 Discharge date: 09/13/18 Call date: 09/14/18 Call time: [id number] Duration: 2 minutes Admission dx: COPD exacerbation Pt states he has been 'getting by' since home and states no concerns since getting up this am. Pt states no questions regarding discharge instructions/medications at this time. Pt states f/u appt's scheduled and plans to keep. Pt states no suggestions for [facility] at this time and states 'I don't think you could do any better, everyone was great from the smallest to the biggest.' Pt voices no further questions/concerns/needs at this time. [place] LINDA OLIVA
== END 2018-09-13 14:05 | disposition home or self-care (01) | DRG 189 ==
LOC: ED 16:05 → PCU 16:57
PROVIDERS: Admitting Provider Family Medicine; Emergency Provider Emergency Medicine; Family Provider Family Medicine; PCP Family Medicine; Visit Provider Internal Medicine
DX: J96.01 Acute respiratory failure with hypoxia (principal); E43 Unspecified severe protein-calorie malnutrition; Z68.1 Body mass index [BMI] 19.9 or less, adult; I13.0 Hypertensive heart and chronic kidney disease with heart failure and stage 1 through stage 4 chronic kidney disease, or unspecified chronic kidney disease; I50.42 Chronic combined systolic (congestive) and diastolic (congestive) heart failure; J44.1 Chronic obstructive pulmonary disease with (acute) exacerbation; M06.9 Rheumatoid arthritis, unspecified; N18.3 Chronic kidney disease, stage 3 (moderate); I73.9 Peripheral vascular disease, unspecified; E78.5 Hyperlipidemia, unspecified; F32.9 Major depressive disorder, single episode, unspecified; N40.0 Benign prostatic hyperplasia without lower urinary tract symptoms; K21.9 Gastro-esophageal reflux disease without esophagitis; I25.5 Ischemic cardiomyopathy; I25.10 Atherosclerotic heart disease of native coronary artery without angina pectoris; Z79.899 Other long term (current) drug therapy; Z87.891 Personal history of nicotine dependence
CPT/HCPCS: 36415; 71045; 80048; 80053; 81001; 83605; 85025; 87040; 87804; 94640; 94760; 97802; 99285; 99406; A4216